=== PATIENT | female | born 1965 | race Caucasian/White ===

== ENCOUNTER 2016-04-20 16:00 | Outpatient (RCR) | payer BC ==
--- OUTSIDE RECORDS SUMMARY | 2016-01-30 10:58 | XMS REPORT | Continuity of Care Document ---
Author Author [facility] Organization [facility] Address Unknown Phone Unavailable Care Team Providers Care Web Applications Programmer Name Role Phone Benjaminfrances Sherif PCP [phone] Source Comments Some departments are not documenting in the electronic medical record. If you do not see the information that you expected, contact Release of Information in the Health Information Management department at [phone] for further assistance in locating additional records.[facility] Active Allergies and Adverse Reactions No Known Allergies Current Medications Prescription Sig. Disp. Refills Start End Date Status Date furosemide (LASIX) 40 mg Take 40 mg by mouth Active tablet daily. OMEPRAZOLE (PRILOSEC PO) Take 20 mg by mouth Active daily. ACYCLOVIR (ZOVIRAX PO) Take 400 mg by mouth Active daily as needed. LORATADINE (CLARITIN PO) Take 10 mg by mouth daily Active as needed (allergic rhinnitis). HYDROcodone/acetaminophen Take 1-2 Tabs by mouth 40 Tab 0 08/04/19 Active (NORCO; VICODIN) 5-325 mg every 4-6 hours as needed 16 tablet for Pain senna/docusate Take 1 Tab by mouth at 30 Tab 1 08/05/19 Active (SENOKOT-S) 8.6/50 mg bedtime daily. 16 tablet mupirocin (BACTROBAN) 2 % Apply 22 g to affected 22 g 0 08/22/19 Active topical ointment area three times daily. 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 Cheng is a female who presented to [facility] on 06/15/2015 at age 49 for evaluation of right breast cancer. She first felt a lump in the right breast in the summer of 2014, but thought it was scar tissue from her previous reduction. When the area began to enlarge she called her PCP who sent her for imaging. Right breast sono-guided biopsy 01/18/15 ([place], [place]) revealed grade [address] chest/abdomen 01/18/15 ([place], [place]) revealed no evidence of metastasis. On the chest CT there was a 5.1 cm mass in the right breast that did not extend into the skin or muscle. There were no significantly enlarged lymph nodes in the axilla. The most prominent lymph node was an 8 mm infracarinal lymph node that was most likely reactive. Bone scan ([place], [place]) 01/21/15 revealed no evidence of metastasis. Ms. Cheng underwent right RSL lumpectomy/SLNB/oncoplastic tissue rearrangement on 08/04/15. Final pathology revealed a 4 cm tumor bed with 3.1 cm residual tumor; 60% viable cancer cellularity; all margins at least 1 cm; LVI absent; 2 negative SLNs. BREAST IMAGING: Mammogram: -- Bilateral diagnostic mammogram 01/18/15 ([place], [place]) revealed a 6.2 cm lobulated mass in the right inferior and medial breast. There were no left breast abnormalities. -- Bilateral diagnostic mammogram 06/15/15 ([facility]) revealed the known cancer in the deep right medial breast, measuring 3.1 cm. A clip was seen on the anterior aspect. No additional masses were seen. The left breast was unremarkable. Ultrasound: -- Right breast ultrasound 01/18/15 ([place], [place]) revealed a 4.5 cm hypoechoic mass with lobulated margins and internal vascularity at 4:30, 8-10 cm FTN. -- Right breast ultrasound 03/14/15 ([place], [place]) revealed a 3.9 cm hypoechoic mass at 4:30, 10 cm FTN compared to 4.5 cm previously. -- Right breast ultrasound 04/22/15 ([place], [place]) revealed a 3.2 cm mass at 4:30 compared to 3.9 cm previously. There was decreased vascularity with color Doppler. -- Right breast ultrasound 06/15/15 ([facility]) revealed the known cancer right breast 4:30, 10 cm FTN, currently measuring 2.4 cm. No additional masses were seen. Evaluation of the axilla showed no adenopathy. REPRODUCTIVE HEALTH: Age at first Menarche: 14 Age at First Live : N/A Age at Menopause: premenopausal : 1 Para: 0 : N/A PROCEDURE: 1. Bilateral breast reduction, 1997 2. Right RSL lumpectomy/SLNB/oncoplastic tissue rearrangement, 08/04/15 PERTINENT PMH: Hypothyroidism, HLD, borderline HTN FAMILY HISTORY: No family history of breast, ovarian, or pancreatic cancer. Maternal great uncle with prostate cancer in 70s PHYSICAL EXAM on PRESENTATION: Left - Exam consistent with previous reduction. No palpable masses. Right - Exam consistent with previous reduction. Thickening at 4:30 with no discrete mass. No supraclavicular or axillary adenopathy. MEDICAL ONCOLOGY: Dr. Deidra Castellano PRESENT THERAPY: Neoadjuvant AC/taxol, finished 07/15/15 REFERRED BY: Dr. Deidra Castellano Social History Tobacco Use Types Packs/Day Years Used Date Never Smoker Smokeless Tobacco: Never Used Alcohol Use Drinks/Week oz/Week Comments No Last Filed Vital Signs Vital Sign Reading Time Taken Blood Pressure 169/98 08/22/2015 10:58 AM CDT Pulse 81 08/22/2015 10:58 AM CDT Temperature 36.7 C (98.1 F) 08/22/2015 10:58 AM CDT Respiratory Rate 16 08/15/2015 3:11 PM CDT Height 1.753 m (5' 9") 08/22/2015 10:58 AM CDT Weight 167.377 kg (369 lb) 08/22/2015 10:58 AM CDT Body Mass Index 54.47 08/22/2015 10:58 AM CDT Oxygen Saturation 99% 08/15/2015 3:11 PM CDT Plan of Care Date Type Specialty Providers Description 02/02/2016 Appointment Obstetrics & Gynecology Echo Ward MD [address] [facility] [address] [place] [address] [phone] (Fax) 02/20/2016 Appointment Radiology Clarence West DO [address] [facility] [address] [place] [address] [phone] (Fax) 02/20/2016 Appointment Breast Clinic / Breast [place], [place], [facility] 02/20/2016 Appointment Breast Clinic / Breast Clarence West DO Center [address] [facility] [address] [place] [address] [phone] (Fax) Health Maintenance Due Date Last Done Comments Physical (Comprehensive) 1972 Exam Pertussis Vaccine 1977 Tetanus Vaccine 10/07/1983 Cervical Cancer Screening 10/07/1987 Influenza Vaccine 12/01/2015 Breast Cancer Screening 06/14/2017 06/15/2015 Results from Last 3 Months Not on file
[2016-03-21 10:44] LABS: BASOPHILS % (AUTO) 0 % (0-10); EOSINOPHILS # (AUTO) 0.1 10^3/uL (0.0-0.3); EOSINOPHILS % (AUTO) 2 % (0-10); LYMPHOCYTES # (AUTO) 1.4 X 10^3 (1.0-4.0); LYMPHOCYTES % (AUTO) 22 % (12-44); MEAN CORPUSCULAR HEMOGLOBIN 29 PG (25-34); MEAN CORPUSCULAR HGB CONC 34 G/DL (32-36); MEAN CORPUSCULAR VOLUME 86 FL (80-99); MEAN PLATELET VOLUME 9.2 FL (7.4-10.4); MONOCYTES # (AUTO) 0.5 X 10^3 (0.0-1.0); MONOCYTES % (AUTO) 7 % (0-12); NEUTROPHILS # (AUTO) 4.3 X 10^3 (1.8-7.8); NEUTROPHILS % (AUTO) 68 % (42-75); PLATELET COUNT 220 10^3/uL (130-400); RED BLOOD COUNT 4.42 10^6/uL (4.35-5.85); RED CELL DISTRIBUTION WIDTH 13.8 % (10.0-14.5); WHITE BLOOD COUNT 6.3 10^3/uL (4.3-11.0)
[2016-03-21 11:27] LABS: ALANINE AMINOTRANSFERASE 34 U/L (0-55); ALBUMIN 3.8 G/DL (3.2-4.5); ANION GAP 5 MMOL/L (5-14); ASPARTATE AMINO TRANSFERASE 30 U/L (5-34); BILIRUBIN,TOTAL 0.5 MG/DL (0.1-1.0); BLOOD UREA NITROGEN 12 MG/DL (7-18); BUN/CREATININE RATIO 16; CALCIUM 8.7 MG/DL (8.5-10.1); CARBON DIOXIDE 28 MMOL/L (21-32); CHLORIDE 106 MMOL/L (98-107); CREATININE SERUM 0.76 MG/DL (0.60-1.30); GFR ESTIMATED > 60; GLUCOSE 100 MG/DL (70-105); POTASSIUM 3.9 MMOL/L (3.6-5.0); SODIUM 139 MMOL/L (135-145); TOTAL PROTEIN 6.2 G/DL (6.4-8.2)
[~2016-04-20 16:00] MED LIST: GOSERELIN (ZOLADEX) 10.8 MG SYR SQ NR; HYDR-3730 PO
== END 2016-04-29 | disposition home or self-care (01) ==
LOC: ONC 16:00
PROVIDERS: ATTEND Internal Medicine Hematology & Oncology
DX: C50.311 Malignant neoplasm of lower-inner quadrant of right female breast (principal); Z17.0 Estrogen receptor positive status [ER+]; Z79.899 Other long term (current) drug therapy; Z45.2 Encounter for adjustment and management of vascular access device
CPT/HCPCS: 36591; 80053; 85025; 96402; 96523; 99213

== ENCOUNTER → 2016-08-13 | Outpatient (CLI) | payer BC ==
[~2016-08-13] MED LIST changes: +BARIUM SUSPENSION 2.1% (VANILLA SILQ) 450 ML PO ONE; +CATHETER FLUSH 10 ML SYR IV PRN; -GOSERELIN (ZOLADEX) 10.8 MG SYR SQ NR; +IOHEXOL 350 MG/ML 100 ML (OMNIPAQUE 350) VIAL IV ONE; +NS 100 ML (IVPB) BAG IV ONE
[2016-08-13] MEDS: CATHETER FLUSH 10 ML SYR IV PRN ×2 (09:41→09:56)
--- NOTE | 2016-08-13 15:51 | Diagnostic Imaging Report ---
PROCEDURE: CT chest and abdomen with contrast. INDICATION: Breast cancer. TECHNIQUE: CT imaging of the chest and abdomen following the administration of intravenous contrast. CORRELATION STUDY: 01/18/2015. FINDINGS: CT CHEST: Surgical changes to the right breast are present. Increased density with architectural distortion adjacent to the anterior chest wall. Within the region of clips is a soft tissue density measuring 3.7 x 2.5 cm. Overall appearance of the right breast has changed since prior imaging. No suggestion of pathologically enlarged axillary lymph nodes. No mediastinal and/or hilar lymph nodes. Heart size is enlarged. Small hiatal hernia at the EG junction. The lung masterson are clear. Osseous structures without acute findings. CT ABDOMEN: Diffuse hepatic steatosis, with the liver enlarged. Several small gallstones. The spleen, pancreas and adrenal glands are unremarkable. The abdominal aorta is normal in contour. Kidneys with normal enhancement. The visualized gastrointestinal tract without obstruction or inflammation. Appendix is normal. No abdominal ascites or free air. No pathologically enlarged central, retroperitoneal and/or mesenteric lymphadenopathy. Osseous structures are unremarkable. Pelvis is not imaged. IMPRESSION: CT CHEST: 1. Surgical changes to the right breast. There has been change in the overall appearance of the density with the previously noted mass not demonstrated; however, there is a new soft tissue density adjacent to the chest wall. This may be postoperative, however, correlation with mammographic findings recommended. 2. Otherwise negative for acute findings in the chest. CT ABDOMEN: 1. Negative for abdominal metastatic disease. 2. Hepatomegaly with hepatic steatosis. 3. Cholelithiasis. Dictated by: Dictated on workstation # [id number]
--- NOTE | 2016-08-13 19:17 | Diagnostic Imaging Report ---
Whole body bone scan. Technique: After the intravenous administration of 27.1 mCi of Technetium 99m MDP, whole body delayed phase bone scan images were obtained with lateral views of the head and neck and the chest regions. Indication: History of breast cancer. Findings: There is normal distribution of the radiotracer in the osseous structures. There is a urinary tract excretion seen. Mild increased uptake in the knees, ankles and to lesser extent in other joints are noted with no suspicious intense areas of increased uptake seen within the axial skeleton to suggest osseous metastasis. IMPRESSION: No scintigraphic evidence of osseous metastasis. Dictated by: Dictated on workstation # [id number]
--- NOTE | 2016-08-13 20:01 | Diagnostic Imaging Report ---
Bilateral diagnostic mammogram. The current study was also evaluated with a Computer Aided Detection (CAD) system. INDICATION: History of right breast cancer. Right breast pain. COMPARISON: 02/20/2016. FINDINGS: The breasts are composed of scattered fibroglandular densities. There are surgical clips in the medial aspect of the right breast. Post lumpectomy changes on the right side and post reduction changes are seen on the left side. No developing mass, suspicious calcification or architectural distortion is seen. IMPRESSION: Postsurgical changes seen in both breasts with no mammographic evidence for malignancy. Ultrasound evaluation of area of pain in the right breast is pending. ACR BI-RADS Category 0: Incomplete. (Needs additional imaging evaluation). Result letter will be mailed to the patient. Note: At least 10% of breast cancer is not imaged by mammography. Dictated by: Dictated on workstation # [id number]
--- NOTE | 2016-08-13 20:09 | Diagnostic Imaging Report ---
Right breast ultrasound. INDICATION: Right breast pain. FINDINGS: There is 2.3 x 1.2 x 2.4 cm complex cystic area with internal hypoechogenicity that does not demonstrate internal color flow with color Doppler likely related to a complicated seroma with internal debris or blood products and this is seen at the 4 o'clock position at the lumpectomy site area. Area of pain in the medial aspect of the right breast is included in the scanned area and demonstrates no definite abnormality. IMPRESSION: Findings suggestive of complicated seroma at the lumpectomy site. Six-month follow-up right breast mammogram and ultrasound is recommended to ensure stability. ACR BI-RADS Category 3: Probably benign findings. Dictated by: Dictated on workstation # [id number]
== END ==
LOC: RAD 08:07
PROVIDERS: ATTEND Nurse Practitioner Adult Health
DX: C50.311 Malignant neoplasm of lower-inner quadrant of right female breast (principal); N64.4 Mastodynia
CPT/HCPCS: 71260; 74160; 77066; 78306

== ENCOUNTER → 2016-08-14 | Outpatient (RCR) | payer BC ==
--- OUTSIDE RECORDS SUMMARY | 2016-05-16 14:01 | XMS REPORT | Continuity of Care Document ---
Author Author [facility] Organization [facility] Address Unknown Phone Unavailable Care Team Providers Care Dealer Compliance Representative Name Role Phone Madison Sherif PCP [phone] Source Comments Some departments are not documenting in the electronic medical record. If you do not see the information that you expected, contact Release of Information in the Health Information Management department at [phone] for further assistance in locating additional records.[facility] Active Allergies and Adverse Reactions No Known Allergies Current Medications Prescription Sig. Disp. Refills Start End Date Status Date furosemide (LASIX) 40 mg Take 40 mg by mouth Active tablet daily. OMEPRAZOLE (PRILOSEC PO) Take 20 mg by mouth Active daily. LORATADINE (CLARITIN PO) Take 10 mg by mouth daily Active as needed (allergic rhinnitis). senna/docusate Take 1 Tab by mouth at 30 Tab 1 08/05/19 Active (SENOKOT-S) 8.6/50 mg bedtime daily. 16 tablet mupirocin (BACTROBAN) 2 % Apply 22 g to affected 22 g 0 08/22/19 Active topical ointment area three times daily. 16 tamoxifen (NOLVADEX) 20 Take 20 mg by mouth at Active mg tablet bedtime daily. lisinopril (PRINIVIL) 10 Take 10 mg by mouth Active mg tablet daily. amLODIPine (NORVASC) 10 Take 10 mg by mouth Active mg tablet daily. Active Problems Problem Noted Date Malignant neoplasm [...] for imaging. Right breast sono-guided biopsy 01/18/15 ([place], [place]) revealed grade [address] chest/abdomen 01/18/15 ([place], [place]) revealed no evidence of metastasis. On the chest CT there was a 5.1 cm mass in the right breast that did not extend into the skin or muscle. There were no significantly enlarged lymph nodes in the axilla. The most prominent lymph node was an 8 mm infracarinal lymph node that was most likely reactive. Bone scan ([place], [place]) 01/21/15 revealed no evidence of metastasis. Ms. Cheng underwent right RSL lumpectomy/SLNB/oncoplastic tissue rearrangement on 08/04/15. Final pathology revealed a 4 cm tumor bed with 3.1 cm residual tumor; 60% viable cancer cellularity; all margins at least 1 cm; LVI absent; 2 negative SLNs. She finished radiation therapy with Dr. Mei in 10/2015. She started Tamoxifen in 10/2015. BREAST IMAGING: Mammogram: -- Bilateral diagnostic mammogram 01/18/15 ([place], [place]) revealed a 6.2 cm lobulated mass in the right inferior and medial breast. There were no left breast abnormalities. -- Bilateral diagnostic mammogram 06/15/15 () revealed the known cancer in the deep right medial breast, measuring 3.1 cm. A clip was seen on the anterior aspect. No additional masses were seen. The left breast was unremarkable. Ultrasound: -- Right breast ultrasound 01/18/15 ([place], [place]) revealed a 4.5 cm hypoechoic mass with lobulated margins and internal vascularity at 4:30, 8-10 cm FTN. -- Right breast ultrasound 03/14/15 ([place], [place]) revealed a 3.9 cm hypoechoic mass at 4:30, 10 cm FTN compared to 4.5 cm previously. -- Right breast ultrasound 04/22/15 ([place], [place]) revealed a 3.2 cm mass at [...] Deidra Castellano PRESENT THERAPY: Neoadjuvant AC/taxol, finished 07/15/15. Tamoxifen started 10/2015. REFERRED BY: Dr. Deidra Castellano Most Recent Encounters Date Type Specialty Providers Description 03/07/2016 Telephone Breast Clinic / Breast Clarence West DO Appointment - clinic Center freeze, patient reschedule 02/21/2016 Telephone Oncology Clarence West DO Results 02/20/2016 Office Visit Breast Clinic / Breast Clarence West DO Malignant neoplasm of Center lower-inner quadrant of right female breast (HCC) (Primary Dx) 02/20/2016 Nurse Only Breast Clinic / Breast Clarence West DO At risk for lymphedema Center Xenia Pugh RN (Primary Dx) 02/20/2016 Hospital Radiology Clarence West DO Encounter Carisa Aleman PA-C 02/20/2016 Ancillary Breast Clinic / Breast Carisa Aleman PA-C Malignant neoplasm of Orders Center lower-inner quadrant of right female breast (HCC) (Primary Dx) Social History Tobacco Use Types Packs/Day Years Used Date Never Smoker Smokeless Tobacco: Never Used Alcohol Use Drinks/Week oz/Week Comments No Last Filed Vital Signs Vital Sign Reading Time Taken Blood Pressure 138/88 02/20/2016 3:17 PM DIAGNOSTIC IMAGING MANAGER Pulse 82 02/20/2016 3:17 PM DIAGNOSTIC IMAGING MANAGER Temperature 36.6 C (97.8 F) 02/20/2016 3:17 PM DIAGNOSTIC IMAGING MANAGER Respiratory Rate 16 02/20/2016 3:17 PM DIAGNOSTIC IMAGING MANAGER Height 1.753 m (5' 9.02") 02/20/2016 3:17 PM DIAGNOSTIC IMAGING MANAGER Weight 165.109 kg (364 lb) 02/20/2016 3:17 PM DIAGNOSTIC IMAGING MANAGER Body Mass Index 53.73 02/20/2016 3:17 PM DIAGNOSTIC IMAGING MANAGER Oxygen Saturation 99% 02/20/2016 3:17 PM DIAGNOSTIC IMAGING MANAGER Plan of Care Date Type Specialty Providers Description 09/17/2016 Appointment Breast Clinic / Breast Xenia Pugh, RN Center 09/17/2016 Appointment Breast Clinic / Breast Clarence West DO Center [address] [place] [address] [phone] (Fax) 09/17/2016 Appointment Radiology Clarence West DO [address] [place] [address] [phone] (Fax) Health Maintenance Due Date Last Done Comments Physical (Comprehensive) 1972 Exam Pertussis Vaccine 1977 Tetanus Vaccine 10/07/1983 Cervical Cancer Screening 10/07/1987 Influenza Vaccine 12/01/2015 Breast Cancer Screening 06/14/2016 06/15/2015 Results from Last 3 Months MAMMO DIAGNOSTIC RT/ZIGGY (02/20/2016 2:22 PM) Impressions ACR BI-RADS Assessments: BIRAD 2-Benign RECOMMENDATION: Routine screening mammogram of both breasts in 6 months. Narrative Last mammogram was performed 8 months ago. Reason for exam: history of breast cancer, conservation therapy. first time back from reduction and lumpectomy. Performed by: Kendal Lamas Enterprise Project Manager [id number] MAMMO DIAGNOSTIC RT/ZIGGY: RIGHT BREAST - FEBRUARY 20, 2016 - 2D/3D Procedure 3D Routine views. 2D Routine views. Technologist: [employer] Prior study comparison: August 02, 2015, right breast [id number] MAMMO DIAG RT, performed at [facility].June 15, 2015, bilateral [id number] MAMMO DIAGNOSTIC CHANDRAKANT/ZIGGY, performed at [facility] Breast [facility].June 15, 2015, right breast [id number] US BREAST TARGET RT, performed at [facility]. April 22, 2015, right breast ultrasound.March 14, 2015, right breast ultrasound. There are scattered areas of fibroglandular density.50-year-old female presents for initial postoperative evaluation of the right breast after lumpectomy and radiation therapy. New right breast baseline. 2-D and 3-D tomosynthesis images were obtained of the right breast. Post therapeutic changes are demonstrated. No mass, microcalcification, or suspicious architectural distortion is identified. Approved by Shari Lewis D.O. on 02/20/2016 3:18 PM By my electronic signature, I attest that I have personally reviewed the images for this examination and formulated the interpretations and opinions expressed in this report Finalized by Sony Ritchie M.D. on 02/20/2016 4:15 PM. Dictated by Shari Lewis D.O. on 02/20/2016 2:27 PM. Electronically signed and approved by: Sony Ritchie M.D. [id number] Procedure Note Interface, Radiant Results - Mon Feb 20, 2016 4:16 PM DIAGNOSTIC IMAGING MANAGER Last mammogram was performed 8 months ago. Reason for exam: history of breast cancer, conservation therapy. first time back from reduction and lumpectomy. Performed by: Kendal Lamas Enterprise Project Manager [id number] MAMMO DIAGNOSTIC RT/ZIGGY: RIGHT BREAST - FEBRUARY 20, 2016 - 2D/3D Procedure 3D Routine views. 2D Routine views. Technologist: Elton Painting Prior study comparison: August 02, 2015, right breast [id number] MAMMO DIAG RT, performed at [facility]. June 15, 2015, bilateral [id number] MAMMO DIAGNOSTIC CHANDRAKANT/ZIGGY, performed at [facility] Breast I. June 15, 2015, right breast [id number] US BREAST TARGET RT, performed at [facility]. April 22, 2015, right breast ultrasound. March 14, 2015, right breast ultrasound. There are scattered areas of fibroglandular density. 50-year-old female presents for initial postoperative evaluation of the right breast after lumpectomy and radiation therapy. New right breast baseline. 2-D and 3-D tomosynthesis images were obtained of the right breast. Post therapeutic changes are demonstrated. No mass, microcalcification, or suspicious architectural distortion is identified. Approved by Shari Lewis D.O. on 02/20/2016 3:18 PM By my electronic signature, I attest that I have personally reviewed the images for this examination and formulated the interpretations and opinions expressed in this report Finalized by Sony Ritchie M.D. on 02/20/2016 4:15 PM. Dictated by Shari Lewis D.O. on 02/20/2016 2:27 PM. Electronically signed and approved by: Sony Ritchie M.D. [id number] IMPRESSION ACR BI-RADS Assessments: BIRAD 2-Benign RECOMMENDATION: Routine screening mammogram of both breasts in 6 months.
[2016-06-13 11:21] LABS: BASOPHILS % (AUTO) 0 % (0-10); EOSINOPHILS # (AUTO) 0.1 10^3/uL (0.0-0.3); EOSINOPHILS % (AUTO) 2 % (0-10); LYMPHOCYTES # (AUTO) 1.3 X 10^3 (1.0-4.0); LYMPHOCYTES % (AUTO) 22 % (12-44); MEAN CORPUSCULAR HEMOGLOBIN 29 PG (25-34); MEAN CORPUSCULAR HGB CONC 34 G/DL (32-36); MEAN CORPUSCULAR VOLUME 87 FL (80-99); MEAN PLATELET VOLUME 9.2 FL (7.4-10.4); MONOCYTES # (AUTO) 0.4 X 10^3 (0.0-1.0); MONOCYTES % (AUTO) 6 % (0-12); NEUTROPHILS # (AUTO) 4.1 X 10^3 (1.8-7.8); NEUTROPHILS % (AUTO) 69 % (42-75); PLATELET COUNT 229 10^3/uL (130-400); RED BLOOD COUNT 4.43 10^6/uL (4.35-5.85); RED CELL DISTRIBUTION WIDTH 13.8 % (10.0-14.5)
[2016-06-13 11:47] LABS: ALANINE AMINOTRANSFERASE 38 U/L (0-55); ALBUMIN 3.6 G/DL (3.2-4.5); ANION GAP 10 MMOL/L (5-14); ASPARTATE AMINO TRANSFERASE 36 U/L (5-34); BILIRUBIN,TOTAL 0.5 MG/DL (0.1-1.0); BLOOD UREA NITROGEN 10 MG/DL (7-18); BUN/CREATININE RATIO 13; CALCIUM 8.8 MG/DL (8.5-10.1); CARBON DIOXIDE 23 MMOL/L (21-32); CHLORIDE 108 MMOL/L (98-107); CREATININE SERUM 0.75 MG/DL (0.60-1.30); GFR ESTIMATED > 60; GLUCOSE 113 MG/DL (70-105); SODIUM 141 MMOL/L (135-145); TOTAL PROTEIN 6.1 G/DL (6.4-8.2)
[2016-07-12 15:57] LABS: BASOPHILS % (AUTO) 0 % (0-10); EOSINOPHILS # (AUTO) 0.2 10^3/uL (0.0-0.3); EOSINOPHILS % (AUTO) 2 % (0-10); LYMPHOCYTES # (AUTO) 1.9 X 10^3 (1.0-4.0); LYMPHOCYTES % (AUTO) 26 % (12-44); MEAN CORPUSCULAR HEMOGLOBIN 29 PG (25-34); MEAN CORPUSCULAR HGB CONC 34 G/DL (32-36); MEAN CORPUSCULAR VOLUME 87 FL (80-99); MEAN PLATELET VOLUME 9.3 FL (7.4-10.4); MONOCYTES # (AUTO) 0.5 X 10^3 (0.0-1.0); MONOCYTES % (AUTO) 6 % (0-12); NEUTROPHILS # (AUTO) 4.9 X 10^3 (1.8-7.8); NEUTROPHILS % (AUTO) 66 % (42-75); PLATELET COUNT 248 10^3/uL (130-400); RED BLOOD COUNT 4.44 10^6/uL (4.35-5.85); RED CELL DISTRIBUTION WIDTH 13.6 % (10.0-14.5); WHITE BLOOD COUNT 7.5 10^3/uL (4.3-11.0)
[2016-07-12 16:23] LABS: ANION GAP 9 MMOL/L (5-14); BLOOD UREA NITROGEN 10 MG/DL (7-18); CARBON DIOXIDE 26 MMOL/L (21-32); CHLORIDE 107 MMOL/L (98-107); CREATININE SERUM 0.81 MG/DL (0.60-1.30); POTASSIUM 3.9 MMOL/L (3.6-5.0); SODIUM 142 MMOL/L (135-145)
[2016-07-12 16:24] LABS: ALANINE AMINOTRANSFERASE 36 U/L (0-55); ALBUMIN 3.6 G/DL (3.2-4.5); ASPARTATE AMINO TRANSFERASE 33 U/L (5-34); BILIRUBIN,TOTAL 0.3 MG/DL (0.1-1.0); BUN/CREATININE RATIO 12; CALCIUM 8.7 MG/DL (8.5-10.1); GFR ESTIMATED > 60; GLUCOSE 123 MG/DL (70-105); TOTAL PROTEIN 6.3 G/DL (6.4-8.2)
[2016-08-13 10:26] LABS: BASOPHILS % (AUTO) 1 % (0-10); EOSINOPHILS # (AUTO) 0.2 10^3/uL (0.0-0.3); EOSINOPHILS % (AUTO) 3 % (0-10); LYMPHOCYTES # (AUTO) 1.4 X 10^3 (1.0-4.0); LYMPHOCYTES % (AUTO) 24 % (12-44); MEAN CORPUSCULAR HEMOGLOBIN 30 PG (25-34); MEAN CORPUSCULAR HGB CONC 34 G/DL (32-36); MEAN CORPUSCULAR VOLUME 88 FL (80-99); MEAN PLATELET VOLUME 9.6 FL (7.4-10.4); MONOCYTES # (AUTO) 0.4 X 10^3 (0.0-1.0); MONOCYTES % (AUTO) 8 % (0-12); NEUTROPHILS # (AUTO) 3.8 X 10^3 (1.8-7.8); NEUTROPHILS % (AUTO) 65 % (42-75); PLATELET COUNT 213 10^3/uL (130-400); RED BLOOD COUNT 4.22 10^6/uL (4.35-5.85); RED CELL DISTRIBUTION WIDTH 13.6 % (10.0-14.5); WHITE BLOOD COUNT 5.9 10^3/uL (4.3-11.0)
[2016-08-13 11:11] LABS: ALANINE AMINOTRANSFERASE 40 U/L (0-55); ALBUMIN 3.6 G/DL (3.2-4.5); ANION GAP 6 MMOL/L (5-14); ASPARTATE AMINO TRANSFERASE 38 U/L (5-34); BILIRUBIN,TOTAL 0.5 MG/DL (0.1-1.0); BLOOD UREA NITROGEN 9 MG/DL (7-18); BUN/CREATININE RATIO 12; CALCIUM 8.8 MG/DL (8.5-10.1); CARBON DIOXIDE 27 MMOL/L (21-32); CHLORIDE 108 MMOL/L (98-107); CREATININE SERUM 0.77 MG/DL (0.60-1.30); GFR ESTIMATED > 60; GLUCOSE 112 MG/DL (70-105); POTASSIUM 4.3 MMOL/L (3.6-5.0); SODIUM 141 MMOL/L (135-145)
[~2016-08-14] MED LIST changes: -BARIUM SUSPENSION 2.1% (VANILLA SILQ) 450 ML PO ONE; -CATHETER FLUSH 10 ML SYR IV PRN; +GOSERELIN (ZOLADEX) 10.8 MG SYR SQ PRN; -IOHEXOL 350 MG/ML 100 ML (OMNIPAQUE 350) VIAL IV ONE; -NS 100 ML (IVPB) BAG IV ONE
== END | disposition home or self-care (01) ==
LOC: ONC 05-16 13:58
PROVIDERS: ATTEND Internal Medicine Hematology & Oncology
DX: C50.311 Malignant neoplasm of lower-inner quadrant of right female breast (principal); Z17.0 Estrogen receptor positive status [ER+]; Z79.899 Other long term (current) drug therapy; Z45.2 Encounter for adjustment and management of vascular access device
CPT/HCPCS: 36591; 80053; 85025; 96402; 96523; 99213

== ENCOUNTER → 2016-11-19 | Outpatient (CLI) | payer BC ==
[~2016-11-19] MED LIST changes: -GOSERELIN (ZOLADEX) 10.8 MG SYR SQ PRN
--- NOTE | 2016-11-19 10:43 | Diagnostic Imaging Report ---
INDICATION: History of breast cancer, followup seroma in the left breast. COMPARISON: 08/13/2016. FINDINGS: The focused ultrasound examination of the 4 o'clock position of the left breast demonstrates a partial fluid collection that is stable in size measuring 25 x 11 mm. Overall, there is slightly more echogenic material, likely representing resolving seroma and/or hematoma. There is no abnormal blood flow. The adjacent smaller seroma is no longer seen on this followup study. IMPRESSION: Likely evolving benign seroma with more solid components on today's exam. An additional 6 month followup is recommended. ACR BI-RADS Category 3: Probably benign findings. Result letter will be mailed to the patient. Note: At least 10% of breast cancer is not imaged by mammography. Dictated by: Dictated on workstation # [id number]
== END ==
LOC: RAD 08:52
PROVIDERS: ATTEND Nurse Practitioner Adult Health
DX: N64.89 Other specified disorders of breast (principal); C50.311 Malignant neoplasm of lower-inner quadrant of right female breast

== ENCOUNTER 2016-11-29 12:57 | Outpatient (RCR) | payer BC ==
[2016-09-06 13:15] LABS: BASOPHILS % (AUTO) 1 % (0-10); EOSINOPHILS # (AUTO) 0.2 10^3/uL (0.0-0.3); EOSINOPHILS % (AUTO) 3 % (0-10); LYMPHOCYTES # (AUTO) 1.7 X 10^3 (1.0-4.0); LYMPHOCYTES % (AUTO) 26 % (12-44); MEAN CORPUSCULAR HEMOGLOBIN 30 PG (25-34); MEAN CORPUSCULAR HGB CONC 34 G/DL (32-36); MEAN CORPUSCULAR VOLUME 87 FL (80-99); MEAN PLATELET VOLUME 9.4 FL (7.4-10.4); MONOCYTES # (AUTO) 0.4 X 10^3 (0.0-1.0); MONOCYTES % (AUTO) 7 % (0-12); NEUTROPHILS # (AUTO) 4.1 X 10^3 (1.8-7.8); NEUTROPHILS % (AUTO) 63 % (42-75); PLATELET COUNT 219 10^3/uL (130-400); RED BLOOD COUNT 4.27 10^6/uL (4.35-5.85); RED CELL DISTRIBUTION WIDTH 13.6 % (10.0-14.5); WHITE BLOOD COUNT 6.5 10^3/uL (4.3-11.0)
[2016-09-06 13:39] LABS: ALANINE AMINOTRANSFERASE 40 U/L (0-55); ALBUMIN 3.6 G/DL (3.2-4.5); ANION GAP 9 MMOL/L (5-14); ASPARTATE AMINO TRANSFERASE 36 U/L (5-34); BILIRUBIN,TOTAL 0.3 MG/DL (0.1-1.0); BLOOD UREA NITROGEN 9 MG/DL (7-18); BUN/CREATININE RATIO 12; CALCIUM 9.2 MG/DL (8.5-10.1); CARBON DIOXIDE 26 MMOL/L (21-32); CHLORIDE 108 MMOL/L (98-107); CREATININE SERUM 0.74 MG/DL (0.60-1.30); GFR ESTIMATED > 60; GLUCOSE 104 MG/DL (70-105); POTASSIUM 3.9 MMOL/L (3.6-5.0); SODIUM 143 MMOL/L (135-145); TOTAL PROTEIN 6.5 G/DL (6.4-8.2)
[~2016-11-29 12:57] MED LIST changes: +GOSERELIN (ZOLADEX) 10.8 MG SYR SQ PRN
[2016-11-29 13:16] LABS: BASOPHILS % (AUTO) 0 % (0-10); EOSINOPHILS # (AUTO) 0.2 10^3/uL (0.0-0.3); EOSINOPHILS % (AUTO) 3 % (0-10); LYMPHOCYTES # (AUTO) 1.7 X 10^3 (1.0-4.0); LYMPHOCYTES % (AUTO) 24 % (12-44); MEAN CORPUSCULAR HEMOGLOBIN 30 PG (25-34); MEAN CORPUSCULAR HGB CONC 34 G/DL (32-36); MEAN CORPUSCULAR VOLUME 88 FL (80-99); MEAN PLATELET VOLUME 9.7 FL (7.4-10.4); MONOCYTES # (AUTO) 0.4 X 10^3 (0.0-1.0); MONOCYTES % (AUTO) 6 % (0-12); NEUTROPHILS # (AUTO) 4.5 X 10^3 (1.8-7.8); NEUTROPHILS % (AUTO) 66 % (42-75); PLATELET COUNT 219 10^3/uL (130-400); RED BLOOD COUNT 4.19 10^6/uL (4.35-5.85); RED CELL DISTRIBUTION WIDTH 13.2 % (10.0-14.5); WHITE BLOOD COUNT 6.8 10^3/uL (4.3-11.0)
[2016-11-29 13:36] LABS: ALANINE AMINOTRANSFERASE 35 U/L (0-55); ALBUMIN 3.6 GM/DL (3.2-4.5); ANION GAP 9 MMOL/L (5-14); ASPARTATE AMINO TRANSFERASE 37 U/L (5-34); BILIRUBIN,TOTAL 0.4 MG/DL (0.1-1.0); BLOOD UREA NITROGEN 10 MG/DL (7-18); BUN/CREATININE RATIO 14; CALCIUM 8.7 MG/DL (8.5-10.1); CARBON DIOXIDE 24 MMOL/L (21-32); CHLORIDE 108 MMOL/L (98-107); CREATININE SERUM 0.73 MG/DL (0.60-1.30); GFR ESTIMATED > 60; GLUCOSE 117 MG/DL (70-105); POTASSIUM 3.9 MMOL/L (3.6-5.0); SODIUM 141 MMOL/L (135-145)
[2016-11-29] MEDS ORDERED: GOSERELIN ACETATE 3.6 MG SC ONE ×2 (14:15)
== END 2016-12-05 | disposition home or self-care (01) ==
LOC: ONC 12:57
PROVIDERS: ATTEND Internal Medicine Hematology & Oncology
DX: C50.311 Malignant neoplasm of lower-inner quadrant of right female breast (principal); Z17.0 Estrogen receptor positive status [ER+]; Z79.899 Other long term (current) drug therapy
CPT/HCPCS: 36591; 80053; 85025; 96402; 96523

== ENCOUNTER 2016-12-28 09:49 | Outpatient (RCR) | payer BC ==
[~2016-12-28 09:49] MED LIST changes: -GOSERELIN (ZOLADEX) 10.8 MG SYR SQ PRN; +GOSERELIN ACETATE 3.6 MG SC ONE
== END 2016-12-29 | disposition home or self-care (01) ==
LOC: ONC 09:49
PROVIDERS: ATTEND Internal Medicine Hematology & Oncology
DX: Z17.0 Estrogen receptor positive status [ER+]; Z45.2 Encounter for adjustment and management of vascular access device; C50.311 Malignant neoplasm of lower-inner quadrant of right female breast; Z79.899 Other long term (current) drug therapy
CPT/HCPCS: 96402; 96523

== ENCOUNTER 2017-04-19 12:14 | Outpatient (RCR) | payer BC ==
[2017-02-20 09:04] LABS: BASOPHILS % (AUTO) 1 % (0-10); EOSINOPHILS # (AUTO) 0.2 10^3/uL (0.0-0.3); EOSINOPHILS % (AUTO) 3 % (0-10); HEMATOCRIT 39 % (35-52); HEMOGLOBIN 13.5 G/DL (11.5-16.0); LYMPHOCYTES # (AUTO) 1.4 X 10^3 (1.0-4.0); LYMPHOCYTES % (AUTO) 24 % (12-44); MEAN CORPUSCULAR HEMOGLOBIN 31 PG (25-34); MEAN CORPUSCULAR HGB CONC 35 G/DL (32-36); MEAN CORPUSCULAR VOLUME 88 FL (80-99); MEAN PLATELET VOLUME 9.9 FL (7.4-10.4); MONOCYTES # (AUTO) 0.4 X 10^3 (0.0-1.0); MONOCYTES % (AUTO) 6 % (0-12); NEUTROPHILS # (AUTO) 3.7 X 10^3 (1.8-7.8); NEUTROPHILS % (AUTO) 66 % (42-75); PLATELET COUNT 200 10^3/uL (130-400); RED BLOOD COUNT 4.41 10^6/uL (4.35-5.85); RED CELL DISTRIBUTION WIDTH 13.1 % (10.0-14.5); WHITE BLOOD COUNT 5.6 10^3/uL (4.3-11.0)
[2017-02-20 09:26] LABS: ALANINE AMINOTRANSFERASE 28 U/L (0-55); ALBUMIN 3.7 GM/DL (3.2-4.5); ALKALINE PHOSPHATASE 68 U/L (40-136); BILIRUBIN,TOTAL 0.5 MG/DL (0.1-1.0); BUN/CREATININE RATIO 20; CARBON DIOXIDE 21 MMOL/L (21-32); CHLORIDE 109 MMOL/L (98-107); CREATININE SERUM 0.79 MG/DL (0.60-1.30); GFR ESTIMATED > 60; GLUCOSE 149 MG/DL (70-105); POTASSIUM 3.8 MMOL/L (3.6-5.0); SODIUM 142 MMOL/L (135-145); TOTAL PROTEIN 6.3 GM/DL (6.4-8.2)
[~2017-04-19 12:14] MED LIST changes: +GOSERELIN ACETATE 3.6 MG SC SCH
== END 2017-04-25 14:55 | disposition home or self-care (01) ==
LOC: ONC 12:14
PROVIDERS: ATTEND Internal Medicine Hematology & Oncology
DX: C50.311 Malignant neoplasm of lower-inner quadrant of right female breast (principal); Z17.0 Estrogen receptor positive status [ER+]; Z79.899 Other long term (current) drug therapy
CPT/HCPCS: 80053; 85025; 96402

== ENCOUNTER 2017-05-15 09:06 | Outpatient (RCR) | payer OTHER, BC ==
[~2017-05-15 09:06] MED LIST changes: -GOSERELIN ACETATE 3.6 MG SC SCH
[2017-05-15 09:25] LABS: BASOPHILS % (AUTO) 0 % (0-10); EOSINOPHILS # (AUTO) 0.1 10^3/uL (0.0-0.3); EOSINOPHILS % (AUTO) 2 % (0-10); HEMATOCRIT 39 % (35-52); HEMOGLOBIN 13.5 G/DL (11.5-16.0); LYMPHOCYTES # (AUTO) 1.8 X 10^3 (1.0-4.0); LYMPHOCYTES % (AUTO) 27 % (12-44); MEAN CORPUSCULAR HEMOGLOBIN 30 PG (25-34); MEAN CORPUSCULAR HGB CONC 35 G/DL (32-36); MEAN CORPUSCULAR VOLUME 87 FL (80-99); MEAN PLATELET VOLUME 9.3 FL (7.4-10.4); MONOCYTES # (AUTO) 0.4 X 10^3 (0.0-1.0); MONOCYTES % (AUTO) 6 % (0-12); NEUTROPHILS # (AUTO) 4.4 X 10^3 (1.8-7.8); NEUTROPHILS % (AUTO) 65 % (42-75); PLATELET COUNT 251 10^3/uL (130-400); RED BLOOD COUNT 4.44 10^6/uL (4.35-5.85); WHITE BLOOD COUNT 6.8 10^3/uL (4.3-11.0)
[2017-05-15 09:49] LABS: ALANINE AMINOTRANSFERASE 20 U/L (0-55); ALBUMIN 3.8 GM/DL (3.2-4.5); ALKALINE PHOSPHATASE 61 U/L (40-136); BILIRUBIN,TOTAL 0.5 MG/DL (0.1-1.0); BUN/CREATININE RATIO 16; CALCIUM 9.3 MG/DL (8.5-10.1); CARBON DIOXIDE 25 MMOL/L (21-32); CHLORIDE 109 MMOL/L (98-107); CREATININE SERUM 0.77 MG/DL (0.60-1.30); GFR ESTIMATED > 60; GLUCOSE 121 MG/DL (70-105); POTASSIUM 3.9 MMOL/L (3.6-5.0); SODIUM 142 MMOL/L (135-145); TOTAL PROTEIN 6.6 GM/DL (6.4-8.2)
[2017-05-15] MEDS ORDERED: GOSERELIN (ZOLADEX) 10.8 MG SYR SQ PRN (10:30)
== END 2017-07-18 | disposition home or self-care (01) ==
LOC: ONC 09:06
PROVIDERS: ATTEND Internal Medicine Hematology & Oncology
DX: C50.311 Malignant neoplasm of lower-inner quadrant of right female breast (principal); Z17.0 Estrogen receptor positive status [ER+]; Z79.899 Other long term (current) drug therapy
CPT/HCPCS: 80053; 85025; 96402

== ENCOUNTER → 2017-05-23 | Outpatient (CLI) | payer OTHER, BC ==
[~2017-05-23] MED LIST changes: -GOSERELIN ACETATE 3.6 MG SC ONE
--- NOTE | 2017-05-23 18:31 | Diagnostic Imaging Report ---
INDICATION: Right breast fluid collection. Patient presents for six-month follow-up. Correlation is made with prior ultrasound from 11/19/2016. FINDINGS: Sonographic interrogation of the 4 o'clock location of the right breast was performed. There continues to be slightly complex fluid collection at this location measuring 24 mm x 13 mm x 12 mm compared with 26 mm x 11 mm x 14 mm. There continues to be some internal debris. No internal vascularity is seen. No new abnormality is detected. IMPRESSION: Stable complex collection at the 4 o'clock location of the right breast, perhaps a resolving hematoma from prior surgery. Continued follow-up with repeat ultrasound in six months is recommended. ACR BI-RADS Category 3: Probably benign findings. Dictated by: Dictated on workstation # [id number]
== END ==
LOC: RAD 09:07
PROVIDERS: ATTEND Internal Medicine Hematology & Oncology
DX: C50.311 Malignant neoplasm of lower-inner quadrant of right female breast (principal); N64.89 Other specified disorders of breast

== ENCOUNTER 2017-08-07 08:48 | Outpatient (RCR) | payer BC, OTHER ==
[~2017-08-07 08:48] MED LIST changes: +GOSERELIN (ZOLADEX) 10.8 MG SYR SQ PRN
[2017-08-07 09:03] LABS: BASOPHILS % (AUTO) 0 % (0-10); EOSINOPHILS # (AUTO) 0.2 10^3/uL (0.0-0.3); EOSINOPHILS % (AUTO) 2 % (0-10); HEMATOCRIT 40 % (35-52); HEMOGLOBIN 13.9 G/DL (11.5-16.0); LYMPHOCYTES # (AUTO) 2.3 X 10^3 (1.0-4.0); LYMPHOCYTES % (AUTO) 29 % (12-44); MEAN CORPUSCULAR HEMOGLOBIN 29 PG (25-34); MEAN CORPUSCULAR HGB CONC 34 G/DL (32-36); MEAN CORPUSCULAR VOLUME 85 FL (80-99); MEAN PLATELET VOLUME 9.7 FL (7.4-10.4); MONOCYTES # (AUTO) 0.5 X 10^3 (0.0-1.0); MONOCYTES % (AUTO) 6 % (0-12); NEUTROPHILS % (AUTO) 63 % (42-75); PLATELET COUNT 256 10^3/uL (130-400); RED BLOOD COUNT 4.75 10^6/uL (4.35-5.85); RED CELL DISTRIBUTION WIDTH 13.5 % (10.0-14.5)
[2017-08-07 09:30] LABS: ALANINE AMINOTRANSFERASE 23 U/L (0-55); ALKALINE PHOSPHATASE 68 U/L (40-136); BILIRUBIN,TOTAL 0.5 MG/DL (0.1-1.0); BUN/CREATININE RATIO 15; CALCIUM 9.1 MG/DL (8.5-10.1); CARBON DIOXIDE 23 MMOL/L (21-32); CHLORIDE 107 MMOL/L (98-107); CREATININE SERUM 0.86 MG/DL (0.60-1.30); GFR ESTIMATED > 60; GLUCOSE 149 MG/DL (70-105); POTASSIUM 3.7 MMOL/L (3.6-5.0); SODIUM 140 MMOL/L (135-145); TOTAL PROTEIN 6.6 GM/DL (6.4-8.2)
[2017-09-18] MEDS ORDERED: LORA10TA76 PO (10:21)
[2017-09-18] MEDS ORDERED: OMEP20TA7 PO (10:21)
[2017-09-18] MEDS ORDERED: TAMO20TA2 PO (10:21)
[2017-09-18] MEDS ORDERED: GABA-488 PO (10:21)
[2017-09-18] MEDS ORDERED: AMLO2.5T PO (10:21)
[2017-09-18] MEDS ORDERED: AMLO5TAB4 PO (10:21)
[2017-09-25] MEDS ORDERED: PANT40TA2 PO (12:02)
== END 2017-11-05 | disposition home or self-care (01) ==
LOC: ONC 08:48
PROVIDERS: ATTEND Internal Medicine Hematology & Oncology
DX: C50.311 Malignant neoplasm of lower-inner quadrant of right female breast (principal); Z17.0 Estrogen receptor positive status [ER+]; Z79.899 Other long term (current) drug therapy
CPT/HCPCS: 36415; 80053; 85025; 99213

== ENCOUNTER → 2017-09-18 | Outpatient (CLI) | payer OTHER ==
[~2017-09-18] VITALS: Ht 177.8 cm; Wt 157.9 kg
[~2017-09-18] MED LIST changes: +AMLO2.5T PO; +AMLO5TAB4 PO; +GABA-488 PO; -GOSERELIN (ZOLADEX) 10.8 MG SYR SQ PRN; +LORA10TA76 PO; +OMEP20TA7 PO; +TAMO20TA2 PO
== END | disposition home or self-care (01) ==
LOC: PREOP 05:36
PROVIDERS: ATTEND Surgery
DX: Z01.818 Encounter for other preprocedural examination (principal)

== ENCOUNTER → 2017-09-25 | Day surgery (SDC) | payer OTHER ==
[~2017-09-25] VITALS: Ht 177.8 cm; Wt 157.9 kg
[~2017-09-25] MED LIST changes: +ACETAMINOPHEN 325 MG TABLET PO PRN; +HURRICAINE EXT TUBE (BENZOCAINE) ONE; +HURRICAINE EXT TUBE (BENZOCAINE) XX PRN; +HYDROcodone/APAP 5 MG/325 MG (LORTAB) TAB PO PRN; +LIDOCAINE JELLY 2% (XYLOCAINE) 5 ML TUBE MM PRN; +LIDOCAINE JELLY 2% (XYLOCAINE) 5 ML TUBE ONE; +MIDAZOLAM 2 MG/2 ML (VERSED) VIAL ONE; +NS IV 500 ML 500 ML IV SCH; +NS IV 500 ML 500 ML ONE; +ONDANSETRON 4 MG/2 ML (SDV) Z0FRAN IV PRN; +PANT40TA2 PO; +fentaNYL INJECTION 100 MCG/2 ML AMP ONE; +morphine INJ 10 MG/ML 1ML (SYR OR VIAL) IV PRN
[2017-09-25 10:05] VITALS: BP 150/93
--- OUTSIDE RECORDS SUMMARY | 2017-09-25 10:07 | XMS REPORT | Clinical Summary ---
Author Author [facility] Organization [facility] Address Unknown Phone Unavailable Care Team Providers Care Program Architect Name Role Phone Clarence West DO Unavailable Carisa Aleman PA-C Unavailable Sherif Wallace DO PCP Jh Irizarry MD Unavailable Mychart, Generic Provider Unavailable Unavailable Chuy Kidd RN Unavailable Unavailable Xenia Pugh RN Unavailable Unavailable Ellen Dykes RN Unavailable Unavailable Triny Early RN Unavailable Unavailable Source Comments Some departments are not documenting in the electronic medical record. If you do not see the information that you expected, contact Release of Information in the Health Information Management department at [phone] for further assistance in locating additional records.[facility] Allergies No Known Allergies Current Medications Prescription Sig. [...] (SENOKOT-S) 8.6/50 mg bedtime daily. 16 tablet tamoxifen (NOLVADEX) 20 Take 20 mg by mouth at Active mg tablet bedtime daily. lisinopril (PRINIVIL) 10 Take 10 mg by mouth Active mg tablet daily. amLODIPine (NORVASC) 10 Take 10 mg by mouth Active mg tablet daily. gabapentin (NEURONTIN) Take 300 mg by mouth at Active 300 mg capsule bedtime daily. GOSERELIN ACETATE Inject under the skin. 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 Martin is a female who presented to the [...] for imaging. Right breast sono-guided biopsy 01/18/15 ([place], [place]) revealed grade [address] chest/abdomen 01/18/15 ([place], [place]) revealed no evidence of metastasis. On the chest CT there was a 5.1 cm mass in the right breast that did not extend into the skin or muscle. There were no significantly enlarged lymph nodes in the axilla. The most prominent lymph node was an 8 mm infracarinal lymph node that was most likely reactive. Bone scan ([place], [place]) 01/21/15 revealed no evidence of metastasis. Ms. Martin underwent right RSL lumpectomy/SLNB/oncoplastic tissue rearrangement on 08/04/15. Final pathology revealed a 4 cm tumor bed with 3.1 cm residual tumor; 60% viable cancer cellularity; all margins at least 1 cm; LVI absent; 2 negative SLNs. She finished radiation therapy with Dr. Gale in 10/2015. She started Tamoxifen in 10/2015. BREAST IMAGING: Mammogram: -- Bilateral diagnostic mammogram 01/18/15 ([place], [place]) revealed a 6.2 cm lobulated mass in the right inferior and medial breast. There were no left breast abnormalities. -- Bilateral diagnostic mammogram 06/15/15 () revealed the known cancer in the deep right medial breast, measuring 3.1 cm. A clip was seen on the anterior aspect. No additional masses were seen. The left breast was unremarkable. -- Bilateral diagnostic mammogram 03/15/17 ([facility]) revealed scattered areas of fibroglandular density. There were post therapeutic changes seen. No masses, densities or calcifications to suggest malignancy. No change when compared to prior studies. Ultrasound: -- Right breast ultrasound 01/18/15 ([place], [place]) revealed a 4.5 cm hypoechoic mass with lobulated margins and internal vascularity at 4:30, 8-10 cm FTN. -- Right breast ultrasound 03/14/15 ([place], [place]) revealed a 3.9 cm hypoechoic mass at 4:30, 10 cm FTN compared to 4.5 cm previously. -- Right breast ultrasound 04/22/15 ([place], [place]) revealed a 3.2 cm mass at 4:30 compared to 3.9 cm previously. There was decreased vascularity with color Doppler. -- Right breast ultrasound 06/15/15 ([facility]) revealed the known cancer right breast 4:30, 10 cm FTN, currently measuring 2.4 cm. No additional masses were seen. Evaluation of the axilla showed no adenopathy. -- Right breast ultrasound 11/19/16 ([place], [place]) revealed a partial fluid collection that was stable in size measuring 2.5 x 1.1 cm at 4:00. Overall, there was slightly more echogenic material, likely representing resolving seroma and/or hematoma. There was no abnormal blood flow. The adjacent smaller seroma was no longer seen on this follow up study. BIRAD 3. 6 month follow up was recommended. REPRODUCTIVE HEALTH: Age at first Menarche: 14 [...] started 10/2015. REFERRED BY: Dr. Deidra Castellano Encounters Date Type Specialty Care Team Description 09/19/2017 Office Visit Oncology Clarence West DO Malignant neoplasm of Carisa Aleman PA-C lower-inner quadrant of right breast of female, estrogen receptor positive (HCC) (Primary Dx); Screening mammogram, encounter for 09/19/2017 Nurse Only Oncology Clarence West DO At risk for lymphedema Lee, Ольга Garza RN (Primary Dx) 08/09/2017 Ancillary Radiology Jeannine Hitchcock ARNP Postmenopausal; Orders Malignant neoplasm of lower-inner quadrant of right female breast, unspecified estrogen receptor status (HCC); Use of goserelin acetate (Zoladex) 07/22/2017 Hospital Lab Emerita Velez MD Polyp of cervix uteri Encounter 07/22/2017 Office Visit Obstetrics & Gynecology Emerita Velez MD Abnormal uterine bleeding (AUB) (Primary Dx); Cervical polyp 07/15/2017 Telephone Breast Clinic / Breast Clarence West DO Appointment Center 07/12/2017 Telephone Breast Clinic / Breast Clarence West DO General Question Center from Last 3 Months Family History Medical History Relation Name Comments Heart Attack Father Cancer-Colon Maternal 30s Grandmother Cancer Mother vulvar Cancer Paternal brain Grandfather Cancer Sister cervical Diabetes Neg Hx Stroke Neg Hx Relation Name Status Comments Father Alive Maternal Grandmother Mother Alive Paternal Grandfather Sister Social History Tobacco Use Types Packs/Day Years Used Date Never Smoker Smokeless Tobacco: Never Used Alcohol Use Drinks/Week oz/Week Comments No Sex Assigned at Date Recorded Not on file Last Filed Vital Signs Vital Sign Reading Time Taken Blood Pressure 134/80 09/19/2017 3:13 PM CDT Pulse 67 09/19/2017 3:13 PM CDT Temperature 36.5 C (97.7 F) 09/19/2017 3:13 PM CDT Respiratory Rate 18 09/19/2017 3:13 PM CDT Oxygen Saturation 98% 09/19/2017 3:13 PM CDT Inhaled Oxygen - - Concentration Weight 160.7 kg (354 lb 3.2 oz) 09/19/2017 3:13 PM CDT Height 176.8 cm (5' 9.61") 09/19/2017 3:13 PM CDT Body Mass Index 51.39 09/19/2017 3:13 PM CDT Plan of Treatment Health Maintenance Due Date Last Done Comments PHYSICAL (COMPREHENSIVE) 1973 EXAM PERTUSSIS VACCINE 1977 HIV SCREENING 1981 TETANUS VACCINE 10/07/1983 COLORECTAL CANCER 2016 SCREENING SHINGLES RECOMBINANT 2016 VACCINE (1 of 2) INFLUENZA VACCINE 12/30/2017 BREAST CANCER SCREENING 03/15/2018 03/15/2017, 06/15/2015 CERVICAL CANCER SCREENING 05/28/2020 05/28/2017 Implants Implanted Type Area Director Of Cath Lab Device Expiration Model / Identifier Date Serial / Lot Sealant Hstat Tisseel Frzn 4ml Right: SOTO:BIOSCI 06/29/2016 [id number] / Implanted: Qty: 1 on 08/04/2015 by Breast [id number] Clarence West DO 33 / [id number] Procedures Procedure Name Priority Date/Time Associated Diagnosis Comments SC BIOPSY CERVIX Routine 07/22/2017 Cervical polyp Results for this SINGLE/MULT/EXCISION OF 1:45 PM CDT procedure are in the [facility] results section. from Last 3 Months Results * SURGICAL PATHOLOGY (07/22/2017 5:06 PM) Component Value Ref Range PATHOLOGY REPORT [facility] [email or web address] [email or web address] Department of Pathology and Laboratory Medicine [address] [place] [address] Surgical Pathology Office:[phone]:[phone] SURGICAL PATHOLOGY REPORT NAME: CAROLINE MARTIN SURG PATH #: [id number] MR #: [id number] SPECIMEN CLASS: SR BILLING #: [id number] ALT ID #:LOCATION: OB DATE OF PROCEDURE: 07/22/2017 AGE:51 SEX: F DATE RECEIVED: 07/22/2017 : 1965TIME RECEIVED:17:06 PHYSICIAN: EMERITA VELEZ OBG DATE OF REPORT: 07/23/2017 COPY TO:DATE OF PRINTIN07/23/2017 ################################################## ###################### Final Diagnosis: A. Cervix, "cervical biopsy", biopsy: Endocervical polyp. Attestation: By this signature, I attest that I have personally formulated the final interpretation expressed in this report and that the above diagnosis is based upon my examination of the slides and/or other material indicated in this report. +++ +++ ksw/07/23/2017 ################################################## ###################### Material Received: A: cervical biopsy History: 51-year-old female with history of breast cancer on tamoxifen. Gross Description: A. Received in formalin labeled "cervical biopsy" is a 2.4 x 1.3 x 0.2 cm aggregate of bruce-yellow rubbery tissue fragments. The specimen is entirely submitted in cassette A1.(sld) /07/22/2017 Specimen Performing Laboratory [facility] RESULTS * ENDOMETRIAL/CERVICAL BIOPSY (07/22/2017 1:45 PM) Specimen Performing Laboratory IN CLINIC Narrative Emerita Velez MD 07/22/20172:43 PM In-Office Procedure Note Date of Procedure: 07/22/2017 Pre-operative Dx: cervical polyp Post-operative Dx: same Procedure: cervical polypectomy. Polyp removed with ring forcep without difficulty. Good hemostasis obtained Indications: cervical polyp Findings:1cm polyp no bleeding EBL:n/a IVF: n/a Specimen: cervical polyp from Last 3 Months
--- OUTSIDE RECORDS SUMMARY | 2017-09-25 10:07 | XMS REPORT | Encounter Summary ---
Author Author [facility] Organization [facility] Address Unknown Phone Unavailable Care Team Providers Care Transcripter Name Role Phone Clarence West DO Unavailable Carisa Aleman PA-C Unavailable Sherif Wallace DO PCP Jh Irizarry MD Unavailable Mychart, Generic Provider Unavailable Unavailable Chuy Kidd RN Unavailable Unavailable Xenia Pugh RN Unavailable Unavailable Ellen Dykes RN Unavailable Unavailable Triny Early RN Unavailable Unavailable Reason for Visit * Reason Comments Heme/Onc Care Encounter Details Date Type Department Care Team Description 09/19/2017 Office Visit [facility] Clarence West DO Malignant neoplasm of Cancer Center - IC Exam [address] lower-inner quadrant of [address] [place] [address] right breast of female, [place] [address] [place] [address] estrogen receptor [phone] positive (HCC) (Primary Dx); M Screening mammogram, Carisa vergara PA-C encounter for [address] [place] [address] [phone] Social History Tobacco Use Types Packs/Day Years Used Date Never Smoker Smokeless Tobacco: Never Used Alcohol Use Drinks/Week oz/Week Comments No Sex Assigned at Date Recorded Not on file as of this encounter Last Filed Vital Signs Vital Sign Reading [...] Mass Index 51.39 09/19/2017 3:13 PM CDT in this encounter Functional Status Functional Status Response Date of Assessment Does the patient have a hearing impairment: No 09/19/2017 Does the patient have a visual impairment: No 09/19/2017 Does the patient have impaired ambulation: No 09/19/2017 Does the patient have an activity of daily living No 09/19/2017 (ADL) impairment: Does the patient have an instrumental activity of No 09/19/2017 daily living (IADL) impairment: Cognitive Status Response Date of Assessment Does the patient have a cognitive impairment: No 09/19/2017 as of this encounter Progress Notes * Carisa Aleman PA-C - 09/19/2017 3:30 PM CDT Formatting of this note may be different from the original. Name: Caroline Cheng : 1965 AGE: 51 y.o. 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 Cheng returns to the clinic for routine 2 year follow up. HISTORY: Ms. Cheng is a female who [...] her for imaging. Right breast sono-guided biopsy ([place], [place]) revealed grade [address] chest/abdomen 01/18/15 ([place], [place]) revealed no evidence of metastasis. On the chest CT there was a 5.1 cm mass in the right breast that did not extend into the skin or muscle. There were no significantly enlarged lymph nodes in the axilla. The most prominent lymph node was an 8 mm infracarinal lymph node that was most likely reactive. Bone scan ([place], [place]) 01/21/15 revealed no evidence of metastasis. Ms. Cheng underwent right RSL lumpectomy/SLNB/oncoplastic tissue rearrangement on 08/04/15. Final pathology revealed a 4 cm tumor bed with 3.1 cm residual tumor; 60% viable cancer cellularity; all margins at least 1 cm; LVI absent; 2 negative SLNs. She finished radiation therapy with Dr. Gale in 2015. She started Tamoxifen in 10/2015. BREAST IMAGING: Mammogram: -- Bilateral diagnostic mammogram 01/18/15 ([place], [place]) revealed a 6.2 cm lobulated mass in the right inferior and medial breast. There were no left breast abnormalities. -- Bilateral diagnostic mammogram 06/15/15 () revealed the known cancer in the deep right medial breast, measuring 3.1 cm. A clip was seen on the anterior aspect. No additional masses were seen. The left breast was unremarkable. -- Bilateral diagnostic mammogram 03/15/17 () revealed scattered areas of fibroglandular density. There were post therapeutic changes seen. No masses, densities or calcifications to suggest malignancy. No change when compared to prior studies. Ultrasound: -- Right breast ultrasound 01/18/15 ([place], [place]) revealed a 4.5 cm hypoechoic mass with lobulated margins and internal vascularity at 4:30, 8-10 cm FTN. -- Right breast ultrasound 03/14/15 ([place], [place]) revealed a 3.9 cm hypoechoic mass at 4:30, 10 cm FTN compared to 4.5 cm previously. -- Right breast ultrasound 04/22/15 ([place], [place]) revealed a 3.2 cm mass at 4: 30 compared to 3.9 cm previously. There was decreased vascularity with color Doppler. -- Right breast ultrasound 06/15/15 () revealed the known cancer right breast 4 :30, 10 cm FTN, currently measuring 2.4 cm. No additional masses were seen. Evaluation of the axilla showed no adenopathy. -- Right breast ultrasound 11/19/16 ([place], [place]) revealed a partial fluid collection that [...] started 10/2015. REFERRED BY: Dr. Deidra Castellano Review of Systems Review of 13 systems negative except for: arthralgia No Known Allergies The following medical/surgical/family/social history and the list of medications are current, as of 09/19/2017 Past Medical History: Diagnosis Date Borderline systolic HTN HLD (hyperlipidemia) Hypertension Hypothyroid Malignant neoplasm of lower-inner quadrant of right female breast (HCC) 2014 RIGHT BREAST Past Surgical History: Procedure Laterality Date ANKLE SURGERY Right 1986 BREAST REDUCTION 1997 TX REDUCTION MAMMAPLASTY Bilateral 08/04/2015 Oncoplastic reduction-local tissue rearrangement and symmetry procedure for symmetry Case length=2.5 hours performed by Jh Irizarry MD at [facility] MAIN OR/ PERIOP BREAST LUMPECTOMY Right 08/04/2015 Right Radioactive Seed Localized Lumpectomy, [place] Lymph Node Biopsy performed by Clarence West DO at [facility] MAIN OR/PERIOP PORTACATH PLACEMENT Family History Problem Relation Age of Onset Cancer Mother 71 vulvar Heart Attack Father Cancer-Colon Maternal Grandmother 30s Cancer Sister 41 cervical Cancer Paternal Grandfather brain Stroke Neg Hx Diabetes Neg Hx Social History Social History Marital status: Spouse name: N/A Number of children: N/A Years of education: N/A Social History Main Topics Smoking status: Never Smoker Smokeless tobacco: Never Used Alcohol use No Drug use: No Sexual activity: Not on file Other Topics Concern Not on file Social History Narrative No narrative on file Objective: amLODIPine (NORVASC) 10 mg tablet Take 10 mg by mouth daily. furosemide (LASIX) 40 mg tablet Take 40 mg by mouth daily. gabapentin (NEURONTIN) 300 mg capsule Take 300 mg by mouth at bedtime daily. GOSERELIN ACETATE (ZOLADEX SC) Inject under the skin. lisinopril (PRINIVIL) 10 mg tablet Take 10 mg by mouth daily. LORATADINE (CLARITIN PO) Take 10 mg by mouth daily as needed (allergic rhinnitis). OMEPRAZOLE (PRILOSEC PO) Take 20 mg by mouth daily. senna/docusate (SENOKOT-S) 8.6/50 mg tablet Take 1 Tab by mouth at bedtime daily. tamoxifen (NOLVADEX) 20 mg tablet Take 20 mg by mouth at bedtime daily. Vitals: 09/19/17 1513 BP: 134/80 Pulse: 67 Resp: 18 Temp: 36.5 C (97.7 F) TempSrc: Oral SpO2: 98% Weight: (!) 160.7 kg (354 lb 3.2 oz) Height: 176.8 cm (69.61") Body mass index is 51.39 kg/m. Pain Score: Zero Pain Addressed: N/A Patient Evaluated for a Clinical Trial: No treatment clinical trial available for this patient. Eastern Cooperative Oncology Group performance status is 0, Fully active, able to carry on all pre-disease performance without restriction.. Physical Exam Pulmonary/Chest: Vitals reviewed. RIGHT BREAST EXAM: Breast: Exam consistent with mastopexy/lumpectomy/SLNB. No palpable masses Skin Erythema: No Attachment of Overlying Skin: No Peau d' orange: No Chest Wall Attachment: No Nipple Inversion: No Nipple Discharge: No LEFT BREAST EXAM: Breast: Exam consistent with mastopexy. No palpable masses Skin Erythema: No Attachment of Overlying Skin: No Peau d' orange: No Chest Wall Attachment: No Nipple Inversion: No Nipple Discharge: No RIGHT SHANDA BASIN EXAM: Axillary: negative Infraclavicular: negative Supraclavicular: negative LEFT SHANDA BASIN EXAM: Axillary: negative Infraclavicular: negative Supraclavicular: negative Constitutional: No acute distress. HEENT: Head: Normocephalic and atraumatic. Eyes: No discharge. No scleral icterus. Pulmonary/Chest: No respiratory distress. Neurological: Alert and oriented to person, place and time. No cranial nerve deficit. Skin: Warm and dry. No rash noted. No erythema. No pallor. Psychiatric: Normal mood and affect. Behavior is normal. Judgement and thought content normal. 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 Cheng reports she is doing well. She denies any changes in her medical or family history. She has no breast complaints. She reports about a month ago she wasn't feeling well and had a menstrual cycle. She has not had one since 2014. Her last zoladex injection was this winter and she saw Dr. Hoover for gynecology in June and had a polyp removed. I recommended she call Dr. Castellano's office and just let them know as he is considering switching her to arimidex. She is scheduled for a colonoscopy next week. Ms. Cheng was evaluated in the Lymphedema Clinic today and had no evidence of arm lymphedema. Ms. Cheng is due for her screening mammogram in March 2018. She will see Dr. West at that time for clinical exam. She was given ample time to ask questions all of which were answered to her satisfaction. She was encouraged to call with any interval questions or concerns. 1. Continue follow up with Dr. Castellano 2. Continue follow up with Lymphedema Clinic 3. Follow up with Dr. West in 6 months with bilateral screening mammogram Carisa Aleman PA-C in this encounter Plan of Treatment Name Priority Associated Diagnoses Order Schedule MAMMO SCREEN BILAT/ZIGGY/CAD Routine Screening mammogram, Expected: 03/21 encounter for (Approximate), Expires: 03/21/2019 as of this encounter Visit Diagnoses Diagnosis Malignant neoplasm of lower-inner quadrant of right breast of female, estrogen receptor positive (HCC) - Primary Screening mammogram, encounter for
--- OUTSIDE RECORDS SUMMARY | 2017-09-25 10:07 | XMS REPORT | Encounter Summary ---
Author Author [facility] Organization [facility] Address Unknown Phone Unavailable Care Team Providers Care Counselor Nurses' Association Name Role Phone Clarence West DO Unavailable Carisa Aleman PA-C Unavailable Sherif Wallace DO PCP Jh Irizarry MD Unavailable Mychart, Generic Provider Unavailable Unavailable Chuy Kidd RN Unavailable Unavailable Xenia Pugh RN Unavailable Unavailable Ellen Dykes RN Unavailable Unavailable Triny Early RN Unavailable Unavailable Reason for Visit * Reason Comments Heme/Onc Care Encounter Details Date Type Department Care Team Description 09/19/2017 Nurse Only [facility] Clarence West DO At risk for lymphedema Cancer Center - IC Exam [address] (Primary Dx) [address] [place] [address] [place] [address] [phone] Ольга Smith RN Social History Tobacco Use Types Packs/Day Years Used Date Never Smoker Smokeless Tobacco: Never Used Alcohol Use Drinks/Week oz/Week Comments No Sex Assigned at Date Recorded Not on file as of this encounter Functional Status Functional Status Response [...] as of this encounter Progress Notes * Ольга Lee RN - 09/19/2017 2:40 PM CDT Formatting of this note may be different from the original. LYMPHEDEMA [id number] DATE: 09/19/17 PATIENT NAME: Caroline Cheng DATE OF : 1965 Follow-Up Visit: 24 months Patient Completed Questionnaire?: No Lymphedema Diagnosis?: No LYMPHEDEMA INSTRUMENT: PATIENT POPULATION: Diagnosed with and treated for cancer at [facility]? Yes Referred to [facility] after outside cancer treatment? No Referred to [facility] for lymphedema management? No DIAGNOSTIC DEFINITION OF LYMPHEDEMA: Other: IMPACT OF LE ON ADL: CHANGES IN BMI (UPON LE DIAGNOSIS): decrease CHANGES IN ACTIVITY (CHECK ALL THAT APPLY): Other LN Dissection, Segmental Mastectomy and SLN Mapping RECENT INFECTIONS?: No TYPE OF INFECTION(S): none CHANGE IN PRESCRIBED MEDICATION?: no USE OF COMPRESSION SLEEVE: No FOLLOW-UP MEASUREMENTS: Handedness: right handed Circumferential Measurements Perometer Measurements Bioimpedance Analysis RUE/LUE: Left (ml): N/A 7.4 (-3.4) Hand: 19.5/19.3 Right (ml): N/A Wrist: 17.1/17.5 Difference (ml): 8 cm: 26.2/25.5 16 cm: 32.5/33.1 Elbow cm: 32.2/33.8 8 cm: 40.5/46 16 cm: 47/52 24 cm: 52.5/53.2 BMI:51.4 Notes Reviewed checklist with patient regarding any recent changes in health history, infections, medications, or general concerns as it relates to lymphedema. Reinforced and verified adherence to precautions from initial visit. No concerns or questions. Discussed current activity level. Has returned to previous activity level without concern. Reviewed early signs and symptoms of lymphedema in affected arm. None indicated. Verified patient is aware of the early signs and symptoms to watch for as well as when to contact us. Assessment: L-dex: WNL Measurements: no significant change (>2cm baseline) ROM: WNL Discussed assessment with patient. No change in assessment to indicate presence of lymphedema. Lymphedema Stage: Not applicable, no indication of lymphedema. Recommendations: Continue with precautions, meticulous skin care, weight management as well as active healthy lifestyle. Verified no referrals indicated at this time for any issues or concerns. Plan: Return to clinic for routine visits based upon scheduled plan of 4,8,12, 18,24, then annual visits. Verified patient has contact information should any questions or concerns arise. Follow up appointment for lymphedema prevention clinic will be scheduled by patients breast surgeons team. in this encounter Plan of Treatment Name Priority Associated Diagnoses Order Schedule PERFORM L-DEX Routine At risk for lymphedema Ordered: 09/19/2017 as of this encounter Visit Diagnoses Diagnosis At risk for lymphedema - Primary Other specified conditions influencing health status
--- OUTSIDE RECORDS SUMMARY | 2017-09-25 10:08 | XMS REPORT | Encounter Summary ---
Author Author [facility] Organization [facility] Address Unknown Phone Unavailable Care Team Providers Care Clam Digger Name Role Phone Clarence West DO Unavailable Carisa Aleman PA-C Unavailable Sherif Wallace DO PCP Jh Irizarry MD Unavailable Mychart, Generic Provider Unavailable Unavailable Chuy Kidd RN Unavailable Unavailable Xenia Pugh RN Unavailable Unavailable Ellen Dykes RN Unavailable Unavailable Triny Early RN Unavailable Unavailable Encounter Details Date Type Department Care Team Description 07/22/2017 [facility] Emerita Velez MD Polyp of cervix uteri Encounter [address] [facility]. [address] [place] [address] [address] [place] [address] [phone] Social History Tobacco Use Types Packs/Day Years Used Date Never Smoker Smokeless Tobacco: Never Used Alcohol Use Drinks/Week oz/Week Comments No Sex Assigned at Date Recorded Not on file as of this encounter Functional Status Functional Status Response Date of Assessment Does the patient have a hearing impairment: No 03/15/2017 Does the patient have a visual impairment: No 03/15/2017 Does the patient have impaired ambulation: No 03/15/2017 Does the patient have an activity of daily living No 03/15/2017 (ADL) impairment: Does the patient have an instrumental activity of No 03/15/2017 daily living (IADL) impairment: Cognitive Status Response Date of Assessment Does the patient have a cognitive impairment: No 03/15/2017 as of this encounter Medications at Time of Discharge Medication Sig. Disp. Refills Start Date End Date amLODIPine (NORVASC) 10 Take 10 mg by mouth mg tablet daily. furosemide (LASIX) 40 mg Take 40 mg by mouth tablet daily. gabapentin (NEURONTIN) Take 300 mg by mouth at 300 mg capsule bedtime daily. GOSERELIN ACETATE Inject under the skin. (ZOLADEX SC) lisinopril (PRINIVIL) 10 Take 10 mg by mouth mg tablet daily. LORATADINE (CLARITIN PO) Take 10 mg by mouth daily as needed (allergic rhinnitis). OMEPRAZOLE (PRILOSEC PO) Take 20 mg by mouth daily. senna/docusate Take 1 Tab by mouth at 30 Tab 1 08/05/2015 (SENOKOT-S) 8.6/50 mg bedtime daily. tablet tamoxifen (NOLVADEX) 20 Take 20 mg by mouth at mg tablet bedtime daily. as of this encounter Plan of Treatment Not on fileas of this encounter Results * SURGICAL PATHOLOGY (07/22/2017 5:06 PM) Component Value Ref Range PATHOLOGY REPORT [email or web address] Department of Pathology and Laboratory Medicine [address] [place] [address] Surgical Pathology Office:[phone]:[phone] SURGICAL PATHOLOGY REPORT NAME: CAROLINE MARTIN SURG PATH #: [id number] MR #: [id number] SPECIMEN CLASS: SR BILLING #: [id number] ALT ID #:LOCATION: [facility] DATE OF PROCEDURE: 07/22/2017 AGE:51 SEX: F DATE RECEIVED: 07/22/2017 : 1965TIME RECEIVED:17:06 PHYSICIAN: EMERITA VELEZ OBJama DATE OF REPORT: 07/23/2017 COPY TO:DATE OF [...] specimen is entirely submitted in cassette A1.(sld) 07/22/2017 Specimen Performing Laboratory [facility] RESULTS in this encounter Visit Diagnoses Not on filein this encounter Admitting Diagnoses Diagnosis Polyp of cervix uteri
--- OUTSIDE RECORDS SUMMARY | 2017-09-25 10:08 | XMS REPORT | Encounter Summary ---
Author Author [facility] Organization [facility] Address Unknown Phone Unavailable Care Team Providers Care Er Tech Name Role Phone Clarence West DO Unavailable Carisa Aleman PA-C Unavailable Sherfi Wallace DO PCP Jh Irizarry MD Unavailable Mychart, Generic Provider Unavailable Unavailable Chuy Kidd RN Unavailable Unavailable Xenia Pugh RN Unavailable Unavailable Ellen Dykes RN Unavailable Unavailable Triny Early RN Unavailable Unavailable Reason for Visit * Reason Comments Pelvic Pain Cervical Polyp * Consult, Test & Treat (Routine) Status Reason Specialty Diagnoses / Referred By Referred To Procedures Contact Contact No Auth Needed Specialty Gynecology / Diagnoses Clarence West Reddy, Madhuri G, Services Obstetrics & Cervical polyp DO MD Required Gynecology N84.1 [address] (ICD-10-CM) - BLVD [address] Cervical polyp [address] [place] [address] Phone: Encounter Details Date Type Department Care Team Description 07/22/2017 Office Visit [facility] Sabi Hoover MD Abnormal uterine bleeding Physicians - OBGYN [address] (AUB) (Primary Dx); [address] [place] [address] [place] [address] [phone] Social History Tobacco Use Types Packs/Day Years Used Date Never Smoker Smokeless Tobacco: Never Used Alcohol Use Drinks/Week oz/Week Comments No Sex Assigned at Date Recorded Not on file as of this encounter Last Filed Vital Signs Vital Sign Reading Time Taken Blood Pressure 170/89 07/22/2017 2:11 PM CDT Pulse 100 07/22/2017 2:11 PM CDT Temperature - - Respiratory Rate - - Oxygen Saturation - - Inhaled Oxygen - - Concentration Weight 157.4 kg (347 lb) 07/22/2017 2:11 PM CDT Height 176.8 cm (5' 9.61") 07/22/2017 2:11 PM CDT Body Mass Index 50.35 07/22/2017 2:11 PM CDT in this encounter Functional Status [...] impairment: No 03/15/2017 as of this encounter Progress Notes * Sabi Hoover MD - 07/22/2017 1:45 PM CDT Formatting of this note may be different from the original. Date of Service: 07/22/2017 Subjective: Caroline Cheng is a 51 y.o. female. History of Present Illness Pt here for follow up from visit in 05/[address] pastrana for cervical polyp. Would like to know if thsi can be removed in office. Pt would like to avoid surgery if possible. Denies any vaginal bleeding On tamoxifen for breast cancer. Was told by oncologist to have case aide evaluaion and pap smear. This was done in 05/2017 and was normal Past Medical History: Diagnosis Date Borderline systolic HTN HLD (hyperlipidemia) Hypertension Hypothyroid Malignant neoplasm of lower-inner quadrant of right female breast (HCC) 2014 RIGHT BREAST Past Surgical History: Procedure Laterality Date ANKLE SURGERY Right 1986 BREAST REDUCTION 1997 [place] REDUCTION MAMMAPLASTY Bilateral 08/04/2015 Oncoplastic reduction-local tissue rearrangement and symmetry procedure for symmetry Case length=2.5 hours performed by Jh Irizarry MD at [facility] MAIN OR/ PERIOP BREAST LUMPECTOMY Right 08/04/2015 Right Radioactive Seed Localized Lumpectomy, Ethel Lymph Node Biopsy performed by Clarence West DO at [facility] MAIN OR/PERIOP PORTACATH PLACEMENT Social History Substance Use Topics Smoking status: Never Smoker Smokeless tobacco: Never Used Alcohol use No Family History Problem Relation Age of Onset Cancer Mother 71 vulvar Heart Attack Father Cancer-Colon Maternal Grandmother 30s Cancer Sister 41 cervical Cancer Paternal Grandfather brain Stroke Neg Hx Diabetes Neg Hx Review of Systems Constitutional: Negative. Negative for fatigue, fever and unexpected weight change. HENT: Negative. Eyes: Negative. Respiratory: Negative. Negative for cough and shortness of breath. Cardiovascular: Negative. Negative for chest pain and leg swelling. Gastrointestinal: Negative. Negative for abdominal pain, blood in stool, constipation, diarrhea, nausea and vomiting. Endocrine: Negative. Genitourinary: Negative. Negative for difficulty urinating, dyspareunia, dysuria, enuresis, frequency, genital sores, hematuria, menstrual problem, pelvic pain, urgency, vaginal bleeding, vaginal discharge and vaginal pain. Musculoskeletal: Negative. Negative for arthralgias and back pain. Skin: Negative. Allergic/Immunologic: Negative. Neurological: Negative. Negative for light-headedness and headaches. Hematological: Negative. Negative for adenopathy. Does not bruise/bleed easily. Psychiatric/Behavioral: Negative. Negative for confusion. The patient is not nervous/anxious. All other systems reviewed and are negative. Objective: amLODIPine (NORVASC) 10 mg tablet Take [...] mg by mouth at bedtime daily. Vitals: 07/22/17 1411 BP: 170/89 Pulse: 100 Weight: (!) 157.4 kg (347 lb) Height: 176.8 cm (69.61") Body mass index is 50.35 kg/m. Physical Exam Constitutional: She is oriented to person, place, and time. She appears well- developed. No distress. HENT: Head: Normocephalic. Cardiovascular: Normal rate. Pulmonary/Chest: Effort normal. Abdominal: Soft. There is no tenderness. Genitourinary: Vagina normal and uterus normal. There is no lesion on the right labia. There is no lesion on the left labia. Cervix exhibits no motion tenderness and no discharge. Right adnexum displays no mass and no tenderness. Left adnexum displays no mass and no tenderness. Neurological: She is alert and oriented to person, place, and time. Skin: Skin is warm. Psychiatric: She has a normal mood and affect. Her behavior is normal. Assessment and Plan: PT is a 51 y.o.. No obstetric history on file. Cervical Polyp: removed today in office. No bleeding otherwise noted. Exam normal Pap done recently and normal Would not get US unless she has PMB. in this encounter Procedure Notes * Sabi Hoover MD - 07/22/2017 1:45 PM CDT Associated Order(s): ENDOMETRIAL/CERVICAL BIOPSY Procedure(s): WA BIOPSY CERVIX SINGLE/MULT/EXCISION OF LESION SPX Pre-Procedure Diagnose(s): Cervical polyp In-Office Procedure Note Date of Procedure: 07/22/2017 Pre-operative Dx: cervical polyp Post-operative Dx: same Procedure: cervical polypectomy. Polyp removed with ring forcep without difficulty. Good hemostasis obtained Indications: cervical polyp Findings:1cm polyp no bleeding EBL: n/a IVF: n/a Specimen: cervical polyp in this encounter Plan of Treatment Name Priority Associated Diagnoses Order Schedule PATHOLOGY SURGICAL < 5 SPECIMENS Routine Cervical polyp ONE TIME starting 07/22/2017 as of this encounter Procedures Procedure Name Priority Date/Time Associated Diagnosis Comments WA BIOPSY CERVIX Routine 07/22/2017 Cervical polyp Results for this SINGLE/MULT/EXCISION OF 1:45 PM CDT procedure are in the LESION SPX results section. in this encounter Results * ENDOMETRIAL/CERVICAL BIOPSY (07/22/2017 1:45 PM) Specimen Performing Laboratory IN CLINIC Narrative Sabi Hoover MD 07/22/20172:43 PM In-Office Procedure Note Date of Procedure: 07/22/2017 Pre-operative Dx: cervical polyp Post-operative Dx: same Procedure: cervical polypectomy. Polyp removed with ring forcep without difficulty. Good hemostasis obtained Indications: cervical polyp Findings:1cm polyp no bleeding EBL:n/a IVF: n/a Specimen: cervical polyp in this encounter Visit Diagnoses Diagnosis Abnormal uterine bleeding (AUB) - Primary Cervical polyp Mucous polyp of cervix
--- OUTSIDE RECORDS SUMMARY | 2017-09-25 10:08 | XMS REPORT | Encounter Summary ---
Author Author [facility] Organization [facility] Address Unknown Phone Unavailable Care Team Providers Care Advisory Application Developer Name Role Phone Brett Clarence DO Unavailable Carisa Aleman PA-C Unavailable Sherif Wallace DO PCP Jh Irizarry MD Unavailable Mychart, Generic Provider Unavailable Unavailable Chuy Kidd RN Unavailable Unavailable Xenia Pugh RN Unavailable Unavailable Ellen Dykes RN Unavailable Unavailable Triny Early RN Unavailable Unavailable Reason for Visit * Reason Comments General Question Encounter Details Date Type Department Care Team Description 07/12/2017 Telephone [facility] Clarence West DO General Question [place] [address] [place] [address] [place] [address] [phone] Social History Tobacco Use Types Packs/Day Years [...] impairment: No 03/15/2017 as of this encounter Miscellaneous Notes * Telephone Encounter - Ely Aleman RN - 07/12/2017 4:09 PM CDT Patient calls with concerns about scheduling surgery with gynecology. Will further discuss with Dr. West to get recommendation for patient. Patient verbalizes understanding. All questions answered. Patient given contact information for additional questions or concerns. in this encounter Plan of Treatment Not on fileas of this encounter Visit Diagnoses Not on filein this encounter
--- OUTSIDE RECORDS SUMMARY | 2017-09-25 10:08 | XMS REPORT | Encounter Summary ---
Author Author [facility] Organization [facility] Address Unknown Phone Unavailable Care Team Providers Care Director Of Retention Name Role Phone WestClarence DO Unavailable Carisa Aleman PA-C Unavailable Sherif Wallace DO PCP Jh Irizarry MD Unavailable Mychart, Generic Provider Unavailable Unavailable Chuy Kidd RN Unavailable Unavailable Xenia Pugh RN Unavailable Unavailable Ellen Dykes RN Unavailable Unavailable Triny Early RN Unavailable Unavailable Reason for Referral * Radiology Services Status Reason Specialty Diagnoses / Referred By Referred To Procedures Contact Contact New Request Radiology Diagnoses Jeannine Hitchccok, Postmenopausal DERMATOLOGY PHYSICIAN Malignant [facility] neoplasm of [place], [place] lower-inner [address] quadrant of Phone: right female [phone] breast, Fax: unspecified [phone] estrogen receptor status (HCC) Use of goserelin acetate (Zoladex) P rocedures BONE DENSITY SPINE/HIP Encounter Details Date Type Department Care Team Description 08/09/2017 Ancillary Rad Jeannine Hitchcock, NELSON Postmenopausal; Orders [address] [facility] [place] [address] [place] [address] lower-inner quadrant of [phone] right female breast, unspecified estrogen receptor status (HCC); Use of goserelin acetate (Zoladex) Social History Tobacco Use Types Packs/Day Years [...] impairment: No 03/15/2017 as of this encounter Plan of Treatment Name Priority Associated Diagnoses Order Schedule BONE DENSITY SPINE/HIP Routine Postmenopausal Expected: 08/09/2017 Malignant neoplasm of (Approximate), Expires: lower-inner quadrant of 08/09/2018 right female breast, unspecified estrogen receptor status (HCC) Use of goserelin acetate (Zoladex) as of this encounter Visit Diagnoses Diagnosis Postmenopausal Asymptomatic postmenopausal status (age-related) (natural) Malignant neoplasm of lower-inner quadrant of right female breast, unspecified estrogen receptor status (HCC) Use of goserelin acetate (Zoladex) Use of other agents affecting estrogen receptors and estrogen levels
--- OUTSIDE RECORDS SUMMARY | 2017-09-25 10:08 | XMS REPORT | Encounter Summary ---
Author Author [facility] Organization [facility] Address Unknown Phone Unavailable Care Team Providers Care Satellite Dish Technician Name Role Phone Clarence West DO Unavailable Carisa Aleman PA-C Unavailable Sherif Wallace DO PCP Jh Irizarry MD Unavailable Mychart, Generic Provider Unavailable Unavailable Chuy Kidd RN Unavailable Unavailable Xenia Pugh RN Unavailable Unavailable Ellen Dykes RN Unavailable Unavailable Triny Early RN Unavailable Unavailable Reason for Referral * Consult, Test & Treat (Routine) Status Reason Specialty Diagnoses / Referred By Referred To Procedures Contact Contact No Auth Needed Specialty Gynecology / Diagnoses Clarence West Reddy, Madhuri G, Services Obstetrics & Cervical polyp DO Required Gynecology N84.1 [address] (ICD-10-CM) - [address]VD [address] Cervical polyp [address] [place] [address] Phone: Reason for Visit * Reason Comments Appointment Encounter Details Date Type Department Care Team Description 07/15/2017 Telephone [facility] at Clarence West DO Appointment [place] [address] [place] [address] [place] [address] [phone] Social History Tobacco Use Types Packs/Day Years [...] Telephone Encounter - Ely Aleman RN - 07/15/2017 3:47 PM CDT Called patient with referral information to Dr. Hoover on 07/22/17 at 1325 at the [facility]. Patient agrees. Patient verbalizes understanding. All questions answered. Patient given contact information for additional questions or concerns. in this encounter Plan of Treatment Name Priority Associated Diagnoses Order Schedule AMB REFERRAL TO GYNECOLOGY Routine Cervical polyp Ordered: 07/15/2017 as of this encounter Visit Diagnoses Diagnosis Cervical polyp - Primary Mucous polyp of cervix
--- NOTE | 2017-09-25 10:09 | Progress Note-Pre Operative ---
Pre-Operative Progress Note H&P Reviewed The H&P was reviewed, patient examined and no changes noted. Date Seen by Provider: Sep 25, 2017 Time Seen by Provider: 10:05 Date H&P Reviewed: Sep 25, 2017 Time H&P Reviewed: 10:05 Pre-Operative Diagnosis: GERD, screening colonoscopy HERACLIO BRADFORD MD Sep 25, 2017 10:09 am
--- NOTE | 2017-09-25 10:09 | Conscious Sedation/ASA ---
Conscious Sedation Pre-Proced Time Reviewed: 10:05 ASA Class: 2 Airway Mallampati Classification: ([place] appropriate class) I. II. III, IV Lungs Heart ASA score ASA 1: a normal healthy patient ASA 2: a patient with a mild systemic disease (mid diabetes, controlled hypertension, obesity ASA 3: a patient with a severe systemic disease that limits activity (angina , COPD, prior Myocardial infarction) ASA 4: a patient with an incapacitating disease that is a constant threat to life (CHF, renal failure) ASA 5: a moribund patient not expected to survive 24 hrs. (ruptured aneurysm) ASA 6: a declared brain patient whose organs are being harvested. For emergent operations, add the letter E after the classification Grade 3 Sedation Plan: Analgesia, Amnesia, Plan communicated to team members, Discussed options with patient/fam, Discussed risks with patient/fam Note The patient is an appropriate candidate to undergo the planned procedure, sedation, and anesthesia. The patient immediately re-assessed prior to indication. HERACLIO BRADFORD MD Sep 25, 2017 10:09 am
[2017-09-25] MEDS: MIDAZOLAM 2 MG/2 ML (VERSED) VIAL IVP PRN ×6 (11:09→11:36)
[2017-09-25] MEDS: fentaNYL INJECTION 100 MCG/2 ML AMP IVP PRN ×2 (11:12→11:29)
--- NOTE | 2017-09-25 12:00 | Progress Note-Post Operative ---
Post-Operative Progess Note Surgeon (s)/Rag Collector (s) Surgeon HERACLIO BRADFORD MD Rag Collector: none Pre-Operative Diagnosis GERD, screening colonoscopy Post-Operative Diagnosis reflux esophagitis(class B), small HH(1cm), mild-moderate gastritis. chronic stage 2 ext and int hemorrhoids, small rectosigmoid polyp(2mm). Procedure & Operative Findings Date of Procedure 09/25/17 Procedure Performed/Findings CS Anesthesia Type CS Estimated Blood Loss Estimated blood loss (mL): minimal Specimens/Packing Specimens Removed GE jxn, antrum, rectosigmoid polyp. HERACLIO BRADFORD MD Sep 25, 2017 12:00 pm
--- NOTE | 2017-09-25 12:03 | Discharge Inst-Surgical ---
D/C Lap Instructions-KIDO New, Converted, or Re-Newed RX: RX on Chart Follow Up PRN Activity as tolerated High Fiber Diet 25g or more per day Avoid Alcohol, Caffeine, Spicy [place] and Acid foods. Drink 64 fluid oz or more of fluids per day. Symptoms to Report: Fever over 101 degree F, Nausea/Vomiting If any problems/questions: Contact your physician or go to Emergency Room HERACLIO BRADFORD MD Sep 25, 2017 12:03 pm
[2017-09-25 12:05] VITALS: BP 138/82
[2017-09-25 12:35] VITALS: BP 140/87
[2017-09-25 12:50] VITALS: BP 140/87
--- NOTE | 2017-09-25 17:43 | OPERATIVE REPORT ---
DATE OF SERVICE: 09/25/2017 ATTENDING PRIMARY CARE PHYSICIAN: Dr. Wallace. PREOPERATIVE DIAGNOSES: History of breast cancer, gastroesophageal reflux disease, screening colonoscopy. POSTOPERATIVE DIAGNOSES: Reflux esophagitis class B, small hiatal hernia approximately 1 cm in size, mild to moderate gastritis. Chronic stage II external and internal hemorrhoids, small polyp of the rectosigmoid junction approximately 2 mm in size. PROCEDURE: EGD with biopsy, colonoscopy with biopsy. SURGEON: Dr. Heraclio Bradford. ANESTHESIA: Conscious sedation. ESTIMATED BLOOD LOSS: Minimal. FINDINGS: EGD, reflux esophagitis class B, small hiatal hernia approximately 1 to 1.5 cm in size, mild to moderate gastritis. Pylorus and duodenum appeared normal. Colonoscopy, chronic stage II external and internal hemorrhoids, small polyp of the rectosigmoid junction approximately 2 mm in size. Remainder of the colon was normal. DISPOSITION: The patient tolerated the procedure well. The patient is a 51-year-old female known to us. She has a history of a breast lesion of the lower aspect of the previous breast reduction surgery. This was performed on 01/21/2015 and did come back as an invasive ductal breast cancer. She underwent a right breast lumpectomy and reconstruction as well as left breast reduction 07/2015 at [facility]. We had placed a Groshong catheter for chemotherapy and this was also removed. She reports that since chemotherapy and radiation, she has developed reflux which has worsened and also progressed to a chronic cough. She has been on Prilosec and states that this initially helped; however, has become less effective over time. She is also in need of a screening colonoscopy for she has not had one done before in the past. She does not report any issues with diarrhea nor constipation as well as no red blood per rectum nor any dark tarry stools. The patient was brought to the endoscopy suite, laid in the left lateral decubitus position. After adequate IV pain and sedating medications and conscious sedation anesthesia, a digital rectal examination was performed. The mouthpiece was applied. The endoscope was then placed in the mouth visualizing the pharynx and hypopharyngeal region. Vocal cords, epiglottis and vallecula identified and appeared to be normal. The endoscope was then gently intubated in the esophageal opening and esophagus insufflated. The endoscope was then advanced to the first, second and third portion of the esophagus at the level of the GE junction, a reflux esophagitis class B identified. A biopsy was taken with forceps with visualization of good hemostasis. The endoscope was then easily advanced into the stomach. Endoscope retroflexed, visualizing a small hiatal hernia approximately 1 to 1.5 cm in size. There was a moderate severity gastritis throughout the stomach. There were no formal ulcerations, polyps or any neoplasms. A biopsy was taken of the antrum for H. pylori with visualization of good hemostasis. The endoscope was then advanced to the pylorus and the first and second portions of duodenum, which appeared normal with no distal obstructions. The endoscope was then slowly withdrawn while taking a second look and suctioning of residual air with no additional findings. The patient tolerated this portion of the procedure well. For her reflux esophagitis, small hiatal hernia as well as gastritis, we will recommend the necessary lifestyle and diet accommodation including small and more frequent meals, avoidance of eating at night as well as head elevation while lying supine. She also needs to avoid caffeinated beverages, spicy, greasy and acidic foods as well as proceed with some form of weight loss regimen which will help with her reflux type of symptoms. We will also proceed with a trial of switching her medication to Protonix 40 mg daily. Under the same anesthesia, we then proceeded with the colonoscopy portion of the procedure. A digital rectal examination was performed, which revealed chronic stage II external and internal hemorrhoids, not actively edematous nor inflamed and no bleeding. Normal sphincter tone was felt and there were no palpable masses. The endoscope was then intubated into the anus and rectum gently insufflated. The endoscope was then advanced to the valves of Maloney in the rectum with no polyps or any neoplasms identified. At the rectosigmoid junction, a small polyp approximately 2 mm in size was identified. This was biopsied and destroyed using forceps and electrocautery with visualization of good hemostasis. Endoscope was then advanced to the sigmoid colon where no diverticulosis identified. The endoscope was then advanced to the remainder of the descending, transverse and ascending colon to the cecum. These segments were normal. There were no other lesions identified throughout the colon. The endoscope was then slowly withdrawn while taking a second look and suctioning of residual air with no additional findings. The patient tolerated the procedure well. We will recommend a high fiber diet with at least 25 grams of fiber per day as well as at least 64 fluid ounces of water daily to promote soft stools on a daily basis. We will await the biopsy results and if there is any villous component to adenomatous polyp, we will recommend a followup colonoscopy in 3 years; however, if this is the benign hyperplastic polyp, she may wait longer. Job ID: [id number] DocumentID: [id number] Dictated Date: 09/25/2017 12:13:41 Floor Waxer Date: 09/25/2017 17:42:38 Dictated By: HERACLIO BRADFORD MD
== END | disposition home or self-care (01) ==
LOC: ENDO 10:03
PROVIDERS: ATTEND Surgery
DX: Z12.11 Encounter for screening for malignant neoplasm of colon (principal); D12.5 Benign neoplasm of sigmoid colon; K21.0 Gastro-esophageal reflux disease with esophagitis; K44.9 Diaphragmatic hernia without obstruction or gangrene; K29.70 Gastritis, unspecified, without bleeding; K31.9 Disease of stomach and duodenum, unspecified; K64.8 Other hemorrhoids; K64.4 Residual hemorrhoidal skin tags; I10 Essential (primary) hypertension; Z85.3 Personal history of malignant neoplasm of breast; Z92.21 Personal history of antineoplastic chemotherapy; Z92.3 Personal history of irradiation; Z80.0 Family history of malignant neoplasm of digestive organs; Z83.71 Family history of colonic polyps
CPT/HCPCS: 88305

== ENCOUNTER → 2017-09-30 | Outpatient (CLI) | payer OTHER ==
[~2017-09-30] MED LIST changes: -ACETAMINOPHEN 325 MG TABLET PO PRN; -HURRICAINE EXT TUBE (BENZOCAINE) ONE; -HURRICAINE EXT TUBE (BENZOCAINE) XX PRN; -HYDROcodone/APAP 5 MG/325 MG (LORTAB) TAB PO PRN; -LIDOCAINE JELLY 2% (XYLOCAINE) 5 ML TUBE MM PRN; -LIDOCAINE JELLY 2% (XYLOCAINE) 5 ML TUBE ONE; -MIDAZOLAM 2 MG/2 ML (VERSED) VIAL ONE; -NS IV 500 ML 500 ML IV SCH; -NS IV 500 ML 500 ML ONE; -ONDANSETRON 4 MG/2 ML (SDV) Z0FRAN IV PRN; -fentaNYL INJECTION 100 MCG/2 ML AMP ONE; -morphine INJ 10 MG/ML 1ML (SYR OR VIAL) IV PRN
--- NOTE | 2017-09-30 18:06 | Diagnostic Imaging Report ---
PROCEDURE: US left lower extremity venous. TECHNIQUE: Multiple real-time grayscale images were obtained over the left lower extremity in various projections. Additional duplex Doppler and color Doppler images were also obtained. INDICATION: Left calf pain. COMPARISON: None. FINDINGS: The left common femoral vein, superficial femoral vein, and popliteal vein appear patent and compressible. No visible thrombus is seen. There is normal variability of waveform with augmentation. IMPRESSION: No evidence of deep venous thrombosis in the left lower extremity. Dictated by: Dictated on workstation # [id number]
== END ==
LOC: RAD 16:45
PROVIDERS: ATTEND Family Medicine
DX: M79.662 Pain in left lower leg (principal)

== ENCOUNTER → 2017-11-11 | Outpatient (CLI) | payer OTHER ==
--- NOTE | 2017-11-11 18:55 | Diagnostic Imaging Report ---
INDICATION: Right breast seroma. This study is performed for followup. CORRELATION is made with prior right breast ultrasound from 05/23/2017. FINDINGS: Sonographic interrogation at the 4 o'clock location of the right breast was performed. A complex mass at this location measures 2.4 x 1.3 x 1.3 cm compared with 2.4 x 1.3 x 1.2 cm on prior. This again demonstrates some internal debris but no internal vascularity and most likely represents a resolving hematoma. No new abnormality is seen. IMPRESSION: BI-RADS 3 Stable right breast, probable resolving hematoma. Continued followup with repeat ultrasound in 6 months is recommended to show continued stability. ACR BI-RADS Category 3: Probably benign findings. Result letter will be mailed to the patient. Note: At least 10% of breast cancer is not imaged by mammography. Dictated by: Dictated on workstation # [id number]
== END ==
LOC: RAD 13:30
PROVIDERS: ATTEND Nurse Practitioner Adult Health
DX: C50.311 Malignant neoplasm of lower-inner quadrant of right female breast (principal); N64.89 Other specified disorders of breast; Z78.0 Asymptomatic menopausal state; Z79.818 Long term (current) use of other agents affecting estrogen receptors and estrogen levels

== ENCOUNTER 2017-11-20 08:58 | Outpatient (RCR) | payer OTHER ==
[~2017-11-20 08:58] MED LIST changes: -AMLO2.5T PO; +AMLO2.5T3 PO
[2017-11-20 09:09] LABS: BASOPHILS % (AUTO) 1 % (0-10); EOSINOPHILS # (AUTO) 0.2 10^3/uL (0.0-0.3); EOSINOPHILS % (AUTO) 4 % (0-10); HEMATOCRIT 40 % (35-52); HEMOGLOBIN 13.5 G/DL (11.5-16.0); LYMPHOCYTES # (AUTO) 1.8 X 10^3 (1.0-4.0); LYMPHOCYTES % (AUTO) 29 % (12-44); MEAN CORPUSCULAR HEMOGLOBIN 29 PG (25-34); MEAN CORPUSCULAR HGB CONC 34 G/DL (32-36); MEAN CORPUSCULAR VOLUME 86 FL (80-99); MEAN PLATELET VOLUME 9.5 FL (7.4-10.4); MONOCYTES # (AUTO) 0.4 X 10^3 (0.0-1.0); MONOCYTES % (AUTO) 6 % (0-12); NEUTROPHILS # (AUTO) 3.7 X 10^3 (1.8-7.8); NEUTROPHILS % (AUTO) 60 % (42-75); PLATELET COUNT 234 10^3/uL (130-400); RED BLOOD COUNT 4.62 10^6/uL (4.35-5.85); RED CELL DISTRIBUTION WIDTH 13.6 % (10.0-14.5); WHITE BLOOD COUNT 6.2 10^3/uL (4.3-11.0)
[2017-11-20 09:28] LABS: ALANINE AMINOTRANSFERASE 25 U/L (0-55); ALBUMIN 3.8 GM/DL (3.2-4.5); ALKALINE PHOSPHATASE 65 U/L (40-136); BILIRUBIN,TOTAL 0.5 MG/DL (0.1-1.0); BUN/CREATININE RATIO 18; CALCIUM 9.2 MG/DL (8.5-10.1); CARBON DIOXIDE 23 MMOL/L (21-32); CHLORIDE 110 MMOL/L (98-107); CREATININE SERUM 0.78 MG/DL (0.60-1.30); GFR ESTIMATED > 60; GLUCOSE 136 MG/DL (70-105); SODIUM 142 MMOL/L (135-145); TOTAL PROTEIN 6.6 GM/DL (6.4-8.2)
== END 2017-11-29 | disposition home or self-care (01) ==
LOC: ONC 08:58
PROVIDERS: ATTEND Internal Medicine Hematology & Oncology
DX: C50.311 Malignant neoplasm of lower-inner quadrant of right female breast (principal); M85.80 Other specified disorders of bone density and structure, unspecified site; Z17.0 Estrogen receptor positive status [ER+]; Z79.810 Long term (current) use of selective estrogen receptor modulators (SERMs); Z79.899 Other long term (current) drug therapy
CPT/HCPCS: 36415; 80053; 82306; 85025; 99213

== ENCOUNTER 2018-03-13 15:00 | Outpatient (RCR) | payer OTHER ==
[~2018-03-13 15:00] MED LIST changes: -AMLO2.5T3 PO; +AMLO2.5T4 PO
[2018-03-13 15:13] LABS: BASOPHILS % (AUTO) 0 % (0-10); EOSINOPHILS # (AUTO) 0.2 10^3/uL (0.0-0.3); EOSINOPHILS % (AUTO) 3 % (0-10); HEMATOCRIT 39 % (35-52); HEMOGLOBIN 12.9 G/DL (11.5-16.0); LYMPHOCYTES # (AUTO) 2.2 X 10^3 (1.0-4.0); LYMPHOCYTES % (AUTO) 32 % (12-44); MEAN CORPUSCULAR HEMOGLOBIN 29 PG (25-34); MEAN CORPUSCULAR HGB CONC 33 G/DL (32-36); MEAN CORPUSCULAR VOLUME 87 FL (80-99); MEAN PLATELET VOLUME 10.1 FL (7.4-10.4); MONOCYTES # (AUTO) 0.4 X 10^3 (0.0-1.0); MONOCYTES % (AUTO) 6 % (0-12); NEUTROPHILS # (AUTO) 4.2 X 10^3 (1.8-7.8); NEUTROPHILS % (AUTO) 59 % (42-75); PLATELET COUNT 227 10^3/uL (130-400); RED CELL DISTRIBUTION WIDTH 13.4 % (10.0-14.5)
[2018-03-13 15:34] LABS: ALANINE AMINOTRANSFERASE 30 U/L (0-55); ALBUMIN 3.9 GM/DL (3.2-4.5); ALKALINE PHOSPHATASE 66 U/L (40-136); BILIRUBIN,TOTAL 0.3 MG/DL (0.1-1.0); BUN/CREATININE RATIO 12; CALCIUM 9.3 MG/DL (8.5-10.1); CARBON DIOXIDE 23 MMOL/L (21-32); CHLORIDE 108 MMOL/L (98-107); CREATININE SERUM 0.91 MG/DL (0.60-1.30); GFR ESTIMATED > 60; GLUCOSE 140 MG/DL (70-105); POTASSIUM 4.1 MMOL/L (3.6-5.0); SODIUM 141 MMOL/L (135-145); TOTAL PROTEIN 6.8 GM/DL (6.4-8.2)
== END 2018-06-11 | disposition home or self-care (01) ==
LOC: ONC 15:00
PROVIDERS: ATTEND Internal Medicine Hematology & Oncology
DX: C50.311 Malignant neoplasm of lower-inner quadrant of right female breast (principal); M85.80 Other specified disorders of bone density and structure, unspecified site; Z17.0 Estrogen receptor positive status [ER+]; Z79.810 Long term (current) use of selective estrogen receptor modulators (SERMs); Z79.899 Other long term (current) drug therapy
CPT/HCPCS: 36415; 80053; 82306; 85025; 99213

== ENCOUNTER 2018-07-09 20:36 | Emergency (ER) | payer OTHER ==
[~2018-07-09] VITALS: Ht 172.7 cm; Wt 136.1 kg
--- NOTE | 2018-07-09 20:56 | ED Lower Extremity ---
General Chief Complaint: Lower Extremity Stated Complaint: L LEG PAIN Source: patient Exam Limitations: no limitations History of Present Illness Date Seen by Provider: Jul 09, 2018 Time Seen by Provider: 20:42 Initial Comments Patient presents to ER by private conveyance with chief complaint of left lower extremity pain from just above the knee radiating down to her foot. She has a history of neuropathy but her pain has never been this severe before. She says about a 9 out of 10 tonight. She took some ibuprofen at 3:00, 6 hours ago but it did not help. She is in remission for breast cancer. She had a right lumpectomy and completed radiation therapy and chemotherapy under Dr. Chase. She follows with Dr. Pate. She has a appointment on Saturday to see Dr. Chase but she does not think she can make it that far. She is not having any chest pain or shortness of breath. No redness swelling or discoloration of the leg. She says hurts in the front as well as the back. He's never had a blood clot nor does she have any family history of blood clots or bleeding disorders. She does not smoke cigarettes. She takes tamoxifen. She says the pain is in the front back and sides worse with movement or touch. She does take Lasix about 2- 3 times a week as needed for edema. Allergies and Home Medications Allergies Coded Allergies: No Known Drug Allergies (Unverified , 09/18/17) Home Medications Amlodipine Besylate 5 Mg Tablet, 5 MG PO DAILY, (Reported) Amlodipine Besylate 2.5 Mg Tablet, 2.5 MG PO DAILY, (Reported) Gabapentin 300 Mg Capsule, 300 MG PO DAILY, (Reported) Loratadine 10 Mg Tablet, 10 MG PO DAILY PRN, (Reported) Pantoprazole Sodium 40 Mg Tablet.dr 40 MG PO DAILY Prescribed by: HERACLIO BRADFORD on 09/25/17 1202 Tamoxifen Citrate 20 Mg Tablet, 20 MG PO DAILY, (Reported) Patient Home Medication List Home Medication List Reviewed: Yes Review of Systems Constitutional: No chills, No diaphoresis EENTM: No hearing loss, No ear pain Respiratory: No cough, No phlegm, No short of breath Cardiovascular: No chest pain, No edema Gastrointestinal: No abdominal pain, No constipation, No diarrhea, No nausea Genitourinary: No discharge, No dysuria Past Zpjrhok-Szefdk-Qcfiwh Hx Patient Social History Alcohol Use: Denies Use Recreational Drug Use: No Smoking Status: Never a Smoker Recent Foreign Travel: No Contact w/Someone Who Travel: No Recent Hopitalizations: No Immunizations Up To Date Date of Influenza Vaccine: Jan 14, 2017 Seasonal Allergies Seasonal Allergies: Yes Past Medical History Hypertension Neuropathy Reproductive Disorders: No Sexually Transmitted Disease: No HIV/AIDS: No Gastroesophageal Reflux Arthritis Loss of Vision: Bilateral Hearing Impairment: Denies Breast Did You Recieve Any Treatments: Yes What Type of Treatment Did You: Chemotherapy, Radiation, Surgical Intervention Adverse Reaction/Blood Tranf: No (N/A) Physical Exam Vital Signs Vital Signs - First Documented 07/09/18 20:43 Temp 98.4 Pulse 90 Resp 20 B/P (MAP) 179/114 (135) Pulse Ox 96 O2 Delivery Room Air Capillary Refill : Height, Weight, BMI Height: 5'10.00" Weight: 348lbs. 0.0oz. [id number]; 49.9 BMI Method: General Appearance: WD/WN, mild distress HEENT: PERRL/EOMI, pharynx normal Cardiovascular: normal peripheral pulses, regular rate, rhythm, other (heart rate 90-95) Respiratory: lungs clear, normal breath sounds, no respiratory distress, no accessory muscle use Gastrointestinal: normal bowel sounds, non tender, soft Legs: right leg non-tender; bilateral leg normal inspection, bilateral leg normal range of motion, bilateral leg no evidence of injury; left leg pain, left leg soft tissue tenderness, left leg other (positive Homans sign, pain to palpation with some knots palpable in the calf.) Neurologic/Tendon: normal sensation, normal motor functions, normal tendon functions Neurologic/Psychiatric: alert, oriented x 3 Skin: normal color, warm/dry Progress/Results/Core Measures Results/Orders Lab Results Laboratory Tests Test 07/09/18 20:50 Range/Units White Blood Count 7.5 4.3-11.0 10^3/uL Red Blood Count 4.33 L 4.35-5.85 10^6/uL Hemoglobin 12.7 11.5-16.0 G/DL Hematocrit 37 35-52 % Mean Corpuscular Volume 86 80-99 FL Mean Corpuscular Hemoglobin 29 25-34 PG Mean Corpuscular Hemoglobin Concent 34 32-36 G/DL Red Cell Distribution Width 13.6 10.0-14.5 % Platelet Count 232 130-400 10^3/uL Mean Platelet Volume 9.6 7.4-10.4 FL Neutrophils (%) (Auto) 56 42-75 % Lymphocytes (%) (Auto) 33 12-44 % Monocytes (%) (Auto) 7 0-12 % Eosinophils (%) (Auto) 3 0-10 % Basophils (%) (Auto) 0 0-10 % Neutrophils # (Auto) 4.2 1.8-7.8 X 10^3 Lymphocytes # (Auto) 2.5 1.0-4.0 X 10^3 Monocytes # (Auto) 0.5 0.0-1.0 X 10^3 Eosinophils # (Auto) 0.2 0.0-0.3 10^3/uL Basophils # (Auto) 0.0 0.0-0.1 10^3/uL D-Dimer 0.51 H 0.00-0.49 UG/ML Sodium Level 142 135-145 MMOL/L Potassium Level 4.0 3.6-5.0 MMOL/L Chloride Level 108 H 98-107 MMOL/L Carbon Dioxide Level 23 21-32 MMOL/L Anion Gap 11 5-14 MMOL/L Blood Urea Nitrogen 13 7-18 MG/DL Creatinine 0.76 0.60-1.30 MG/DL Estimat Glomerular Filtration Rate > 60 BUN/Creatinine Ratio 17 Glucose Level 126 H 70-105 MG/DL Calcium Level 9.1 8.5-10.1 MG/DL Corrected Calcium 9.2 8.5-10.1 MG/DL Total Bilirubin 0.3 0.1-1.0 MG/DL Aspartate Amino Transf (AST/SGOT) 27 5-34 U/L Alanine Aminotransferase (ALT/SGPT) 31 0-55 U/L Alkaline Phosphatase 61 40-136 U/L C-Reactive Protein High Sensitivity 1.40 H 0.00-0.50 MG/DL Total Protein 6.7 6.4-8.2 GM/DL Albumin 3.9 3.2-4.5 GM/DL My Orders Orders - CHRISTINE YUN Ed Iv/Invasive Line Start (07/09/18 20:53) Cbc With Automated Diff (07/09/18 20:53) Comprehensive Metabolic Panel (07/09/18 20:53) Hs C Reactive Protein (07/09/18 20:53) Fibrin Degradation Products (07/09/18 20:53) Ketorolac Injection (Toradol Injection) (07/09/18 21:00) Tetracaine 0.5% Ophth Ama Sdv (Tetracai (07/09/18 21:30) Medications Given in ED Current Medications Medications Dose Ordered Sig/Tangela Route Start Time Stop Time Status Last Admin Dose Admin Ketorolac Tromethamine 30 mg ONCE ONCE IVP 07/09/18 21:00 07/09/18 21:01 DC 07/09/18 21:07 30 MG Vital Signs/I&O 07/09/18 20:43 Temp 98.4 Pulse 90 Resp 20 B/P (MAP) 179/114 (135) Pulse Ox 96 O2 Delivery Room Air Progress Progress Note : Time: 22:00 Progress Note Well score 2 points moderate risk. D-dimer was unable even age based to rule her out so we will put her on Lovenox give her some hydrocodone to go home with for her pain and have her do an outpatient ultrasound tomorrow morning and have the results sent to Dr. Chase per her request. Pain had a significant decrease from 9-7 out of 10 after the Toradol 30 mg. We sent her home with a take-home pack of hydrocodone. Departure Impression Primary Impression: Left leg pain Disposition: HOME, SELF-CARE Condition: Stable Departure-Patient Inst. Decision time for Depature: 22:04 Referrals: MILTON PATE DO (PCP/Family) Primary Care Physician JEANNINE BHAKTA Patient Instructions: Going Home on Blood Thinners , How to Give a Blood Thinner Shot Add. Discharge Instructions: Take the Lovenox 170 mg twice a day 12 hours apart until your ultrasound comes back negative or your doctor changes you to a different medicine. Tomorrow call ultrasound on the number listed at the top of your order set and request to be set up for a ultrasound of your leg. Results will be sent to Dr. Chase and you can follow-up with him on Saturday for results. Return to the ER if you begin to have shortness of breath chest pain or other worrisome symptoms. All discharge instructions reviewed with patient and/or family. Voiced understanding. Scripts Enoxaparin Sodium (Lovenox) 80 Mg/0.8 Ml Syringe 80 MG SQ Q12HR for 7 Days, #14 SYRINGE 0 Refills Prov: CHRISTINE YUN 07/09/18 Enoxaparin Sodium (Lovenox) 100 Mg/1 Ml Syringe 100 MG SQ Q12HR for 7 Days, #14 SYRINGE 0 Refills Prov: CHRISTINE YUN 07/09/18 Hydrocodone Bit/Acetaminophen (Hydrocodone/Acetaminophen 5/325mg Tablet) 1 Tab Tab 1-2 EACH PO Q6H PRN for BREAKTHROUGH PAIN MDD 10 for 3 Days, #15 TAB 0 Refills Prov: CHRISTINE YUN 07/09/18 Copy Copies To 1: JEANNINE BHAKTA TITUS J Jul 09, 2018 20:56
[2018-07-09] MEDS ORDERED: KETOROLAC 30 MG/ML VIAL IVP ONE (21:00)
[2018-07-09 21:02] LABS: BASOPHILS % (AUTO) 0 % (0-10); EOSINOPHILS # (AUTO) 0.2 10^3/uL (0.0-0.3); EOSINOPHILS % (AUTO) 3 % (0-10); HEMATOCRIT 37 % (35-52); HEMOGLOBIN 12.7 G/DL (11.5-16.0); LYMPHOCYTES # (AUTO) 2.5 X 10^3 (1.0-4.0); LYMPHOCYTES % (AUTO) 33 % (12-44); MEAN CORPUSCULAR HEMOGLOBIN 29 PG (25-34); MEAN CORPUSCULAR HGB CONC 34 G/DL (32-36); MEAN CORPUSCULAR VOLUME 86 FL (80-99); MEAN PLATELET VOLUME 9.6 FL (7.4-10.4); MONOCYTES # (AUTO) 0.5 X 10^3 (0.0-1.0); MONOCYTES % (AUTO) 7 % (0-12); NEUTROPHILS # (AUTO) 4.2 X 10^3 (1.8-7.8); NEUTROPHILS % (AUTO) 56 % (42-75); PLATELET COUNT 232 10^3/uL (130-400); RED CELL DISTRIBUTION WIDTH 13.6 % (10.0-14.5); WHITE BLOOD COUNT 7.5 10^3/uL (4.3-11.0)
[2018-07-09 21:22] LABS: ALANINE AMINOTRANSFERASE 31 U/L (0-55); ALBUMIN 3.9 GM/DL (3.2-4.5); ALKALINE PHOSPHATASE 61 U/L (40-136); BILIRUBIN,TOTAL 0.3 MG/DL (0.1-1.0); BUN/CREATININE RATIO 17; CALCIUM 9.1 MG/DL (8.5-10.1); CARBON DIOXIDE 23 MMOL/L (21-32); CHLORIDE 108 MMOL/L (98-107); CREATININE SERUM 0.76 MG/DL (0.60-1.30); GFR ESTIMATED > 60; GLUCOSE 126 MG/DL (70-105); SODIUM 142 MMOL/L (135-145); TOTAL PROTEIN 6.7 GM/DL (6.4-8.2)
[2018-07-09] MEDS ORDERED: TETRACAINE 0.5% OPHTH SOLN 4 ML BTL (SINGLE DOSE ONLY) OU ONE (21:30)
[2018-07-09] MEDS ORDERED: ENOX100D9 SQ (22:10)
[2018-07-09] MEDS ORDERED: ACHD5005 PO (22:10)
[2018-07-09] MEDS ORDERED: ENOX80DI12 SQ (22:10)
[2018-07-09] MEDS ORDERED: RX-HYDROCODONE/APAP 5/325 MG #4 TAB PK PO PRN (22:15)
[2018-07-09] MEDS ORDERED: ENOXAPARIN 100 MG/1 ML (LOVENOX) SYR SC ONE (22:15)
[2018-07-09] MEDS ORDERED: ENOXAPARIN 80 MG/0.8 ML (LOVENOX) SYR SC ONE (22:15)
[2018-07-09 22:25] VITALS: BP 150/95
== END 2018-07-09 22:25 | disposition home or self-care (01) ==
LOC: EDUNIT# 20:36 → ER 20:38
DX: M79.605 Pain in left leg (principal); I10 Essential (primary) hypertension; K21.9 Gastro-esophageal reflux disease without esophagitis; Z85.3 Personal history of malignant neoplasm of breast; Z92.21 Personal history of antineoplastic chemotherapy
CPT/HCPCS: 36415; 80053; 85025; 85379; 86141

== ENCOUNTER 2018-07-11 10:28 | Outpatient (RCR) | payer OTHER ==
[2018-07-11 10:46] LABS: BASOPHILS % (AUTO) 1 % (0-10); EOSINOPHILS # (AUTO) 0.2 10^3/uL (0.0-0.3); EOSINOPHILS % (AUTO) 4 % (0-10); HEMATOCRIT 37 % (35-52); HEMOGLOBIN 12.5 G/DL (11.5-16.0); LYMPHOCYTES # (AUTO) 1.8 X 10^3 (1.0-4.0); LYMPHOCYTES % (AUTO) 30 % (12-44); MEAN CORPUSCULAR HEMOGLOBIN 30 PG (25-34); MEAN CORPUSCULAR HGB CONC 34 G/DL (32-36); MEAN CORPUSCULAR VOLUME 87 FL (80-99); MEAN PLATELET VOLUME 9.6 FL (7.4-10.4); MONOCYTES # (AUTO) 0.4 X 10^3 (0.0-1.0); MONOCYTES % (AUTO) 6 % (0-12); NEUTROPHILS # (AUTO) 3.7 X 10^3 (1.8-7.8); NEUTROPHILS % (AUTO) 60 % (42-75); PLATELET COUNT 210 10^3/uL (130-400); RED CELL DISTRIBUTION WIDTH 13.8 % (10.0-14.5); WHITE BLOOD COUNT 6.1 10^3/uL (4.3-11.0)
[2018-07-11 11:16] LABS: ALANINE AMINOTRANSFERASE 33 U/L (0-55); ALBUMIN 3.9 GM/DL (3.2-4.5); ALKALINE PHOSPHATASE 60 U/L (40-136); BILIRUBIN,TOTAL 0.4 MG/DL (0.1-1.0); BUN/CREATININE RATIO 15; CALCIUM 9.6 MG/DL (8.5-10.1); CARBON DIOXIDE 22 MMOL/L (21-32); CHLORIDE 107 MMOL/L (98-107); CREATININE SERUM 0.84 MG/DL (0.60-1.30); GFR ESTIMATED > 60; GLUCOSE 145 MG/DL (70-105); SODIUM 142 MMOL/L (135-145); TOTAL PROTEIN 6.4 GM/DL (6.4-8.2)
[2018-08-05] MEDS ORDERED: FURO20TA4 PO (13:23)
[2018-08-05] MEDS ORDERED: LISI10TA2 PO (13:23)
[2018-08-05] MEDS ORDERED: CALC1TAB4 PO (13:23)
[2018-08-05] MEDS ORDERED: PANT40TA2 PO (13:23)
[2018-08-05] MEDS ORDERED: AMLO10TA7 PO (13:23)
[2018-08-05] MEDS ORDERED: CHOL500044 PO (13:23)
[2018-08-05] MEDS ORDERED: CHOL200025 PO (13:23)
[2018-08-06] MEDS ORDERED: HYDR-3816 PO (12:30)
== END 2018-10-09 | disposition home or self-care (01) ==
LOC: ONC 10:28
PROVIDERS: ATTEND Internal Medicine Hematology & Oncology
DX: C50.311 Malignant neoplasm of lower-inner quadrant of right female breast (principal); Z17.0 Estrogen receptor positive status [ER+]; M85.80 Other specified disorders of bone density and structure, unspecified site; E55.9 Vitamin D deficiency, unspecified; M25.562 Pain in left knee; E66.01 Morbid (severe) obesity due to excess calories; Z68.43 Body mass index [BMI] 50.0-59.9, adult; Z79.810 Long term (current) use of selective estrogen receptor modulators (SERMs); Z79.899 Other long term (current) drug therapy
CPT/HCPCS: 36415; 80053; 85025; 99213

== ENCOUNTER → 2018-07-11 | Outpatient (CLI) | payer OTHER ==
[~2018-07-11] MED LIST changes: +ACHD5005 PO; +ENOX100D9 SQ; +ENOX80DI12 SQ
--- NOTE | 2018-07-11 08:44 | Diagnostic Imaging Report ---
PROCEDURE: US left lower extremity venous. TECHNIQUE: Multiple real-time grayscale images were obtained over the left lower extremity in various projections. Additional duplex Doppler and color Doppler images were also obtained. INDICATION: Pain and swelling. FINDINGS: The left common femoral, superficial femoral, popliteal veins and tibial veins demonstrate normal response to compression, augmentation, and Valsalva. There are no abnormal left lower extremity fluid collections or masses. IMPRESSION: No evidence of deep venous thrombosis in the left lower extremity. Dictated by: Dictated on workstation # [id number]
== END ==
LOC: RAD 07:51
PROVIDERS: ATTEND Emergency Medicine
DX: M79.89 Other specified soft tissue disorders (principal)

== ENCOUNTER → 2018-07-30 | Outpatient (CLI) | payer OTHER ==
--- NOTE | 2018-07-30 15:12 | Diagnostic Imaging Report ---
EXAMINATION: Magnetic resonance imaging of the left knee without intravenous contrast DATE: July 30, 2018. COMPARISON: None. INDICATION: 52-year-old female, left knee pain. TECHNIQUE: Multiplanar, multisequence non contrast enhanced MR imaging was accomplished. FINDINGS: There are limitations of the exam relating to low [id number] ratio. MENISCI: There is a radial oriented tear involving the posterior root of the medial meniscus. There is no current medial meniscal extrusion. There is an extensive tear of the lateral meniscus predominantly with longitudinal horizontal components involving the anterior horn, body and posterior horn. LIGAMENTS AND TENDONS: The anterior and posterior cruciate ligaments are intact. The medial collateral ligament is intact. The iliotibial band, mid third lateral capsular ligament, fibular collateral ligament, biceps femoris tendon and conjoined tendon are intact. The quadriceps tendon and patella ligament are intact. JOINT: There are broad areas of full-thickness patellofemoral compartment joint space loss. There is moderate generalized thinning of the medial compartment cartilage and mild generalized lateral compartment cartilage thinning. There is a small knee joint effusion without prominent synovitis or identified intra-articular body. BONE: There is a bone infarct of the proximal tibial epiphysis extending into the proximal tibial metaphysis. There is edema-like signal in the medial femoral condyle and medial tibial plateau which may be degenerative related. There is no acute fracture. BURSAE AND SOFT TISSUES: There is no sizable Reddy's cyst. There is nonspecific prepatellar subcutaneous edema. IMPRESSION: 1. Radially oriented tear involving the posterior root attachment of the medial meniscus without current medial meniscal extrusion. 2. Extensive tear of the lateral meniscus which is predominantly longitudinal and horizontal in morphology with involvement of the anterior horn, body and posterior horn. 3. Intact anterior and posterior cruciate ligaments. Additional ligaments and tendons are intact. 4. Severe tricompartmental osteoarthritis most notable in the patellofemoral compartment. Trace to small knee joint effusion without prominent synovitis or intra-articular body. 5. Bone infarct of the proximal tibia. No acute fracture. Dictated on workstation # [id number]
--- NOTE | 2018-07-31 15:24 | HISTORY AND PHYSICAL ---
DATE OF SERVICE: This will be for outpatient surgery on 2019 for left knee arthroscopy. HISTORY OF PRESENT ILLNESS: The patient is a 52-year-old female who injured her left knee when she was stepping on a curb. She felt an immediate pop and pain in the lateral aspect of her knee. She reports pain with stairs. She reports the pain has been unrelenting. She has undergone treatment with injection without relief. An MRI revealed a complex tear of the medial and lateral meniscus as well as chondromalacia of the patellofemoral joint. Due to functional impairment and failure to improve with conservative measures, the patient has elected to proceed with surgical intervention. REVIEW OF SYSTEMS: No chest pain, no shortness of breath, no dysuria. PAST MEDICAL HISTORY: Hypertension and breast cancer. PAST SURGICAL HISTORY: Breast reduction, lumpectomy with reconstruction and right ankle. FAMILY HISTORY: Significant for ischemic heart disease. PRIMARY CARE PROVIDER: Dr. Wallace. MEDICATIONS: Tamoxifen, vitamin D, amlodipine, lisinopril, Protonix, Neurontin and Hutchinson. ALLERGIES: No known drug allergies. SOCIAL HISTORY: The patient drinks alcohol socially. RADIOGRAPHS: Reveal mild medial joint space narrowing and mild patellofemoral joint space narrowing. PHYSICAL EXAMINATION: GENERAL: The patient is well developed, well-nourished, in no acute distress. HEENT: Normocephalic, atraumatic. Pupils are equal, round and reactive to light. Oropharynx is clear. NECK: Supple, no lymphadenopathy. LUNGS: Clear to auscultation bilaterally. HEART: Regular rate and rhythm. ABDOMEN: Soft, nontender, nondistended. EXTREMITIES: The left knee demonstrates a large effusion. She is tender along her medial joint line as well as her lateral joint line. She has pain laterally with Wan's and pain medially with Wan's. There is patellofemoral crepitus noted and pain with patellar loading. No varus valgus laxity. Negative anterior and posterior drawer, negative Ang. She has negative straight leg raise. IMPRESSION: Left knee medial and lateral meniscus tear with associated chondromalacia. PLAN: Left knee arthroscopy with partial medial and lateral meniscectomies and chondroplasty. The risks, benefits, options, ramifications and recovery were discussed at length with the patient. She understands and wishes to proceed. Job ID: [id number] DocumentID: [id number] Dictated Date: 07/31/2018 14:48:17 Wildlife Policy Professional Date: 07/31/2018 15:24:00 Dictated By: LU KUMAR MD
== END ==
LOC: RAD 12:19
PROVIDERS: ATTEND Orthopaedic Surgery
DX: M23.222 Derangement of posterior horn of medial meniscus due to old tear or injury, left knee (principal); M23.242 Derangement of anterior horn of lateral meniscus due to old tear or injury, left knee; M23.252 Derangement of posterior horn of lateral meniscus due to old tear or injury, left knee; M17.12 Unilateral primary osteoarthritis, left knee; M22.42 Chondromalacia patellae, left knee
CPT/HCPCS: 73721

== ENCOUNTER 2018-08-05 13:14 | Outpatient (CLI) | payer OTHER ==
[~2018-08-05] VITALS: Ht 172.7 cm; Wt 176.9 kg
[2018-08-05] MEDS ORDERED: PANT40TA2 PO (13:23)
[2018-08-05] MEDS ORDERED: CALC1TAB4 PO (13:23)
[2018-08-05] MEDS ORDERED: AMLO10TA7 PO (13:23)
[2018-08-05] MEDS ORDERED: FURO20TA4 PO (13:23)
[2018-08-05] MEDS ORDERED: LISI10TA2 PO (13:23)
[2018-08-05] MEDS ORDERED: CHOL500044 PO (13:23)
[2018-08-05] MEDS ORDERED: CHOL200025 PO (13:23)
[2018-08-06] MEDS ORDERED: HYDR-3816 PO (12:30)
== END 2018-08-05 13:36 | disposition home or self-care (01) ==
LOC: PREOP 13:14
PROVIDERS: ATTEND Orthopaedic Surgery
DX: Z01.818 Encounter for other preprocedural examination (principal)

== ENCOUNTER 2018-08-06 08:09 | Day surgery (SDC) | payer OTHER ==
[2018-08-06] VITALS (13 sets, daily range): BP systolic 133–171; BP diastolic 86–113
[~2018-08-06] VITALS: Ht 172.7 cm; Wt 176.9 kg
[~2018-08-06 08:09] MED LIST changes: +AMLO10TA7 PO; +CALC1TAB4 PO; +CHOL200025 PO; +CHOL500044 PO; +FURO20TA4 PO; +LISI10TA2 PO
[2018-08-06] MEDS ORDERED: HYDROcodone/APAP 7.5 MG/325 MG (LORTAB, LORCET PLUS) TABLET PO PRN (08:15)
--- NOTE | 2018-08-06 08:34 | Progress Note-Pre Operative ---
Pre-Operative Progress Note H&P Reviewed The H&P was reviewed, patient examined and no changes noted. Date Seen by Provider: August 06, 2018 Time Seen by Provider: 08:33 Date H&P Reviewed: August 06, 2018 Time H&P Reviewed: 08:33 Pre-Operative Diagnosis: left knee medial and lateral meniscus tears and chondromalacia LU KUMAR MD August 06, 2018 08:34
--- NOTE | 2018-08-06 08:35 | Progress Note-Post Operative ---
Post-Operative Progess Note Surgeon (s)/Pipe Joints Supervisor (s) Surgeon LU KUMAR MD Pipe Joints Supervisor: Nahun Mackenzie Pre-Operative Diagnosis left knee medial and lateral meniscus tears and chondromalacia Post-Operative Diagnosis left knee medial and lateral meniscus tears and chondromalacia of the medial femoral condyle, medial tibial plateau and patella Procedure & Operative Findings Date of Procedure 08/06/18 Procedure Performed/Findings left knee arthroscopic partial medial and lateral meniscectomies and chondroplasty of the medial femoral condyle, medial tibial plateau and patella Anesthesia Type GETA Estimated Blood Loss Estimated blood loss (mL): minimal Specimens/Packing Specimens Removed none Packing: none LU KUMAR MD August 06, 2018 08:35
[2018-08-06] MEDS ORDERED: LACTATED RINGERS 1,000 ML IV PRN (08:49)
[2018-08-06] MEDS ORDERED: fentaNYL INJECTION 100 MCG/2 ML AMP ONE (08:54)
[2018-08-06] MEDS ORDERED: fentaNYL INJECTION 100 MCG/2 ML AMP IVP ONE (09:00)
[2018-08-06] MEDS ORDERED: CATHETER FLUSH 10 ML SYR IV PRN (09:00)
[2018-08-06] MEDS ORDERED: ceFAZolin INJECTION 1,000 MG in WATER (STERILE) FOR INJECTION 10 ML IV ONE (09:00)
[2018-08-06] MEDS ORDERED: SEVOFLURANE (ULTANE) 15 ML INHAL SOLN ONE ×3 (09:08)
[2018-08-06] MEDS ORDERED: DEXAMETHASONE 10 MG/ML (DECADRON) 1 ML VIAL ONE (09:08)
[2018-08-06] MEDS ORDERED: LIDOCAINE PF 2% 5 ML (XYLOCAINE) VIAL ONE (09:08)
[2018-08-06] MEDS ORDERED: proPOfol 200 MG/20 ML (DIPRIVAN) VIAL IV ONE (09:08)
[2018-08-06] MEDS ORDERED: fentaNYL INJECTION 250 MCG/5 ML AMP ONE (09:08)
[2018-08-06] MEDS ORDERED: ONDANSETRON 4 MG/2 ML (SDV) Z0FRAN ONE (09:08)
[2018-08-06] MEDS ORDERED: MIDAZOLAM 2 MG/2 ML (VERSED) VIAL ONE (09:09)
[2018-08-06] MEDS ORDERED: BUPIVACAINE 0.25% 30 ML (SENSORCAINE) VIAL ONE (09:19)
[2018-08-06] MEDS ORDERED: morphine PF (DURAMORPH) 10 MG/10 ML AMP ONE (09:19)
[2018-08-06] MEDS ORDERED: morphine INJ 10 MG/ML 1ML (SYR OR VIAL) IVP ONE (10:45)
[2018-08-06] MEDS ORDERED: MEPERIDINE (DEMEROL) INJ 50 MG/ML IVP ONE (10:45)
[2018-08-06] MEDS ORDERED: HYDROmorphone 2 MG/ML VIAL (DILAUDID) IV ONE (10:45)
[2018-08-06] MEDS ORDERED: ONDANSETRON 4 MG/2 ML (SDV) Z0FRAN IVP PRN (10:45)
--- NOTE | 2018-08-06 11:24 | Anesthesia-General Post-Op ---
General Patient Condition Mental Status/LOC: Same as Preop Cardiovascular: Satisfactory Nausea/Vomiting: Absent Respiratory: Satisfactory Pain: Controlled Complications: Absent Post Op Complications Complications None Follow Up Care/Instructions Patient Instructions None needed. Anesthesia/Patient Condition Patient Condition Patient is doing well, no complaints, stable vital signs, no apparent adverse anesthesia problems. No complications reported per nursing. CHRISTINA HOBSON CRNA August 06, 2018 11:24
[2018-08-06] MEDS ORDERED: HYDR-3816 PO (12:30)
--- NOTE | 2018-08-06 15:00 | Physical Therapy Ortho Eval ---
PT Orthopedic Evaluation Type of Surgery Knee Scope (left) Prior Level of Function Current Living Status: Spouse Locomotion (Upon Admit): Independent Established Durable Medical Eq: Crutches Subjective Subjective Agrees to PT. Reports she has crutches and has used them in the past. Entry Into Home: Stairs With Railing Steps Into Home: 3 Motor Control Motor Control: Motor Control WNL ROM ROM: WFL Strength Strength: WFL Transfer Transfers (B, C, W/C) (FIM): 5 (mod indep post treatment) Gait Gait Assistive Device: Crutches Right Lower Extremity: Right Weight Bearing Status RLE: Full Weight Bearing Left Lower Extremity: Left Weight Bearing Status LLE: Weight Bearing/Tolerated Gait (FIM): 5 (mod indep post treatment) Distance (FIM): 0=257-26 ft Summary/Comments gait training with crutches with education on use of 2 crutches as well as 1 crutch. Pt demonstrated correct sequencing using crutches. Provided stair training and pt able to demonstrate correctly as well. Treatment Rendered Treatment: Therapeutic Exercises, Gait Train, Step Train Exercise Instruction: Quad Sets, Straight Leg Raise, Heel Slides Assessment/Goals Goal Time Frame: 1 Visit Understands HEP: Yes Safe Ambulation: Yes Plan Treatment Plan: Discharge PT/Family Agrees to Plan: Yes Time Time In: 1150 Time Out: 1210 Total Billed Treatment Time: 20 Billed Treatment Time visit EVM 20 BRIAN KAUR PT August 06, 2018 15:00
--- NOTE | 2018-08-06 18:58 | OPERATIVE REPORT ---
DATE OF SERVICE: 08/06/2018 PREOPERATIVE DIAGNOSES: 1. Left knee medial meniscus tear. 2. Left knee lateral meniscus tear. 3. Left knee chondromalacia medial femoral condyle. POSTOPERATIVE DIAGNOSES: 1. Left knee medial meniscus tear. 2. Left knee lateral meniscus tear. 3. Left knee chondromalacia medial femoral condyle. 4. Left knee chondromalacia of the medial tibial plateau. 5. Left knee chondromalacia of the lateral femoral condyle. PROCEDURES: 1. Left knee arthroscopic partial medial meniscectomy. 2. Left knee arthroscopic partial lateral meniscectomy. 3. Left knee arthroscopic chondroplasty medial femoral condyle. 4. Left knee arthroscopic chondroplasty medial tibial plateau. 5. Left knee arthroscopic chondroplasty of the lateral femoral condyle. SURGEON: Joel Hodge MD ARTIST CONSULTANT: NELSON Mancilla, who assisted throughout the procedure and closed the incisions. ANESTHESIA: General endotracheal by J Carlos Villegas CRNA. TOURNIQUET: Not applicable. ESTIMATED BLOOD LOSS: Minimal. DRAINS: None. COMPLICATIONS: None. POSTOPERATIVE PLANS: Routine arthroscopy protocol. The patient was transferred to the recovery room awake and in stable condition. STATEMENT OF MEDICAL NECESSITY: The patient is a 52-year-old female with complaints of left knee pain, catching, locking and swelling. She has a twisting injury to her left knee. An MRI revealed posterior horn medial and lateral meniscus tears. She has tried rest, activity modifications, anti-inflammatories, but was reported to unrelenting pain. Because of this, we elected to proceed with operative intervention. Examination under anesthesia revealed range of motion of 0/2/130 with a negative Ang, negative anterior and posterior drawer, no varus valgus laxity, negative pivot shift. Arthroscopic findings, the patella demonstrated diffuse grade II chondral loss with no unstable chondral flaps. The trochlea demonstrated no gross chondral abnormalities. Medial and lateral gutters were clear. The ACL and PCL were intact. The medial compartment demonstrated a complex tear of the posterior horn of the medial meniscus from approximately 1/2 of the posterior horn. In addition, there were grade III chondral flaps of the central portion of the femoral condyle. A 20 x 25 area and grade II chondral flaps in the central portion of the tibial plateau and a 10 x 10 area. The lateral compartment demonstrated a tear of the body and posterior horn of lateral meniscus involving approximately 20% of the posterior horn and body. In addition, there were grade III chondral flaps in the anterior central portion of the femoral condyle in 20 x 15 area. PROCEDURE: After risks and benefits of procedure were discussed and questions were answered, informed consent was signed and placed in chart. The operative site was confirmed in the preoperative holding area initialed by the surgeon. The patient was then transported to the operating room and after adequate levels of general endotracheal anesthetic were obtained, a timeout was called confirming the operative site. Examination under anesthesia was performed with the above findings noted. Left lower extremity was prepped and draped in the usual sterile fashion. The knee joint was injected with 60 mL of fluid and a standard inferolateral portal was placed with the arthroscope under direct visualization, inferior medial portal was created. The menisci and cruciates were carefully probed with the above findings noted. The unstable chondral flaps on the medial femoral condyle were debrided with shaver back to a stable edge and stable chondral flaps in the medial tibial plateau were debrided back to a stable edge as well. There was a near grade IV loss on the femoral condyle. The posterior horn of the medial meniscus was debrided with a biter and shaver, removing approximately 1/2 of the posterior horn. This was carefully probed with no further tearing or instability noted. The scope was redirected into the lateral compartment and then subchondral flaps of the lateral femoral condyle were debrided with shaver back to a stable edge and the lateral meniscus was debrided with a shaver back to a stable edge. This was carefully probed. There was no further tearing or instability noted. The knee was copiously irrigated. Portal sites were closed with 4-0 nylon in simple interrupted fashion. The knee was injected with Duramorph. The portal sites were infiltrated with plain Marcaine. A soft dressing was applied and the patient was transferred to the recovery room awake and stable condition. Job ID: [id number] DocumentID: [id number] Dictated Date: 08/06/2018 10:47:33 Natural Resource Technician Date: 08/06/2018 18:58:26 Dictated By: JOEL HODGE MD
--- NOTE | 2018-08-12 16:38 | HISTORY AND PHYSICAL ---
DATE OF SERVICE: This will be for outpatient surgery on 2019 for left knee arthroscopy. HISTORY OF PRESENT ILLNESS: The patient is a 52-year-old female who injured her left knee when she was stepping on a curb. She felt an immediate pop and pain in the lateral aspect of her knee. She reports pain with stairs. She reports the pain has been unrelenting. She has undergone treatment with injection without relief. An MRI revealed a complex tear of the medial and lateral meniscus as well as chondromalacia of the patellofemoral joint. Due to functional impairment and failure to improve with conservative measures, the patient has elected to proceed with surgical intervention. REVIEW OF SYSTEMS: No chest pain, no shortness of breath, no dysuria. PAST MEDICAL HISTORY: Hypertension and breast cancer. PAST SURGICAL HISTORY: Breast reduction, lumpectomy with reconstruction and right ankle. FAMILY HISTORY: Significant for ischemic heart disease. PRIMARY CARE PROVIDER: Dr. Wallace. MEDICATIONS: Tamoxifen, vitamin D, amlodipine, lisinopril, Protonix, Neurontin and Ada. ALLERGIES: No known drug allergies. SOCIAL HISTORY: The patient drinks alcohol socially. RADIOGRAPHS: Reveal mild medial joint space narrowing and mild patellofemoral joint space narrowing. PHYSICAL EXAMINATION: GENERAL: The patient is well developed, well-nourished, in no acute distress. HEENT: Normocephalic, atraumatic. Pupils are equal, round and reactive to light. Oropharynx is clear. NECK: Supple, no lymphadenopathy. LUNGS: Clear to auscultation bilaterally. HEART: Regular rate and rhythm. ABDOMEN: Soft, nontender, nondistended. EXTREMITIES: The left knee demonstrates a large effusion. She is tender along her medial joint line as well as her lateral joint line. She has pain laterally with Wan's and pain medially with Wan's. There is patellofemoral crepitus noted and pain with patellar loading. No varus valgus laxity. Negative anterior and posterior drawer, negative Ang. She has negative straight leg raise. IMPRESSION: Left knee medial and lateral meniscus tear with associated chondromalacia. PLAN: Left knee arthroscopy with partial medial and lateral meniscectomies and chondroplasty. The risks, benefits, options, ramifications and recovery were discussed at length with the patient. She understands and wishes to proceed. Job ID: [id number] DocumentID: [id number] Dictated Date: 07/31/2018 14:48:17 Kiln Tester Date: 07/31/2018 15:24:00 Dictated By: LU KUMAR MD <Dictated by LU KUMAR MD> <Electronically signed by LU KUMAR MD> 08/01/18 0826
== END 2018-08-06 13:07 | disposition home or self-care (01) ==
LOC: SDC 08:09
PROVIDERS: ATTEND Orthopaedic Surgery
DX: S83.282A Other tear of lateral meniscus, current injury, left knee, initial encounter (principal); S83.242A Other tear of medial meniscus, current injury, left knee, initial encounter; M94.262 Chondromalacia, left knee; X50.9XXA Other and unspecified overexertion or strenuous movements or postures, initial encounter; Z11.2 Encounter for screening for other bacterial diseases; I10 Essential (primary) hypertension; E66.01 Morbid (severe) obesity due to excess calories; Z85.3 Personal history of malignant neoplasm of breast; Z79.899 Other long term (current) drug therapy; Z68.43 Body mass index [BMI] 50.0-59.9, adult; Z82.49 Family history of ischemic heart disease and other diseases of the circulatory system
CPT/HCPCS: 87081

== ENCOUNTER 2019-01-05 10:09 | Outpatient (RCR) | payer OTHER ==
[2018-10-13 09:45] LABS: BASOPHILS % (AUTO) 0 % (0-10); EOSINOPHILS # (AUTO) 0.2 10^3/uL (0.0-0.3); EOSINOPHILS % (AUTO) 4 % (0-10); HEMATOCRIT 39 % (35-52); HEMOGLOBIN 12.9 G/DL (11.5-16.0); LYMPHOCYTES # (AUTO) 1.4 X 10^3 (1.0-4.0); LYMPHOCYTES % (AUTO) 27 % (12-44); MEAN CORPUSCULAR HEMOGLOBIN 29 PG (25-34); MEAN CORPUSCULAR HGB CONC 33 G/DL (32-36); MEAN CORPUSCULAR VOLUME 87 FL (80-99); MEAN PLATELET VOLUME 9.9 FL (7.4-10.4); MONOCYTES # (AUTO) 0.3 X 10^3 (0.0-1.0); MONOCYTES % (AUTO) 5 % (0-12); NEUTROPHILS # (AUTO) 3.5 X 10^3 (1.8-7.8); NEUTROPHILS % (AUTO) 64 % (42-75); PLATELET COUNT 228 10^3/uL (130-400); RED CELL DISTRIBUTION WIDTH 13.6 % (10.0-14.5); WHITE BLOOD COUNT 5.4 10^3/uL (4.3-11.0)
[2018-10-13 10:04] LABS: ALANINE AMINOTRANSFERASE 25 U/L (0-55); ALBUMIN 3.9 GM/DL (3.2-4.5); ALKALINE PHOSPHATASE 64 U/L (40-136); BILIRUBIN,TOTAL 0.4 MG/DL (0.1-1.0); BUN/CREATININE RATIO 14; CALCIUM 9.5 MG/DL (8.5-10.1); CARBON DIOXIDE 24 MMOL/L (21-32); CHLORIDE 107 MMOL/L (98-107); CREATININE SERUM 0.83 MG/DL (0.60-1.30); GFR ESTIMATED > 60; GLUCOSE 150 MG/DL (70-105); POTASSIUM 3.8 MMOL/L (3.6-5.0); SODIUM 142 MMOL/L (135-145); TOTAL PROTEIN 6.4 GM/DL (6.4-8.2)
[~2019-01-05 10:09] MED LIST changes: +HYDR-3816 PO
[2019-01-05 10:33] LABS: BASOPHILS % (AUTO) 0 % (0-10); EOSINOPHILS # (AUTO) 0.1 10^3/uL (0.0-0.3); EOSINOPHILS % (AUTO) 3 % (0-10); HEMATOCRIT 41 % (35-52); HEMOGLOBIN 13.6 G/DL (11.5-16.0); LYMPHOCYTES # (AUTO) 1.4 X 10^3 (1.0-4.0); LYMPHOCYTES % (AUTO) 25 % (12-44); MEAN CORPUSCULAR HEMOGLOBIN 30 PG (25-34); MEAN CORPUSCULAR HGB CONC 34 G/DL (32-36); MEAN CORPUSCULAR VOLUME 89 FL (80-99); MEAN PLATELET VOLUME 11.3 FL (7.4-10.4); MONOCYTES # (AUTO) 0.3 X 10^3 (0.0-1.0); MONOCYTES % (AUTO) 5 % (0-12); NEUTROPHILS # (AUTO) 3.8 X 10^3 (1.8-7.8); NEUTROPHILS % (AUTO) 67 % (42-75); PLATELET COUNT 226 10^3/uL (130-400); RED CELL DISTRIBUTION WIDTH 16.2 % (10.0-14.5); WHITE BLOOD COUNT 5.6 10^3/uL (4.3-11.0)
[2019-01-05 10:56] LABS: ALANINE AMINOTRANSFERASE 23 U/L (0-55); ALBUMIN 3.8 GM/DL (3.2-4.5); ALKALINE PHOSPHATASE 62 U/L (40-136); BILIRUBIN,TOTAL 0.4 MG/DL (0.1-1.0); BUN/CREATININE RATIO 10; CALCIUM 9.4 MG/DL (8.5-10.1); CARBON DIOXIDE 23 MMOL/L (21-32); CHLORIDE 112 MMOL/L (98-107); CREATININE SERUM 0.67 MG/DL (0.60-1.30); GFR ESTIMATED > 60; GLUCOSE 133 MG/DL (70-105); POTASSIUM 3.3 MMOL/L (3.6-5.0); SODIUM 146 MMOL/L (135-145); TOTAL PROTEIN 6.4 GM/DL (6.4-8.2)
== END 2019-01-11 | disposition home or self-care (01) ==
LOC: ONC 10:09
PROVIDERS: ATTEND Internal Medicine Hematology & Oncology
DX: C50.311 Malignant neoplasm of lower-inner quadrant of right female breast (principal); Z17.0 Estrogen receptor positive status [ER+]; M85.80 Other specified disorders of bone density and structure, unspecified site; E55.9 Vitamin D deficiency, unspecified; M25.562 Pain in left knee; E66.01 Morbid (severe) obesity due to excess calories; Z68.43 Body mass index [BMI] 50.0-59.9, adult; Z79.810 Long term (current) use of selective estrogen receptor modulators (SERMs); Z79.899 Other long term (current) drug therapy
CPT/HCPCS: 36415; 80053; 85025; 99213

== ENCOUNTER 2019-02-02 10:28 | Outpatient (RCR) | payer OTHER ==
[2019-02-02 11:05] LABS: BASOPHILS % (AUTO) 1 % (0-10); EOSINOPHILS # (AUTO) 0.4 10^3/uL (0.0-0.3); EOSINOPHILS % (AUTO) 6 % (0-10); HEMATOCRIT 40 % (35-52); HEMOGLOBIN 13.3 G/DL (11.5-16.0); LYMPHOCYTES # (AUTO) 1.4 X 10^3 (1.0-4.0); LYMPHOCYTES % (AUTO) 22 % (12-44); MEAN CORPUSCULAR HEMOGLOBIN 30 PG (25-34); MEAN CORPUSCULAR HGB CONC 33 G/DL (32-36); MEAN CORPUSCULAR VOLUME 91 FL (80-99); MEAN PLATELET VOLUME 11.7 FL (7.4-10.4); MONOCYTES # (AUTO) 0.3 X 10^3 (0.0-1.0); MONOCYTES % (AUTO) 5 % (0-12); NEUTROPHILS # (AUTO) 4.2 X 10^3 (1.8-7.8); NEUTROPHILS % (AUTO) 66 % (42-75); PLATELET COUNT 179 10^3/uL (130-400); RED CELL DISTRIBUTION WIDTH 14.9 % (10.0-14.5); WHITE BLOOD COUNT 6.3 10^3/uL (4.3-11.0)
[2019-02-02 11:16] LABS: ALANINE AMINOTRANSFERASE 23 U/L (0-55); ALBUMIN 3.8 GM/DL (3.2-4.5); ALKALINE PHOSPHATASE 60 U/L (40-136); BILIRUBIN,TOTAL 0.3 MG/DL (0.1-1.0); BUN/CREATININE RATIO 18; CALCIUM 9.4 MG/DL (8.5-10.1); CARBON DIOXIDE 22 MMOL/L (21-32); CHLORIDE 109 MMOL/L (98-107); CREATININE SERUM 0.67 MG/DL (0.60-1.30); GFR ESTIMATED > 60; GLUCOSE 102 MG/DL (70-105); SODIUM 141 MMOL/L (135-145); TOTAL PROTEIN 6.4 GM/DL (6.4-8.2)
== END 2019-05-03 | disposition home or self-care (01) ==
LOC: ONC 10:28
PROVIDERS: ATTEND Internal Medicine Hematology & Oncology
DX: C50.311 Malignant neoplasm of lower-inner quadrant of right female breast (principal); M23.207 Derangement of unspecified meniscus due to old tear or injury, left knee; E66.01 Morbid (severe) obesity due to excess calories; Z98.84 Bariatric surgery status; Z68.41 Body mass index [BMI] 40.0-44.9, adult; Z98.890 Other specified postprocedural states; Z79.899 Other long term (current) drug therapy
CPT/HCPCS: 36415; 80053; 85025; 99213

== ENCOUNTER → 2019-05-04 | Outpatient (CLI) | payer OTHER ==
[2019-05-04 09:41] LABS: BASOPHILS % (AUTO) 1 % (0-10); EOSINOPHILS # (AUTO) 0.1 10^3/uL (0.0-0.3); EOSINOPHILS % (AUTO) 2 % (0-10); HEMATOCRIT 40 % (35-52); HEMOGLOBIN 13.4 G/DL (11.5-16.0); LYMPHOCYTES # (AUTO) 1.6 X 10^3 (1.0-4.0); LYMPHOCYTES % (AUTO) 26 % (12-44); MEAN CORPUSCULAR HEMOGLOBIN 30 PG (25-34); MEAN CORPUSCULAR HGB CONC 34 G/DL (32-36); MEAN CORPUSCULAR VOLUME 89 FL (80-99); MEAN PLATELET VOLUME 10.9 FL (7.4-10.4); MONOCYTES # (AUTO) 0.5 X 10^3 (0.0-1.0); MONOCYTES % (AUTO) 8 % (0-12); NEUTROPHILS % (AUTO) 64 % (42-75); PLATELET COUNT 223 10^3/uL (130-400); RED CELL DISTRIBUTION WIDTH 13.7 % (10.0-14.5); WHITE BLOOD COUNT 6.3 10^3/uL (4.3-11.0)
[2019-05-04 10:00] LABS: ALANINE AMINOTRANSFERASE 25 U/L (0-55); ALKALINE PHOSPHATASE 88 U/L (40-136); BILIRUBIN,TOTAL 0.4 MG/DL (0.1-1.0); BUN/CREATININE RATIO 15; CALCIUM 9.4 MG/DL (8.5-10.1); CARBON DIOXIDE 22 MMOL/L (21-32); CHLORIDE 109 MMOL/L (98-107); CREATININE SERUM 0.68 MG/DL (0.60-1.30); GFR ESTIMATED > 60; GLUCOSE 103 MG/DL (70-105); SODIUM 141 MMOL/L (135-145); TOTAL PROTEIN 6.5 GM/DL (6.4-8.2)
== END ==
LOC: EDSTATUS 09:26 → ONC 09:27
PROVIDERS: ATTEND Internal Medicine Hematology & Oncology
DX: C50.311 Malignant neoplasm of lower-inner quadrant of right female breast (principal); E66.01 Morbid (severe) obesity due to excess calories; Z98.84 Bariatric surgery status; Z68.41 Body mass index [BMI] 40.0-44.9, adult; Z98.890 Other specified postprocedural states; Z79.899 Other long term (current) drug therapy; Z17.0 Estrogen receptor positive status [ER+]; M85.80 Other specified disorders of bone density and structure, unspecified site; E55.9 Vitamin D deficiency, unspecified; Z79.810 Long term (current) use of selective estrogen receptor modulators (SERMs)
CPT/HCPCS: 80053; 85025; 99213

== ENCOUNTER → 2019-11-02 | Outpatient (CLI) | payer OTHER ==
[~2019-11-02] MED LIST changes: +HYDR-34 PO; -HYDR-3816 PO
[2019-11-02 15:18] LABS: BASOPHILS % (AUTO) 0 % (0-10); EOSINOPHILS # (AUTO) 0.1 10^3/uL (0.0-0.3); EOSINOPHILS % (AUTO) 2 % (0-10); HEMATOCRIT 42 % (35-52); HEMOGLOBIN 14.1 G/DL (11.5-16.0); LYMPHOCYTES # (AUTO) 2.4 X 10^3 (1.0-4.0); LYMPHOCYTES % (AUTO) 27 % (12-44); MEAN CORPUSCULAR HEMOGLOBIN 30 PG (25-34); MEAN CORPUSCULAR HGB CONC 34 G/DL (32-36); MEAN CORPUSCULAR VOLUME 89 FL (80-99); MEAN PLATELET VOLUME 10.6 FL (7.4-10.4); MONOCYTES # (AUTO) 0.5 X 10^3 (0.0-1.0); MONOCYTES % (AUTO) 5 % (0-12); NEUTROPHILS # (AUTO) 5.8 X 10^3 (1.8-7.8); NEUTROPHILS % (AUTO) 66 % (42-75); PLATELET COUNT 258 10^3/uL (130-400); RED CELL DISTRIBUTION WIDTH 13.8 % (10.0-14.5); WHITE BLOOD COUNT 8.8 10^3/uL (4.3-11.0)
[2019-11-02 15:35] LABS: ALANINE AMINOTRANSFERASE 33 U/L (0-55); ALKALINE PHOSPHATASE 79 U/L (40-136); BILIRUBIN,TOTAL 0.3 MG/DL (0.1-1.0); BUN/CREATININE RATIO 24; CALCIUM 9.3 MG/DL (8.5-10.1); CARBON DIOXIDE 23 MMOL/L (21-32); CHLORIDE 107 MMOL/L (98-107); CREATININE SERUM 0.74 MG/DL (0.60-1.30); GFR ESTIMATED > 60; GLUCOSE 110 MG/DL (70-105); POTASSIUM 3.9 MMOL/L (3.6-5.0); SODIUM 141 MMOL/L (135-145); TOTAL PROTEIN 6.7 GM/DL (6.4-8.2)
== END ==
LOC: ONC 14:53
PROVIDERS: ATTEND Internal Medicine Hematology & Oncology
DX: C50.311 Malignant neoplasm of lower-inner quadrant of right female breast (principal); E66.01 Morbid (severe) obesity due to excess calories; M85.80 Other specified disorders of bone density and structure, unspecified site; E55.9 Vitamin D deficiency, unspecified; Z98.84 Bariatric surgery status; Z68.41 Body mass index [BMI] 40.0-44.9, adult; Z79.810 Long term (current) use of selective estrogen receptor modulators (SERMs); Z98.890 Other specified postprocedural states
CPT/HCPCS: 80053; 82306; 85025; G0463; 99213

== ENCOUNTER → 2019-11-10 | Outpatient (CLI) | payer OTHER ==
--- NOTE | 2019-11-10 12:30 | Diagnostic Imaging Report ---
INDICATION: Postmenopausal. COMPARISON: There are no prior studies available for comparison. FINDINGS: The bone mineral density of the hips and spine was measured. The T-score for the spine is -1.2. This does indicate mild osteopenia. The total T-score for the left hip is 0.4 and for the right hip -0.3. The T-score for the left femoral neck is -0.8 and for the right -0.7. All of these values are within normal limits. AP Spine L1-L4: [BMD (g/cm2): 1.058] [T-Score: -1.2] [Z-Score: -1.7] [BMD Previous: na] [BMD % Change: na] LT Hip Neck: [BMD (g/cm2): 0.922] [T-Score: -0.8] [Z-Score: -0.7] LT Hip Total: [BMD (g/cm2):1.58] [T-Score:0.4] [Z-Score: 0.1] [BMD Previous: na] [BMD % Change: na] RT Hip Neck: [BMD (g/cm2):0.939] [T-Score:-0.7] [Z-Score:-0.5] RT Hip Total: [BMD (g/cm2):0.964] [T-score:-0.3] [Z-Score:-0.6] [BMD Previous:na] [BMD % Change:na] *Indicates significant change from prior examination based on 95% confidence level. World Health Organization criteria for BMD interpretation classify patients as Normal (T-score at or above -1.0), Osteopenic (T-score between -1.0 and -2.5) or Osteoporotic (T-score at or below -2.5). LIMITATIONS AND MODIFICATION: None. FRACTURE RISK (FRAX SCORE): The ten year probability of (%): Major Osteoporotic Fracture: [na] Hip Fracture: [na] IMPRESSION: 1. The bone mineral density of the spine indicates mild osteopenia. 2. The T-scores for the hips and femoral necks are within normal limits. 3. See below National Osteoporosis Foundation guidelines on when to potentially initiate pharmacologic therapy. Based on the National Osteoporosis Foundation Guidelines, pharmacologic treatment should be initiated in any of the following, unless clinical conditions suggest otherwise: * Any patient with prior fragility fracture of the hip or vertebrae. A spine fracture indicates 5X risk for subsequent spine fracture and 2X risk for subsequent hip fracture. * Osteoporosis (T-score <-2.5). * Postmenopausal women and men age 50 and older with low bone mass/osteopenia (T-score between -1.0 and -2.5) by DXA and 10-year major osteoporotic fracture greater than 20% or a 10-year probability of hip fracture greater than 3%. These fracture risks are supplied above in the FRAX score, if applicable. * Clinician judgement and/or patient preferences may indicate treatment for people with 10-year fracture probabilities above or below these levels. Dictated by: Dictated on workstation # [id number]
== END ==
LOC: RAD 11:20
PROVIDERS: ATTEND Nurse Practitioner Adult Health
DX: C50.919 Malignant neoplasm of unspecified site of unspecified female breast (principal); N64.59 Other signs and symptoms in breast; Z78.0 Asymptomatic menopausal state; Z79.811 Long term (current) use of aromatase inhibitors
CPT/HCPCS: 77080

== ENCOUNTER → 2019-11-12 | Outpatient (CLI) | payer OTHER ==
--- NOTE | 2019-11-12 14:26 | Diagnostic Imaging Report ---
INDICATION: Right breast carcinoma. In addition, there is a palpable area of thickening in the medial right breast near the surgical site. CORRELATION is made with prior mammograms from 04/14/2019, 04/08/2018 and 08/13/2016. A unilateral right 2-D and 3-D diagnostic mammography was performed. There are postsurgical changes from lumpectomy in the medial right breast with multiple surgical clips present. There is a probable oil cyst or area of fat necrosis in the medial right breast at the surgical bed. No concerning mass or malignant appearing microcalcifications are seen. The right axilla is unremarkable. IMPRESSION: BI-RADS 0 Postsurgical changes in the right breast. There are no mammographic features suspicious for malignancy. Even so, sonography interrogation of the media right breast breast at the area of thickening is recommended and will be performed today. ACR BI-RADS Category 0: Incomplete. (Needs additional imaging evaluation). Result letter will be mailed to the patient. Note: At least 10% of breast cancer is not imaged by mammography. Dictated by: Dictated on workstation # [id number]
--- NOTE | 2019-11-12 16:17 | Diagnostic Imaging Report ---
INDICATION: Right breast carcinoma with lumpectomy. Patient has a lump in the medial right breast. CORRELATION is made with prior right breast ultrasound 11/11/2017. Sonographic interrogation of the medial right breast again demonstrates a complex partially fluid containing mass at the 4:00 location, 5 cm from the nipple. This measures approximately 2.2 x 1.3 cm in size, stable when compared with prior exam. This does have peripheral echogenicity consistent with calcification. This corresponds to the abnormality noted on mammogram. This most likely represents old hematoma or area of fat necrosis. No new abnormality is seen. IMPRESSION: BI-RADS Category 2 Stable post lumpectomy changes in the medial right breast, as described. The patient may return to routine screening mammography. Dictated by: Dictated on workstation # [id number]
== END ==
LOC: RAD 14:02
PROVIDERS: ATTEND Nurse Practitioner Adult Health
DX: C50.311 Malignant neoplasm of lower-inner quadrant of right female breast (principal); N64.89 Other specified disorders of breast; Z79.811 Long term (current) use of aromatase inhibitors; Z78.0 Asymptomatic menopausal state; Z98.890 Other specified postprocedural states
CPT/HCPCS: 76642; 77065; G0279

== ENCOUNTER → 2020-05-02 | Outpatient (CLI) | payer BC, OTHER ==
[~2020-05-02] MED LIST changes: +AMLO-251 PO; -AMLO10TA7 PO; -LISI10TA2 PO; +LISI10TA25 PO
[2020-05-02 15:07] LABS: BASOPHILS % (AUTO) 1 % (0-10); EOSINOPHILS % (AUTO) 2 % (0-10); HEMATOCRIT 44 % (35-52); HEMOGLOBIN 14.6 G/DL (11.5-16.0); LYMPHOCYTES # (AUTO) 2.1 X 10^3 (1.0-4.0); LYMPHOCYTES % (AUTO) 25 % (12-44); MEAN CORPUSCULAR HEMOGLOBIN 30 PG (25-34); MEAN CORPUSCULAR HGB CONC 33 G/DL (32-36); MEAN CORPUSCULAR VOLUME 91 FL (80-99); MEAN PLATELET VOLUME 9.7 FL (7.4-10.4); MONOCYTES # (AUTO) 0.4 X 10^3 (0.0-1.0); MONOCYTES % (AUTO) 5 % (0-12); NEUTROPHILS # (AUTO) 5.5 X 10^3 (1.8-7.8); NEUTROPHILS % (AUTO) 67 % (42-75); PLATELET COUNT 269 10^3/uL (130-400); WHITE BLOOD COUNT 8.2 10^3/uL (4.3-11.0)
[2020-05-02 15:08] LABS: BASOPHILS # (AUTO) 0.1 10^3/uL (0.0-0.1); EOSINOPHILS # (AUTO) 0.2 10^3/uL (0.0-0.3)
[2020-05-02 15:23] LABS: ALANINE AMINOTRANSFERASE 24 U/L (0-55); ALBUMIN 4.3 GM/DL (3.2-4.5); ALKALINE PHOSPHATASE 91 U/L (40-136); BILIRUBIN,TOTAL 0.3 MG/DL (0.1-1.0); BUN/CREATININE RATIO 21; CALCIUM 9.5 MG/DL (8.5-10.1); CARBON DIOXIDE 23 MMOL/L (21-32); CHLORIDE 106 MMOL/L (98-107); CREATININE SERUM 0.77 MG/DL (0.60-1.30); GFR ESTIMATED > 60; GLUCOSE 113 MG/DL (70-105); SODIUM 141 MMOL/L (135-145); TOTAL PROTEIN 7.3 GM/DL (6.4-8.2)
== END ==
LOC: ONC 14:55
PROVIDERS: ATTEND Internal Medicine Hematology & Oncology
DX: C50.311 Malignant neoplasm of lower-inner quadrant of right female breast (principal); Z92.3 Personal history of irradiation; E66.01 Morbid (severe) obesity due to excess calories; Z79.811 Long term (current) use of aromatase inhibitors
CPT/HCPCS: 80053; 85025; G0463; 99213

== ENCOUNTER 2020-07-31 05:32 | Emergency (ER) | payer BC ==
[~2020-07-31] VITALS: Ht 171.2 cm; Wt 106.1 kg
[2020-07-31] MEDS ORDERED: KETOROLAC 15 MG/ML VIAL IVP ONE (06:00)
[2020-07-31] MEDS ORDERED: ONDANSETRON 4 MG/2 ML (SDV) Z0FRAN IVP ONE (06:00)
--- NOTE | 2020-07-31 06:01 | ED Abdominal Pain ---
General Chief Complaint: Abdominal/GI Problems Stated Complaint: ABD PAIN TO BACK Source of Information: Patient, Family Exam Limitations: No Limitations (MARK CAMEJO MD) History of Present Illness Date Seen by Provider: July 31, 2020 Time Seen by Provider: 05:45 Initial Comments Patient is a 54-year-old female who presents to the emergency department with a chief complaint of right flank pain/ right-sided pelvic pain. Patient states yesterday she noticed that she was having some darker than normal urine that she thought was concerning for bloody urine. She denies any dysuria, urgency or frequency. She states it does not feel like she has a urinary tract infection as she has had a couple of these in the past. Patient states that after the onset of the darker than normal urine she started having pelvic cramping that she relates is similar to menstrual cramps. Patient has a history of breast cancer and no longer has menses. She denies any problems with bowel movements, no diarrhea, black or bloody stools or constipation. Nothing really makes the pain any better she did not try any medications for the pain. She states that she has a steady discomfort in her pelvis with pain that comes "in waves" into her back. No fevers or chills. No shortness of breath or chest pain. She has had a URI over the course of the last 2 or 3 days with a chronic cough. All other review of systems reviewed and negative except as stated. Timing/Duration: 12 Hours Severity/Quality: Moderate Location: RLQ Radiation: Back Activities at Onset: None Associated Symptoms: Denies Symptoms (MARK CAMEJO MD) Allergies and Home Medications Allergies Coded Allergies: No Known Drug Allergies (Unverified , 09/18/17) Home Medications Amlodipine Besylate 10 Mg Tablet, 10 MG PO DAILY, (Reported) Ca/D3/Mag#11/Zinc/Television Announcer/Arik/Bor 1 Each Tablet, 1 EACH PO DAILY, (Reported) Cholecalciferol (Vitamin D3) 2,000 Unit Tablet, 2,000 UNIT PO DAILY, (Reported) Cholecalciferol (Vitamin D3) 5,000 Unit Tablet, 5,000 UNIT PO DAILY, (Reported) Ciprofloxacin HCl 500 Mg Tablet, 500 MG PO BID Prescribed by: CARIN GUTIERREZ on 07/31/20 0915 Furosemide 20 Mg Tablet, 20 MG PO MoWeFr, (Reported) Gabapentin 300 Mg Capsule, 300 MG PO DAILY, (Reported) Hydrocodone Bit/Acetaminophen 1 Each Tablet, 1 TAB PO Q4H PRN for PAIN-MODERATE Prescribed by: WILNER JOY on 08/06/18 1230 Hydrocodone/Acetaminophen 1 Each Tablet, 1-2 TAB PO Q4H PRN for PAIN-MODERATE (5-7) Prescribed by: CARIN GUTIERREZ on 07/31/20 0916 Lisinopril 10 Mg Tablet, 10 MG PO DAILY, (Reported) Ondansetron 4 Mg Tab.rapdis, 4 MG SL Q4H PRN for NAUSEA/VOMITING Prescribed by: CARIN GUTIERREZ on 07/31/20 0915 Pantoprazole Sodium 40 Mg Tablet.dr, 40 MG PO DAILY, (Reported) Patient Home Medication List Home Medication List Reviewed: Yes (MARK CAMEJO MD) Review of Systems Review of Systems Constitutional: see HPI EENTM: No Symptoms Reported Respiratory: No Symptoms Reported Cardiovascular: No Symptoms Reported Gastrointestinal: Abdominal Pain Genitourinary: Hematuria Musculoskeletal: no symptoms reported Skin: no symptoms reported (MARK CAMEJO MD) All Other Systems Reviewed Negative Unless Noted: Yes (MARK CAMEJO MD) Past Twpdxnc-Bzazlf-Sbmpzl Hx Past Med/Social Hx: Reviewed Nursing Past Med/Soc Hx (CARIN ORNELAS MD) Patient Social History Alcohol Beverage of Choice: Whiskey 2nd Hand Smoke Exposure: Yes (SPOUSE SMOKES OUTSIDE. ) Recent Hopitalizations: No (MARK CAMEJO MD) Immunizations Up To Date Date of Influenza Vaccine: Jan 14, 2018 (MARK CAMEJO MD) Seasonal Allergies Seasonal Allergies: Yes (MARK CAMEJO MD) Past Medical History Surgeries: Yes (ANKLE REPAIR, PORT, LUMPECTOMY AND RECONSTRUCTION, port removed) Respiratory: No Cardiac: Yes Hypertension Neurological: Yes Neuropathy Reproductive Disorders: No Sexually Transmitted Disease: No HIV/AIDS: No Genitourinary: No Gastrointestinal: Yes Gastroesophageal Reflux Musculoskeletal: Yes (left knee ) Arthritis Endocrine: No HEENT: No Loss of Vision: Bilateral Hearing Impairment: Denies Cancer: Yes Breast Did You Recieve Any Treatments: Yes What Type of Treatment Did You: Chemotherapy, Radiation, Surgical Intervention Psychosocial: No Integumentary: No Blood Disorders: No Adverse Reaction/Blood Tranf: No (N/A) (MARK CAMEJO MD) Physical Exam Vital Signs Vital Signs - First Documented 07/31/20 05:37 Temp 36.2 Pulse 61 Resp 16 B/P (MAP) 140/88 (105) Pulse Ox 98 O2 Delivery Room Air (CARIN ORNELAS MD) Vital Signs Capillary Refill : (MARK CAMEJO MD) Height/Weight/BMI Height: 5'8.00" Weight: 390lbs. 0.0oz. 176.025867wi; 59.3 BMI Method:Estimated General Appearance: WD/WN, no apparent distress Neck: normal inspection Respiratory: lungs clear, normal breath sounds, no respiratory distress, no accessory muscle use Cardiovascular: regular rate, rhythm Gastrointestinal: soft, tenderness (RLQ) Extremities: normal range of motion, non-tender, normal inspection Back: normal inspection, no CVA tenderness Neurologic/Psychiatric: alert, normal mood/affect, oriented x 3 Skin: normal color, warm/dry (MARK CAMEJO MD) Progress/Results/Core Measures Results/Orders Lab Results Laboratory Tests Test 07/31/20 06:18 07/31/20 07:46 Range/Units Urine Color YELLOW Urine Clarity SL CLOUDY Urine pH 5.5 5-9 Urine Specific [place] >=1.030 1.016-1.022 Urine Protein TRACE H NEGATIVE Urine Glucose (UA) NEGATIVE NEGATIVE Urine Ketones NEGATIVE NEGATIVE Urine Nitrite NEGATIVE NEGATIVE Urine Bilirubin NEGATIVE NEGATIVE Urine Urobilinogen 0.2 < = 1.0 MG/DL Urine Leukocyte Esterase NEGATIVE NEGATIVE Urine RBC (Auto) 3+ H NEGATIVE Urine RBC TNTC H /HPF Urine WBC NONE /HPF Urine Squamous Epithelial Cells RARE /HPF Urine Crystals NONE /LPF Urine Bacteria NEGATIVE /HPF Urine Casts NONE /LPF Urine Mucus NEGATIVE /LPF Urine Culture Indicated NO White Blood Count 8.7 4.3-11.0 10^3/uL Red Blood Count 4.54 3.80-5.11 10^6/uL Hemoglobin 13.8 11.5-16.0 g/dL Hematocrit 42 35-52 % Mean Corpuscular Volume 92 80-99 fL Mean Corpuscular Hemoglobin 30 25-34 pg Mean Corpuscular Hemoglobin Concent 33 32-36 g/dL Red Cell Distribution Width 13.2 10.0-14.5 % Platelet Count 219 130-400 10^3/uL Mean Platelet Volume 10.0 9.0-12.2 fL Immature Granulocyte % (Auto) 0 % Neutrophils (%) (Auto) 84 H 42-75 % Lymphocytes (%) (Auto) 10 L 12-44 % Monocytes (%) (Auto) 5 0-12 % Eosinophils (%) (Auto) 1 0-10 % Basophils (%) (Auto) 0 0-10 % Neutrophils # (Auto) 7.3 1.8-7.8 10^3/uL Lymphocytes # (Auto) 0.9 L 1.0-4.0 10^3/uL Monocytes # (Auto) 0.4 0.0-1.0 10^3/uL Eosinophils # (Auto) 0.1 0.0-0.3 10^3/uL Basophils # (Auto) 0.0 0.0-0.1 10^3/uL Immature Granulocyte # (Auto) 0.0 0.0-0.1 10^3/uL Sodium Level 141 135-145 MMOL/L Potassium Level 4.0 3.6-5.0 MMOL/L Chloride Level 106 98-107 MMOL/L Carbon Dioxide Level 23 21-32 MMOL/L Anion Gap 12 5-14 MMOL/L Blood Urea Nitrogen 15 7-18 MG/DL Creatinine 0.77 0.60-1.30 MG/DL Estimat Glomerular Filtration Rate > 60 BUN/Creatinine Ratio 19 Glucose Level 122 H 70-105 MG/DL Calcium Level 9.2 8.5-10.1 MG/DL Corrected Calcium 9.1 8.5-10.1 MG/DL Total Bilirubin 0.5 0.1-1.0 MG/DL Aspartate Amino Transf (AST/SGOT) 26 5-34 U/L Alanine Aminotransferase (ALT/SGPT) 24 0-55 U/L Alkaline Phosphatase 83 40-136 U/L Total Protein 6.6 6.4-8.2 GM/DL Albumin 4.1 3.2-4.5 GM/DL (CARIN ORNELAS MD) My Orders Orders - CARIN ORNELAS MD Ct Abd/Pelvis Wo(Kidney Stone) (07/31/20 06:38) Comprehensive Metabolic Panel (07/31/20 06:46) Ketorolac Injection (Toradol Injection) (07/31/20 07:00) Ondansetron Oral Dissolve Tab (Zofran (07/31/20 07:00) (CARIN ORNELAS MD) Medications Given in ED Current Medications Medications Dose Ordered Sig/Tangela Route Start Time Stop Time Status Last Admin Dose Admin Ketorolac Tromethamine 30 mg ONCE ONCE IM 07/31/20 07:00 07/31/20 07:02 DC 07/31/20 06:53 30 MG Ondansetron HCl 8 mg ONCE ONCE SL 07/31/20 07:00 07/31/20 07:02 DC 07/31/20 06:54 8 MG (CARIN ORNELAS MD) Vital Signs/I&O 07/31/20 07/31/20 05:37 09:25 Temp 36.2 Pulse 61 55 Resp 16 18 B/P (MAP) 140/88 (105) 119/76 Pulse Ox 98 98 O2 Delivery Room Air (CARIN ORNELAS MD) Progress Progress Note : Time: 06:05 Progress Note Care passed to Dr Miles at shift change (MARK CAMEJO MD) Progress Note #1: Time: 07:06 Progress Note Care of this patient was assumed from Dr. Camejo at shift change. IV access has not been established after 4 attempts. I have changed her Zofran to sublingual and her Toradol to IM. Urinalysis demonstrated a significant amount of blood. CT stone search has been ordered for further evaluation. Patient still is experiencing nausea and waves of right lower quadrant abdominal pain. Progress Note #2: Progress Note 6 mm right proximal ureteral stone was identified on CT. Symptoms were well cont rolled. Labs reviewed. Patient discharged with Rx and urine strainer. See discharge instructions. (CARIN ORNELAS MD) Diagnostic Imaging Diagonstic Imaging: CT Plain Films/CT/US/NM/MRI: abdomen, pelvis Comments CT abdomen pelvis viewed by me and report reviewed. See report below: NAME: OLEGARIO MARTIN [facility] REC#: [id number] PT STATUS: REG ER : 1965 PHYSICIAN: CARIN ORNELAS MD ADMIT DATE: 07/31/20/ER Draft Date of Exam:07/31/20 CT ABD/PELVIS WO(KIDNEY STONE) PROCEDURE: CT urinary tract, rule out kidney stone. TECHNIQUE: Multiple contiguous axial images were obtained through the abdomen and pelvis without the use of intravenous contrast. Auto Exposure Controls were utilized during the CT exam to meet ALARA standards for radiation dose reduction. INDICATION: Right flank pain. COMPARISON: 08/13/2016 FINDINGS: Included portions of the lung bases are clear. CT ABDOMEN: 5 to 6 mm micronodule is identified within the proximal right ureter (image 68, series 2). As a result, there is mild to moderate proximal hydroureteronephrosis. No other renal or ureteral calculi are seen on either side. Additionally, there is no hydroureteronephrosis or other evidence of obstruction on the left. No focal renal masses are identified on this noncontrast study. There is cholelithiasis, but no gallbladder wall thickening or pericholecystic free fluid to suggest acute cholecystitis. The adrenal glands, spleen, pancreas, and liver have an unremarkable noncontrast CT appearance. Small bowel loops are nondistended. Patient is status post previous gastric bypass. Normal appendix is identified. Moderate air and stool is noted scattered throughout the colon. There is no loculated fluid collection, free fluid or free air within the abdomen. No abnormal mesenteric or retroperitoneal adenopathy is seen. Osseous structures show no acute abnormalities. CT PELVIS: Urinary bladder is unopacified and nondistended. No calculi are seen within the urinary bladder. There is no loculated fluid collection, free fluid or free air. No abnormal lymph nodes are seen. Osseous structures show no acute abnormalities. IMPRESSION: 1. A 6 mm calculus within the proximal right ureter resulting in mild to moderate proximal hydroureteronephrosis. 2. Cholelithiasis, but no CT evidence of acute cholecystitis. 3. Moderate colonic air and stool. Please correlate for constipation. Dictated on workstation # [id number] Dict: 07/31/2018 Trans: 07/31/20 0827 [facility] [id number] Interpreted by: RUPESH CABRERA MD (CARIN ORNELAS MD) Departure Impression Primary Impression: Right ureteral stone Additional Impression: Cholelithiasis Qualified Codes: K80.20 - Calculus of gallbladder without cholecystitis without obstruction Disposition: HOME, SELF-CARE Condition: Improved Departure-Patient Inst. Decision time for Depature: 09:12 (CARIN ORNELAS MD) Referrals: MILTON PATE DO (PCP/Family) Primary Care Physician NATHAN MOSER MD Patient Instructions: Kidney Stones in Adults Add. Discharge Instructions: Drink plenty of clear liquids to stay well-hydrated and to help pass the kidney stone. Use hydrocodone as prescribed to manage pain. Avoid use of NSAID medications such as ibuprofen or naproxen as this may interfere with ureteral stone removal procedures. Contacted Dr. Moser or the urologist of your choice on Saturday to make follow-up arrangements. Use the Zofran (ondansetron) as prescribed for nausea and vomiting. Call with questions or concerns. Strain your urine and bring any stones collected to your follow-up appointment. Return to care if you have worsening symptoms or develop new symptoms such as fever. All discharge instructions reviewed with patient and/or family. Voiced understanding. Scripts Ondansetron (Ondansetron Odt) 4 Mg Tab.rapdis 4 MG SL Q4H PRN for NAUSEA/VOMITING, #10 TAB Prov: CARIN ORNELAS MD 07/31/20 Hydrocodone/Acetaminophen (Hydrocodone-Acetamin 5-325 mg) 1 Each Tablet 1-2 TAB PO Q4H PRN for PAIN-MODERATE (5-7), #20 TAB Prov: CARIN ORNELAS MD 07/31/20 Ciprofloxacin HCl (Ciprofloxacin HCl) 500 Mg Tablet 500 MG PO BID, #14 TAB Prov: CARIN ORNELAS MD 07/31/20 Copy Copies To 1: NATHAN MOSER MD Copies To 2: MILTON PATE KATHRYN M MD July 31, 2020 06:01 CARIN ORNELAS MD July 31, 2020 07:10
[2020-07-31 06:25] LABS: BILIRUBIN,URINE NEGATIVE (NEGATIVE); CLARITY,URINE SL CLOUDY; COLOR,URINE YELLOW; GLUCOSE, URINE (UA) NEGATIVE (NEGATIVE); KETONES,URINE NEGATIVE (NEGATIVE); LEUKOCYTE ESTERASE ,URINE NEGATIVE (NEGATIVE); NITRITE,URINE NEGATIVE (NEGATIVE); PH,URINE 5.5 (5-9); PROTEIN,URINE TRACE (NEGATIVE)
[2020-07-31 06:34] LABS: BACTERIA,URINE NEGATIVE /HPF; RBC,URINE TNTC /HPF; SQUAMOUS EPITHELIAL CELL,UR RARE /HPF
[2020-07-31] MEDS ORDERED: KETOROLAC 30 MG/ML VIAL IM ONE (07:00)
[2020-07-31] MEDS ORDERED: ONDANSETRON 4 MG (ZOFRAN) ORAL DISSOLVE TAB SL ONE (07:00)
[2020-07-31 07:56] LABS: BASOPHILS % (AUTO) 0 % (0-10); EOSINOPHILS # (AUTO) 0.1 10^3/uL (0.0-0.3); EOSINOPHILS % (AUTO) 1 % (0-10); HEMATOCRIT 42 % (35-52); HEMOGLOBIN 13.8 g/dL (11.5-16.0); LYMPHOCYTES # (AUTO) 0.9 10^3/uL (1.0-4.0); LYMPHOCYTES % (AUTO) 10 % (12-44); MEAN CORPUSCULAR HEMOGLOBIN 30 pg (25-34); MEAN CORPUSCULAR HGB CONC 33 g/dL (32-36); MEAN CORPUSCULAR VOLUME 92 fL (80-99); MONOCYTES # (AUTO) 0.4 10^3/uL (0.0-1.0); MONOCYTES % (AUTO) 5 % (0-12); NEUTROPHILS # (AUTO) 7.3 10^3/uL (1.8-7.8); NEUTROPHILS % (AUTO) 84 % (42-75); PLATELET COUNT 219 10^3/uL (130-400); WHITE BLOOD COUNT 8.7 10^3/uL (4.3-11.0)
[2020-07-31 08:07] LABS: ALBUMIN 4.1 GM/DL (3.2-4.5); CHLORIDE 106 MMOL/L (98-107); SODIUM 141 MMOL/L (135-145)
[2020-07-31 08:08] LABS: CALCIUM 9.2 MG/DL (8.5-10.1)
[2020-07-31 08:09] LABS: GLUCOSE 122 MG/DL (70-105)
[2020-07-31 08:10] LABS: TOTAL PROTEIN 6.6 GM/DL (6.4-8.2)
[2020-07-31 08:11] LABS: BILIRUBIN,TOTAL 0.5 MG/DL (0.1-1.0); CARBON DIOXIDE 23 MMOL/L (21-32)
[2020-07-31 08:13] LABS: ALKALINE PHOSPHATASE 83 U/L (40-136); CREATININE SERUM 0.77 MG/DL (0.60-1.30); GFR ESTIMATED > 60
[2020-07-31 08:14] LABS: BUN/CREATININE RATIO 19
[2020-07-31 08:16] LABS: ALANINE AMINOTRANSFERASE 24 U/L (0-55)
--- NOTE | 2020-07-31 08:28 | Diagnostic Imaging Report ---
PROCEDURE: CT urinary tract, rule out kidney stone. TECHNIQUE: Multiple contiguous axial images were obtained through the abdomen and pelvis without the use of intravenous contrast. Auto Exposure Controls were utilized during the CT exam to meet ALARA standards for radiation dose reduction. INDICATION: Right flank pain. COMPARISON: 08/13/2016 FINDINGS: Included portions of the lung bases are clear. CT ABDOMEN: 5 to 6 mm micronodule is identified within the proximal right ureter (image 68, series 2). As a result, there is mild to moderate proximal hydroureteronephrosis. No other renal or ureteral calculi are seen on either side. Additionally, there is no hydroureteronephrosis or other evidence of obstruction on the left. No focal renal masses are identified on this noncontrast study. There is cholelithiasis, but no gallbladder wall thickening or pericholecystic free fluid to suggest acute cholecystitis. The adrenal glands, spleen, pancreas, and liver have an unremarkable noncontrast CT appearance. Small bowel loops are nondistended. Patient is status post previous gastric bypass. Normal appendix is identified. Moderate air and stool is noted scattered throughout the colon. There is no loculated fluid collection, free fluid or free air within the abdomen. No abnormal mesenteric or retroperitoneal adenopathy is seen. Osseous structures show no acute abnormalities. CT PELVIS: Urinary bladder is unopacified and nondistended. No calculi are seen within the urinary bladder. There is no loculated fluid collection, free fluid or free air. No abnormal lymph nodes are seen. Osseous structures show no acute abnormalities. IMPRESSION: 1. A 6 mm calculus within the proximal right ureter resulting in mild to moderate proximal hydroureteronephrosis. 2. Cholelithiasis, but no CT evidence of acute cholecystitis. 3. Moderate colonic air and stool. Please correlate for constipation. Dictated by: Dictated on workstation # [id number]
[2020-07-31] MEDS ORDERED: ONDA4TAB11 SL (09:15)
[2020-07-31] MEDS ORDERED: ACHD5005 PO (09:15)
[2020-07-31] MEDS ORDERED: CIPR500T5 PO (09:15)
[2020-07-31 09:25] VITALS: BP 119/76
[2020-08-01] MEDS ORDERED: LETR2.5T6 PO (16:07)
[2020-08-01] MEDS ORDERED: CHOL200014 PO (16:15)
[2020-08-01] MEDS ORDERED: MV-M1TAB57 PO (16:15)
== END 2020-07-31 09:25 | disposition home or self-care (01) ==
LOC: EDUNIT# 05:32 → ER 05:33
DX: N13.2 Hydronephrosis with renal and ureteral calculous obstruction (principal); K80.20 Calculus of gallbladder without cholecystitis without obstruction; I10 Essential (primary) hypertension; K21.9 Gastro-esophageal reflux disease without esophagitis; Z77.22 Contact with and (suspected) exposure to environmental tobacco smoke (acute) (chronic); Z79.899 Other long term (current) drug therapy
CPT/HCPCS: 36415; 74176; 80053; 81000; 85025

== ENCOUNTER 2020-08-01 14:00 | Outpatient (CLI) | payer BC ==
[~2020-08-01] VITALS: Ht 170.2 cm; Wt 106.4 kg
[~2020-08-01 14:00] MED LIST changes: -CHOL200014 PO; -CIPR250T3 PO; -LETR2.5T6 PO; -MV-M1TAB57 PO; -NITR-65 PO; -ONDN4T PO; -TMSL.4C PO; -TRAM50TA3 PO
[2020-08-01] MEDS ORDERED: LETR2.5T6 PO (16:07)
[2020-08-01] MEDS ORDERED: CHOL200014 PO (16:15)
[2020-08-01] MEDS ORDERED: MV-M1TAB57 PO (16:15)
[2020-08-02] MEDS ORDERED: ONDN4T PO (08:26)
[2020-08-02] MEDS ORDERED: CIPR250T3 PO (08:26)
[2020-08-02] MEDS ORDERED: TMSL.4C PO (11:21)
[2020-08-02] MEDS ORDERED: TRAM50TA3 PO (11:21)
[2020-08-02] MEDS ORDERED: NITR-65 PO (11:21)
== END 2020-08-01 16:17 | disposition home or self-care (01) ==
LOC: PREOP 14:00
PROVIDERS: ATTEND Urology
DX: Z01.818 Encounter for other preprocedural examination (principal)

== ENCOUNTER → 2020-08-01 | Outpatient (CLI) | payer BC ==
[~2020-08-01] MED LIST changes: +CHOL200014 PO; +CIPR250T3 PO; +CIPR500T5 PO; +LETR2.5T6 PO; +MV-M1TAB57 PO; +NITR-65 PO; +ONDA4TAB11 SL; +ONDN4T PO; +TMSL.4C PO; +TRAM50TA3 PO
--- NOTE | 2020-08-01 13:00 | Diagnostic Imaging Report ---
EXAMINATION: Supine abdomen at 12:31 PM. INDICATION: Right nephrolithiasis. TECHNIQUE: A single supine view was obtained. FINDINGS: The CT abdomen/pelvis exam performed on 07/31/2020 noted partial obstruction of the right collecting system due to a 6 mm calculus in the proximal right ureter. On this exam, the obstructive calculus is again identified. It does not seem to have changed significantly in position since the prior exam. The calculus lies at the level of the right transverse process of L4. There is no other pathological calcification identified. There are a few phleboliths low in the pelvis. Surgical sutures are again seen overlying the left mid abdomen. IMPRESSION: 1. The calculus producing partial obstruction of the right collecting system seen previously is again evident and does not appear to have changed significantly in position. 2. There is no acute abnormality identified otherwise. Dictated by: Dictated on workstation # [id number]
== END ==
LOC: RAD 12:06
PROVIDERS: ATTEND Urology
DX: N20.2 Calculus of kidney with calculus of ureter (principal)
CPT/HCPCS: 74018

== ENCOUNTER 2020-08-02 07:33 | Day surgery (SDC) | payer BC ==
[~2020-08-02] VITALS: Ht 170.2 cm; Wt 106.4 kg
[2020-08-02] VITALS (9 sets, daily range): BP systolic 120–152; BP diastolic 73–87
[~2020-08-02 07:33] MED LIST changes: +CHOL200014 PO; +LETR2.5T6 PO; +MV-M1TAB57 PO
--- NOTE | 2020-08-02 08:13 | Diagnostic Imaging Report ---
EXAMINATION: Supine abdomen at 7:57 AM INDICATION: Nephrolithiasis/urolithiasis. As noted on the prior exam of 08/01/2020, there is a 6 mm calculus overlying the tip of the right transverse process of L4. The calculus is virtually unchanged in position when compared to the prior exam. The overall appearance of the abdomen is otherwise stable. IMPRESSION: The obstructive calculus in the midportion of the right ureter seen previously is again evident and stable in position. Dictated by: Dictated on workstation # [id number]
[2020-08-02] MEDS ORDERED: CIPR250T3 PO (08:26)
[2020-08-02] MEDS ORDERED: ONDN4T PO (08:26)
[2020-08-02] MEDS ORDERED: cefTRIAXone FOR IV USE 1,000 MG in WATER (STERILE) FOR INJECTION 10 ML IV ONE (08:30)
--- NOTE | 2020-08-02 08:32 | Progress Note-Pre Operative ---
Pre-Operative Progress Note H&P Reviewed The H&P was reviewed, patient examined and no changes noted. Date Seen by Provider: August 02, 2020 Time Seen by Provider: 08:32 Date H&P Reviewed: August 02, 2020 Time H&P Reviewed: 08:32 Pre-Operative Diagnosis: RT PROXIMAL URETERAL STONE NATHAN MOSER MD August 02, 2020 08:32
[2020-08-02] MEDS ORDERED: fentaNYL INJ 100 MCG/2 ML AMP ONE (08:44)
[2020-08-02] MEDS ORDERED: ONDANSETRON 4 MG/2 ML (SDV) Z0FRAN ONE (08:44)
[2020-08-02] MEDS ORDERED: LIDOCAINE PF 2% 5 ML (XYLOCAINE) VIAL ONE (08:44)
[2020-08-02] MEDS ORDERED: proPOfol 200 MG/20 ML (DIPRIVAN) VIAL IV ONE (08:44)
[2020-08-02] MEDS ORDERED: MIDAZOLAM 2 MG/2 ML (VERSED) VIAL ONE (08:44)
[2020-08-02] MEDS ORDERED: LACTATED RINGERS 1,000 ML IV PRN (08:45)
[2020-08-02] MEDS ORDERED: SEVOFLURANE (ULTANE) 15 ML INHAL SOLN ONE (08:46)
[2020-08-02] MEDS ORDERED: KETOROLAC 30 MG/ML VIAL ONE (08:46)
[2020-08-02] MEDS ORDERED: FUROSEMIDE 40 MG/4 ML INJ (LASIX) ONE (08:46)
--- NOTE | 2020-08-02 10:05 | Progress Note-Post Operative ---
Post-Operative Progess Note Surgeon (s)/Medical Transcription Radiology (s) Surgeon NATHAN MOSER MD Medical Transcription Radiology: NONE Pre-Operative Diagnosis RT PROXIMAL URETERAL STONE Post-Operative Diagnosis SAME Procedure & Operative Findings Date of Procedure 08/02/20 Procedure Performed/Findings RT ESWL Anesthesia Type GENERAL Estimated Blood Loss Estimated blood loss (mL): NONE Specimens/Packing Specimens Removed NONE Packing: NONE NATHAN MOSER MD August 02, 2020 10:05
--- NOTE | 2020-08-02 10:07 | Discharge Inst-Urology ---
Discharge Inst-Urology Reconcile Patient Problems Problems Reviewed?: Yes Final Diagnosis RT PROXIMAL URETERAL STONE Patient Instructions/Follow Up Plan/Assessment/Instructions Please make appointment to been seen in office Tuesday 08/15. KUB prior to it. KUB on way homt Post ESWL instructions Increase oral fluids for 48 hours and then as needed. Diet and Activity as tolerated. If questions or concerns contact your physician Or seek help at emergency department. NATHAN MOSER MD August 02, 2020 10:07
[2020-08-02] MEDS ORDERED: TRAM50TA3 PO (11:21)
[2020-08-02] MEDS ORDERED: TMSL.4C PO (11:21)
[2020-08-02] MEDS ORDERED: NITR-65 PO (11:21)
--- NOTE | 2020-08-02 11:55 | Diagnostic Imaging Report ---
INDICATION: Nephrolithiasis, post extracorporeal shock wave lithotripsy. TECHNIQUE: Two supine views of the abdomen at 11:30 AM. CORRELATION STUDY: 08/02/2020. FINDINGS: A moderate amount of stool and gas does obscure detail. Surgical suture line in the left mid abdomen. Previously noted calcification projecting over the right L4 transverse process is not well visualized but may have migrated slightly inferiorly at approximately the L5 level. Additional right lower pelvic calcifications are unchanged. Transitional anatomy at the lumbosacral junction. IMPRESSION: Likely slight interval migration of a right ureteral stone now at approximately the L5 level. Dictated by: Dictated on workstation # [id number]
--- NOTE | 2020-08-02 14:13 | OPERATIVE REPORT ---
DATE OF SERVICE: 08/02/2020 PREOPERATIVE DIAGNOSIS: Right proximal ureteral stone. POSTOPERATIVE DIAGNOSIS: Right proximal ureteral stone. OPERATION PERFORMED: Right ESWL. SURGEON: Daniel Moser MD ANESTHESIA: General. COMPLICATIONS: None. DESCRIPTION OF PROCEDURE: Under satisfactory general anesthesia, the patient in supine position, the right proximal ureteral stone was localized. Shocks were delivered at kV of 6. Total of 2500 shocks completely fragmented the stone that was not visualized anymore. The patient received 40 mg of Lasix and 30 mg of Toradol IV at the end of the procedure. She tolerated the procedure and anesthesia well and was sent to recovery room in stable condition. Job ID: [id number] DocumentID: [id number] Dictated Date: 08/02/2020 10:16:38 Professor Of Business Date: 08/02/2020 14:13:11 Dictated By: DANIEL MOSER MD
--- NOTE | 2020-08-02 14:28 | Anesthesia-General Post-Op ---
General Patient Condition Mental Status/LOC: Same as Preop Cardiovascular: Satisfactory Nausea/Vomiting: Absent Respiratory: Satisfactory Pain: Controlled Complications: Absent Post Op Complications Complications None Follow Up Care/Instructions Patient Instructions None needed. Anesthesia/Patient Condition Patient Condition Patient is doing well, no complaints, stable vital signs, no apparent adverse anesthesia problems. No complications reported per nursing. CHRISTINA HOBSON CRNA August 02, 2020 14:28
== END 2020-08-02 11:55 | disposition home or self-care (01) ==
LOC: SDC 07:33
PROVIDERS: ATTEND Urology
DX: N20.1 Calculus of ureter (principal); I10 Essential (primary) hypertension; K21.9 Gastro-esophageal reflux disease without esophagitis; G62.9 Polyneuropathy, unspecified; Z85.3 Personal history of malignant neoplasm of breast; Z79.899 Other long term (current) drug therapy
CPT/HCPCS: 74018; 87081

== ENCOUNTER → 2020-08-15 | Outpatient (CLI) | payer BC ==
[~2020-08-15] MED LIST changes: +CIPR250T3 PO; +NITR-65 PO; +ONDN4T PO; +TMSL.4C PO; +TRAM50TA3 PO
--- NOTE | 2020-08-15 16:05 | Diagnostic Imaging Report ---
INDICATION: Nephrolithiasis KUB 1:43 PM Bowel gas pattern is normal. Patient has had previous partial bowel resection. There are no pathologic masses or calcifications seen. IMPRESSION: No acute abnormalities in the abdomen Dictated by: Dictated on workstation # [id number]
== END ==
LOC: RAD 13:25
PROVIDERS: ATTEND Urology
DX: N20.2 Calculus of kidney with calculus of ureter (principal)
CPT/HCPCS: 74018

== ENCOUNTER → 2020-11-07 | Outpatient (CLI) | payer BC ==
[2020-11-07 15:07] LABS: BASOPHILS % (AUTO) 1 % (0-10); EOSINOPHILS # (AUTO) 0.1 10^3/uL (0.0-0.3); EOSINOPHILS % (AUTO) 2 % (0-10); HEMATOCRIT 42 % (35-52); HEMOGLOBIN 13.7 g/dL (11.5-16.0); LYMPHOCYTES # (AUTO) 1.8 10^3/uL (1.0-4.0); LYMPHOCYTES % (AUTO) 23 % (12-44); MEAN CORPUSCULAR HEMOGLOBIN 31 pg (25-34); MEAN CORPUSCULAR HGB CONC 33 g/dL (32-36); MEAN CORPUSCULAR VOLUME 93 fL (80-99); MEAN PLATELET VOLUME 9.9 fL (9.0-12.2); MONOCYTES # (AUTO) 0.4 10^3/uL (0.0-1.0); MONOCYTES % (AUTO) 6 % (0-12); NEUTROPHILS # (AUTO) 5.3 10^3/uL (1.8-7.8); NEUTROPHILS % (AUTO) 69 % (42-75); PLATELET COUNT 230 10^3/uL (130-400); WHITE BLOOD COUNT 7.7 10^3/uL (4.3-11.0)
[2020-11-07 15:29] LABS: ALBUMIN 3.9 GM/DL (3.2-4.5); BILIRUBIN,TOTAL 0.4 MG/DL (0.1-1.0); CALCIUM 9.2 MG/DL (8.5-10.1); CREATININE SERUM 1.07 MG/DL (0.60-1.30); TOTAL PROTEIN 6.9 GM/DL (6.4-8.2)
== END ==
LOC: ONC 14:56
PROVIDERS: ATTEND Internal Medicine Hematology & Oncology
DX: C50.311 Malignant neoplasm of lower-inner quadrant of right female breast (principal); I10 Essential (primary) hypertension; E66.9 Obesity, unspecified; Z90.11 Acquired absence of right breast and nipple; Z79.811 Long term (current) use of aromatase inhibitors
CPT/HCPCS: 80053; 85025; G0463; 99213

== ENCOUNTER 2022-09-27 13:07 | Outpatient (CLI) | payer BC, OTHER ==
[~2022-09-27] VITALS: Ht 172.7 cm; Wt 113.6 kg
[~2022-09-27 13:07] MED LIST changes: -CHOL200014 PO; +CHOL200052 PO; +OMEP20TA56 PO; -OMEP20TA7 PO
[2022-09-27 14:27] VITALS: BP 122/77
[2022-09-27 14:30] LABS: BILIRUBIN,URINE NEGATIVE (NEGATIVE); CLARITY,URINE CLEAR; COLOR,URINE YELLOW; GLUCOSE, URINE (UA) NEGATIVE (NEGATIVE); KETONES,URINE NEGATIVE (NEGATIVE); LEUKOCYTE ESTERASE ,URINE NEGATIVE (NEGATIVE); NITRITE,URINE NEGATIVE (NEGATIVE); PH,URINE 5.5 (5-9); PROTEIN,URINE NEGATIVE (NEGATIVE)
[2022-09-27 14:47] LABS: BACTERIA,URINE NEGATIVE /HPF; SQUAMOUS EPITHELIAL CELL,UR RARE /HPF
[2022-09-27] MEDS ORDERED: MULTIVITAMIN PATCH TD (14:53)
[2022-09-27] MEDS ORDERED: FERR-84 PO (14:53)
--- NOTE | 2022-09-27 14:59 | Physical Therapy Pre-Op Eval ---
PT Pre-Surgical Assessment Type of Surgery Type of Surgery: Right TKA Prior Level of Function Current Living Status: Spouse Locomotion (Upon Admit): Independent Distance: unlimited Has 4WW and crutches. Will, need FWW for home use Subjective Entry Into Home: Stairs Without Railing Steps Into Home: 2 Steps Accessories: No Railing Motor Control Motor Control: Motor Control WNL ROM ROM: WFL, except focal deficit Right knee flexion 100 degrees; extension 5 degrees hyper extension Strength Strength: WFL Transfers Transfers (B, C, W/C) (FIM): 6 Gait Gait (FIM): 6 Gait Distance (FIM): 6 Distance: 150' Gait Assistive Device: None Right Lower Extremity: Right Full Weight Bearing Left Lower Extremity: Left Full Weight Bearing Treatment Rendered Treatment: Patient instructed in assistive device, supported ambulation. Patient instructed in and given written program of ROM and strengthening exercis es to be preformed post-op. Patient instructed in movement precautions where applicable. Patient demonstrates understandings of post-operative therapy protocol including gait pattern and exercise program. Pre-operative instruction completed; await physical therapy orders after surgery. Treatment Goal Met: Yes Assessment Goals Acheived: I Ambulation w/ FWW, Understands P-op Precaut, I Post-op Exercises Charges/GCodes Time In: 1430 Time Out: 1445 Total Billed Treatment Time: 15 Total Billed Treatment Visit, KAY QUIÑONES PT Sep 27, 2022 14:59
[2022-09-27 15:52] LABS: BASOPHILS % (AUTO) 1 % (0-10); EOSINOPHILS # (AUTO) 0.1 10^3/uL (0.0-0.3); EOSINOPHILS % (AUTO) 2 % (0-10); HEMATOCRIT 39 % (35-52); LYMPHOCYTES # (AUTO) 2.8 X 10^3 (1.0-4.0); LYMPHOCYTES % (AUTO) 36 % (12-44); MEAN CORPUSCULAR HEMOGLOBIN 29 pg (25-34); MEAN CORPUSCULAR HGB CONC 33 g/dL (32-36); MEAN CORPUSCULAR VOLUME 87 fL (80-99); MEAN PLATELET VOLUME 10.2 fL (9.0-12.2); MONOCYTES # (AUTO) 0.6 X 10^3 (0.0-1.0); MONOCYTES % (AUTO) 8 % (0-12); NEUTROPHILS # (AUTO) 4.2 X 10^3 (1.8-7.8); NEUTROPHILS % (AUTO) 55 % (42-75); PLATELET COUNT 253 10^3/uL (130-400); WHITE BLOOD COUNT 7.8 10^3/uL (4.3-11.0)
[2022-09-27 15:56] LABS: ALBUMIN 4.3 GM/DL (3.2-4.5); INR 0.9 (0.8-1.4); POTASSIUM 3.6 MMOL/L (3.6-5.0); PROTHROMBIN TIME PATIENT 12.2 SEC (12.2-14.7)
[2022-09-27 15:57] LABS: CALCIUM 9.3 MG/DL (8.5-10.1)
[2022-09-27 15:58] LABS: TOTAL PROTEIN 6.7 GM/DL (6.4-8.2)
[2022-09-27 16:00] LABS: BILIRUBIN,TOTAL 0.3 MG/DL (0.1-1.0)
[2022-09-27 16:02] LABS: CREATININE SERUM 0.7 MG/DL (0.60-1.30)
[2022-09-27 16:12] LABS: ERYTHROCYTE SEDIMENTATION RATE 9 MM/HR (0-30)
--- NOTE | 2022-09-27 17:15 | Diagnostic Imaging Report ---
EXAMINATION: Chest 2 view. HISTORY: Preop. COMPARISON: None available. FINDINGS: Heart size and pulmonary vasculature are normal. The lungs are clear without consolidation, pleural effusion or pneumothorax. Degenerative changes of the thoracic spine. Osseous structures are otherwise intact. IMPRESSION: No acute radiographic abnormality in the chest. Dictated by: Dictated on workstation # [id number]
== END 2022-09-28 07:30 ==
LOC: PREOP 13:07
PROVIDERS: ATTEND Orthopaedic Surgery
DX: Z01.818 Encounter for other preprocedural examination (principal); M17.11 Unilateral primary osteoarthritis, right knee
CPT/HCPCS: 36415; 71046; 80053; 81000; 82308; 85025; 85610; 85652; 86850; 86900; 86901; 87081; 93005

== ENCOUNTER 2022-10-03 06:04 | Inpatient (IN) | payer OTHER ==
--- NOTE | 2022-09-28 09:17 | HISTORY AND PHYSICAL ---
DATE OF SERVICE: 10/03/2022 This is an inpatient admission on 10/03/2022 for right total knee arthroplasty. The patient will require regular inpatient admission due to need for physical therapy and pain management. HISTORY OF PRESENT ILLNESS: The patient is a 56-year-old female with longstanding right knee pain. Radiographs reveal severe medial, lateral and patellofemoral arthrosis. She has undergone treatment with arthroscopy as well as injections, which are no longer effective. Due to functional impairment and failure to improve with conservative measures, the patient elected to proceed with total knee arthroplasty. REVIEW OF SYSTEMS: No chest pain, no shortness of breath. No dysuria. PAST MEDICAL HISTORY: Breast cancer, hypertension. PAST SURGICAL HISTORY: Right ankle, breast reduction, lumpectomy with reconstruction, Gisela-en-Y for weight loss, bilateral knee arthroscopies, cholecystectomy. SOCIAL HISTORY: Significant for ischemic heart disease. PRIMARY CARE PROVIDER: Dr. Hdz. MEDICATIONS: Letrozole, Vitamin D, vitamin B complex, calcium, acyclovir, Claritin, multivitamin, rosuvastatin. ALLERGIES: No known drug allergies. SOCIAL HISTORY: The patient drinks alcohol socially and denies tobacco use. PHYSICAL EXAMINATION: GENERAL: The patient is well-developed, well-nourished, in no acute distress. HEENT: Normocephalic, atraumatic. Pupils are equal, round and reactive to light. Oropharynx is clear. NECK: Supple, with no lymphadenopathy. LUNGS: Clear to auscultation bilaterally. HEART: Regular rate and rhythm. ABDOMEN: Soft, nontender, nondistended. EXTREMITIES: The right knee demonstrates moderate effusion. She is tender along her medial and lateral joint line. She has pain medially with Wan's. She has patellofemoral crepitus and pain with patellar loading. IMPRESSION: Right knee osteoarthritis, unresponsive to conservative measures. PLAN: Right total knee arthroplasty. The risks, benefits, options, ramifications and recovery were discussed at length with the patient. She understands and wishes to proceed. Job ID: [id number] DocumentID: [id number] Dictated Date: 09/17/2022 12:31:32 Dust Mop Maker Date: 09/17/2022 14:03:00 Dictated By: LU KUMAR MD
[~2022-10-03] VITALS: Ht 172.7 cm; Wt 123.6 kg
[2022-10-03] VITALS (12 sets, daily range): BP systolic 93–133; BP diastolic 54–80
[~2022-10-03 06:04] MED LIST changes: +FERR-84 PO; +MULTIVITAMIN PATCH TD
--- OUTSIDE RECORDS SUMMARY | 2022-10-03 06:07 | XMS REPORT | Encounter Summary ---
Author Author [facility] Organization [facility] Address Unknown Phone Unavailable Care Team Providers Care Casing Soaker Name Role Phone WestClarence Josey DO Unavailable Carisa Bain PA-C Unavailable [phone] Sherif Wallace DO PCP Jh Irizarry MD Unavailable Mychart, Generic Provider Unavailable Unavailable Chuy Kidd RN Unavailable Unavailable Xenia Pugh RN Unavailable Unavailable Ellen Dykes RN Unavailable Unavailable Triny Oconnor RN Unavailable Unavailable Reason for Visit * Reason Comments Cardiac Clearance Knee surgery Encounter Details Care Team Description Date Type Department Nataly Chapman BSN Cardiac Clearance (Knee surgery) 09/10/2022 Documentation Cardiology: [facility]-[address] [place] [id number] Social History Date Tobacco Use Types Packs/Day Years Used Smoking Tobacco: Never Smokeless Tobacco: Never Comments Alcohol Use Standard Drinks/Week on occasion-rare Yes 0 (1 standard drink = 0.6 o z pure alcohol) Date Recorded PHQ-2 Answer 09/07/2022 PHQ-2 Score 0 Date Recorded Alcohol Use Answer Alcohol Use Yes Male: 9+ ounces (15+ Standard Drinks) per week Not o n file Threshold Female: 4.8+ ounces (8+ Standard Drinks) per week 0 Threshold Date Recorded Sex and Gender Information Value 07/22/2019 4:26 PM CDT Sex Assigned at Female 06/30/2018 3:51 PM CDT Gender Identity Female Sexual Orientation Not on file Date Recorded COVID-19 Exposure Response 09/07/2022 3:12 PM CDT In the last 10 days, have you been in contact with N o / Unsure someone who was confirmed or suspected to have Coronavirus/COVID-19? documented as of this encounter Functional Status Date of Assessment Functional Status Response 05/28/2022 Does the patient have a hearing impairment: No 05/28/2022 Does the patient have a visual impairment: No - None 05/28/2022 Does the patient have impaired ambulation: No 05/28/2022 Does the patient have an activity of daily living No (ADL) impairment: 05/28/2022 Does the patient have an instrumental activity of No daily living (IADL) impairment: Date of Assessment Cognitive Status Response 05/28/2022 Does the patient have a cognitive impairment: No documented as of this encounter Progress Notes * Nataly Chapman BSN - 09/10/2022 1:08 PM CDT 09/10/22 1230 AVB letter faxed to Dr. Hodge at [phone]. Sent pt my chart ms castillo this was faxed. documented in this encounter Plan of Treatment Not on filedocumented as of this encounter Goals Goal Patient Associated Recent Progress Patient-Stat Aut hor Goal Type Problems ed? LDL < 100 Lab 101 (04/06/2022 No Leana, Results 10:55 AM METAL SPRAYING MACHINE OPERATOR) MILY Mack Weight (lbs) < 90.7 kg (200 Weight 112.9 kg (09/07/2022 No Warren, lb) 3:20 PM CDT) MILY Choudhary documented as of this encounter Visit Diagnoses Not on filedocumented in this encounter Additional Health Concerns Noted Time Assessment 05/28/2022 2:23 PM METAL SPRAYING MACHINE OPERATOR A fall risk assessment has been complet ed for the patient 09/07/2022 3:15 PM CDT PHQ-2 Depression Total Score: 0 documented as of this encounter Care Teams Start Date End Date Casing Soaker Relationship Specialty 06/15/15 Sherif Wallace DO PCP - General Family Medicine [address] [place] [address] 05/30/15 Clarence West DO Surgery [address] [place] [address] 06/13/15 Carisa Bain, Surgical PA-C Oncology [address] [facility] [place], [place] [id number] 06/17/15 Jh Irizarry MD Plastic Surgery [address] [place] [address] 07/11/15 Mychart, Generic Provider 07/14/15 Chuy Kidd, RN 07/29/15 Xenia Pugh, MILY 08/04/15 Ellen Dykes, MILY 08/22/15 Triny Oconnor, MILY documented as of this encounter
--- OUTSIDE RECORDS SUMMARY | 2022-10-03 06:07 | XMS REPORT | Encounter Summary ---
Author Author [facility] Organization [facility] Address Unknown Phone Unavailable Care Team Providers Care Nurse Plastics Name Role Phone Clarence West Josey DO Unavailable Carisa Bain PA-C Unavailable [phone] Sherif Wallace DO PCP Jh Irizarry MD Unavailable Mychart, Generic Provider Unavailable Unavailable Chuy Kidd RN Unavailable Unavailable Xenia Pugh RN Unavailable Unavailable Ellen Dykes RN Unavailable Unavailable Triny Oconnor RN Unavailable Unavailable Encounter Details Care Team Description Date Type Department 09/07/2022 Travel Social History Date Tobacco Use Types Packs/Day [...] impairment: No documented as of this encounter Plan of Treatment Not on filedocumented as of this encounter Goals Goal Patient Associated Recent Progress Patient-Stat Aut hor Goal Type Problems ed? LDL < 100 Lab 101 (04/06/2022 No Leana, Results 10:55 AM CORPORATE SECURITY OFFICER) MILY Mack Weight (lbs) < 90.7 kg (200 Weight 112.9 kg (09/07/2022 No Warren, lb) 3:20 PM CDT) MILY Choudhary documented as of this encounter Visit Diagnoses Not on filedocumented in this encounter Additional Health Concerns Noted Time Assessment 05/28/2022 2:23 PM CORPORATE SECURITY OFFICER A fall risk assessment has been complet ed for the patient 09/07/2022 3:15 PM CDT PHQ-2 Depression Total Score: 0 documented as of this encounter Care Teams Start Date End Date Nurse Plastics Relationship Specialty 06/15/15 Sherif Wallace DO PCP - General Family [facility] [address] [place], [place] [id number] 05/30/15 Clarence West DO Surgery [address] [place] [address] 06/13/15 Carisa Bain, Surgical PA-C Oncology [address] [place], [place] [id number] 06/17/15 Jh Irizarry MD Plastic Surgery [address] [place] [address] 07/11/15 Aliciat, Generic Provider 07/14/15 Chuy Kidd, RN 07/29/15 Xenia Pugh, MILY 08/04/15 Ellen Dykes, MILY 08/22/15 Triny Oconnor, MILY documented as of this encounter
--- OUTSIDE RECORDS SUMMARY | 2022-10-03 06:07 | XMS REPORT | Encounter Summary ---
Author Author [facility] Organization [facility] Address Unknown Phone Unavailable Care Team Providers Care Materials Handler Name Role Phone Clarence West Josey DO Unavailable Carisa Bain PA-C Unavailable [phone] Sherif Wallace DO PCP Jh Irizarry MD Unavailable Mychart, Generic Provider Unavailable Unavailable Chuy Kidd RN Unavailable Unavailable Xenia Pugh RN Unavailable Unavailable Ellen Dykes RN Unavailable Unavailable Triny Oconnor RN Unavailable Unavailable Reason for Visit * Reason Onset Date Comments Pre-Visit Planning 09/06/202209/07 Dr Jenise Jenkins Encounter Details Care Team Description Date Type Department Eliel Burden MD [address] [place] [address] Pre-Visit Planning (09/07 Dr Jenise Jenkins) 09/06/2022 Telephone Pulmonology: [facility] [address] [facility]. [address], [address] [address] Social History Date Tobacco Use Types Packs/Day [...] Identity Female Sexual Orientation Not on file documented as of this encounter Functional Status [...] impairment: No documented as of this encounter Miscellaneous Notes * Telephone Encounter - Oskar Soria RN - 09/06/2022 11:27 AM CDT Images from the original note were not included. - An encounter has been created for documentation only (often for preparation o f an upcoming appointment or for follow up on orders/imaging or records received ) and patient does not need to contact the RN and did not miss a phone call or a ppointment. - Pre-visit planning for 09/[address] Eliel Burden. NEW Referral from Stan Mckeon MD For Sleep Evaluation - Dxes: KAVIN, Nocturnal Hypoxemia, Obesity, Essential HTN & Rt Atrial & Ventricular Enlargement. HST: 05/12/2022 AHI: 12.2 < 88% = 11.0 min. Lowest Sat = 70.5 % documented in this encounter Plan of Treatment Not on filedocumented as of this encounter Goals Goal Patient Associated Recent Progress Patient-Stat Aut hor Goal Type Problems ed? LDL < 100 Lab 101 (04/06/2022 No Leana, Results 10:55 AM ASSEMBLER FILTERS) MILY Mack Weight (lbs) < 90.7 kg (200 Weight 112.9 kg (09/07/2022 No Warren, lb) 3:20 PM CDT) MILY Choudhary documented as of this encounter Visit Diagnoses Not on filedocumented in this encounter Additional Health Concerns Noted Time Assessment 05/28/2022 2:23 PM ASSEMBLER FILTERS A fall risk assessment has been complet ed for the patient 02/14/2022 10:52 AM ASSEMBLER FILTERS PHQ-2 Depression Total Score: 0 documented as of this encounter Care Teams Start Date End Date Materials Handler Relationship Specialty 06/15/15 Sherif Wallace DO PCP - General Family Medicine [address] [place] [address] 05/30/15 Clarence West DO Surgery [address] [place] [address] 06/13/15 Carisa Bain, Surgical PA-C Oncology [address] [place] [address] 06/17/15 Jh Irizarry MD Plastic Surgery [address] [place] [address] 07/11/15 Mychart, Generic Provider 07/14/15 Chuy Kidd, RN 07/29/15 Xenia Pugh, MILY 08/04/15 Ellen Dykes, MILY 08/22/15 Triny Oconnor, MILY documented as of this encounter
--- OUTSIDE RECORDS SUMMARY | 2022-10-03 06:07 | XMS REPORT | Encounter Summary ---
Author Author [facility] Address Unknown Phone Unavailable Care Team Providers Care Leveling Machine Operator Name Role Phone BrettClarence Josey DO Unavailable Carisa Bain PA-C Unavailable [phone] Sherif Wallace DO PCP Jh Irizarry MD Unavailable Mychart, Generic Provider Unavailable Unavailable Chuy Kidd RN Unavailable Unavailable Xenia Pugh RN Unavailable Unavailable Ellen Dkyes RN Unavailable Unavailable Triny Oconnor RN Unavailable Unavailable Reason for Visit * Reason Comments Follow Up * Consult, Test & Treat (Routine) - New Request Diagnoses / Procedures Referred By Contact Referred To Conta ct Specialty Diagnoses Obstructive sleep apnea (adult) (pediatric) Gely Perkins DO [address] [place] [address] Pulmonology Referral ID Status Reason Start Date Expiration Visits Vi sits Date Requested Authorized [id number] New Request 05/25/2022 05/25/2023 1 Encounter Details Care Team Description Date Type Department Eliel Burden MD [address] [place] [address] Obstructive sleep apnea (Primary Dx); Nocturnal hypoxemia due to obesity; Obesity, Class II, BMI 35-39.9 09/07/2022 Office Visit Pulmonology: Quivir a 3:40 PM [facility] [address] [place] [id number] Social History Date Tobacco Use Types Packs/Day Years Used Smoking Tobacco: Never Smokeless Tobacco: Never Tobacco Cessation: Counseling Given: Not Answered Comments Alcohol Use Standard Drinks/Week on occasion-rare [...] have Coronavirus/COVID-19? documented as of this encounter Last Filed Vital Signs Reading Time Taken Comments Vital Sign 115/68 09/07/2022 3:20 PM CDT Blood Pressure 80 09/07/2022 3:20 PM CDT Pulse 36.6 C (97.9 F) 09/07/2022 3:20 PM CDT Temperature 16 09/07/2022 3:20 PM CDT Respiratory Rate 99% 09/07/2022 3:20 PM CDT Oxygen Saturation - - Inhaled Oxygen Concentration 112.9 kg (248 lb 12.8 oz) 09/07/2022 3:20 PM CDT Weight 170.2 cm (5' 7") 09/07/2022 3:20 PM CDT Height 38.97 09/07/2022 3:20 PM CDT Body Mass Index documented in this encounter Functional Status Date of Assessment [...] as of this encounter Progress Notes * Eliel Burden MD - 09/07/2022 3:40 PM CDT Images from the original note were not included. Date of Service: 09/07/2022 Sherif Wallace DO [address] [place] [address] Dear Caroline Winston Evette Cheng is a very pleasant 56 y.o. female [facility] evaluation of Sleep Problem. Subjective: History of Present Illness Patient had a sleep study done in 2019 that showed mild sleep apnea. Lost about 144 lbs of weight so far. A repeat sleep study was ordered by Cardiology, and this one again shows mild sl eep apnea. H/o high LDL and abnormal calcium score and has been on started on Crestor 10 mg daily. 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 Bedtime: 11 pm. No trouble falling sleep at night. Wake up: 6 am. Feels tired in the morning. Arousals: 1-2 times secondary to bathroom Stimulants/Sedatives: 2 cups of coffee per day. No sleep aids at night. Daytime naps/dozing: No regular naps during daytime. Sleep ROS: no snoring, no choking/gasping spells, dry mouth, no restless legs, n o sleep related hallucinations, no dream enactments, no sleep walking/eating, no sleep paralysis. ESS 09/07/2022: Wells Sleepiness Scale 09/05/2022 Sitting and reading 1 Watching TV 1 Sitting inactive in a public place (e.g. a theater or a meeting) 0 As a passenger in a car for an hour without a break 0 Lying down to rest in the afternoon when circumstances permit 1 Sitting and talking to someone 0 Sitting quietly after a lunch without alcohol 0 In a car, while stopped for a few minutes in traffic 0 Wells Sleepiness Scale Score 3 Review of Systems Constitutional: Negative for unexpected weight change. HENT: Negative for congestion, sore throat and trouble swallowing. Respiratory: Negative for cough, choking, shortness of breath and wheezing. Neurological: Negative for dizziness and seizures. Psychiatric/Behavioral: Negative for hallucinations. The patient is not nervous/ anxious. All other systems reviewed and are negative. Pre-Visit planning: "NEW Referral from Stan Mckeon MD For Sleep Evaluation - Dxes: KAVIN, Nocturnal Hypoxemia, Obesity, Essential HTN & Rt Atrial & Ventricular Enlargement. HST: 05/12/2022 AHI: 12.2 < 88% = 11.0 min. Lowest Sat = 70.5 % " Medical History: Diagnosis Date Arthritis left knee Borderline systolic HTN GERD (gastroesophageal reflux disease) History of chemotherapy 2015 HLD (hyperlipidemia) Hypertension Hypothyroid Malignant neoplasm of lower-inner quadrant of right female breast ([facility]) 12/31 015 RIGHT BREAST Problem List: 2022-01: Hypercholesterolemia 2021-12: Symptomatic cholelithiasis 2018-10: S/P gastric bypass 2018-09: Class 3 severe obesity due to excess calories with serious comorbidity and body mass index (BMI) of 50.0 to 59.9 in adult ([facility]) 2018-06: Obstructive sleep apnea 2018-06: Obesity, Class II, BMI 35-39.9 2018-05: Gastroesophageal reflux disease without esophagitis 2018-05: Essential hypertension 2018-05: Class 2 severe obesity due to excess calories with serious comorbidity and body mass index (BMI) of 38.0 to 38.9 in adult ([facility]) 2015-05: Malignant neoplasm of lower-inner quadrant of right breast of female, estrogen receptor positive ([facility]) Surgical History: Procedure Laterality Date ANKLE SURGERY Right 1986 BREAST REDUCTION 1998 PORTACATH PLACEMENT 2016 removed later Right Radioactive Seed Localized Lumpectomy, [place] Lymph Node Biopsy Righ t 08/04/2015 Performed by Clarence West DO at [facility] OR Oncoplastic reduction-local tissue rearrangement and symmetry procedure for symmetry Case length=2.5 hours Bilateral 08/04/2015 Performed by Jh Irizarry MD at [facility] OR UPPER GASTROINTESTINAL ENDOSCOPY 2018 KNEE ARTHROSCOPY Left 07/2018 LAPAROSCOPIC GLORIA-EN-Y GASTROENTEROSTOMY WITH GASTRIC BYPASS AND SMALL INTES JUAN RECONSTRUCTION LESS THAN 150 CM N/A 10/27/2018 Performed by Gordon العلي II, MD at [facility] OR ESOPHAGOGASTRODUODENOSCOPY N/A 10/27/2018 Performed by Gordon العلي II, MD at [facility] OR LAPAROSCOPIC CHOLECYSTECTOMY N/A 01/19/2022 Performed by Julio Cesar Woody MD at [facility] OR COLONOSCOPY Family History Problem Relation Age of Onset Cancer Mother 71 vulvar Heart Attack Father Cancer-Colon Maternal Grandmother 30s Cancer Sister 41 cervical Cancer Paternal Grandfather brain Stroke Neg Hx Diabetes Neg Hx Social History Socioeconomic History Marital status: Tobacco Use Smoking status: Never Smokeless tobacco: Never Vaping Use Vaping Use: Never used Substance and Sexual Activity Alcohol use: Yes Comment: on occasion-rare Drug use: No Objective: acyclovir (ZOVIRAX) 400 mg tablet Take one tablet by mouth as Needed. ferrous sulfate (FEOSOL) 325 mg (65 mg iron) tablet Take one tablet by mouth daily. takes every third day HYDROcodone/acetaminophen (NORCO) 5/325 mg tablet letrozole (FEMARA) 2.5 mg tablet Take one tablet by mouth daily. loratadine (CLARITIN) 10 mg tablet Take one tablet by mouth daily as needed (allergic rhinnitis). rosuvastatin (CRESTOR) 10 mg tablet Take one tablet by mouth daily. vitamin D3-folic acid 5,000 unit- 1 mg tab TAKE 1 CAPSULE BY MOUTH ONCE ALBINA Y vitamins, multiple tablet Take one tablet by mouth daily. Vitals: 09/07/22 1520 BP: 115/68 Pulse: 80 Temp: 36.6 C (97.9 F) Resp: 16 SpO2: 99% PainSc: Seven Weight: 112.9 kg (248 lb 12.8 oz) Height: 170.2 cm (5' 7") Body mass index is 38.97 kg/m. Physical Exam Vitals reviewed. Constitutional: Appearance: Normal appearance. HENT: Head: Atraumatic. Nose: Nose normal. No congestion. Mouth/Throat: Mouth: Mucous membranes are moist. Pharynx: Oropharynx is clear. Comments: Mallampati 4, very crowded airway, no tonsils seen Eyes: Extraocular Movements: Extraocular movements intact. Conjunctiva/sclera: Conjunctivae normal. Cardiovascular: Rate and Rhythm: Normal rate and regular rhythm. Pulmonary: Effort: Pulmonary effort is normal. Skin: General: Skin is warm and dry. Neurological: Mental Status: He is alert and oriented to person, place, and time. Mental st atus is at baseline. Psychiatric: Behavior: Behavior normal. Thought Content: Thought content normal. Assessment and Plan: Problem List ENDOCRINE AND METABOLIC Obesity, Class II, BMI 35-39.9 Overview Per home sleep test 07/03/18 AHI 13.1 SLEEP Obstructive sleep apnea Overview Mild per home sleep test 07/03/18 Nocturnal hypoxemia as well AHI 13.1 Reviewed sleep study results with the patient, showing mild sleep apnea and Noct urnal Hypoxemia. Patient was counseled regarding the diagnosis of obstructive sl eep apnea. We discussed the importance of treating sleep apnea in preventing ad verse neurologic, endocrine and cardiovascular outcomes. Discussed treatment opt ions including oral appliance, oral surgery, weight loss, hypoglossal nerve stim ulator and CPAP. Patient is interested in oral device/continuous oral airway therapy (COAT). Cou nseled regarding the relative efficacy of oral device as compared to other sleep apnea therapies, the process that entails seeing a sleep qualified dentist for evaluation, ordering, fitting of an oral device. Benefits and potential side ef fects from oral device therapy including TMJ pain, tooth ache, oral ulcerations were discussed and advised that these can usually be mitigated/improved by a pro per fitting and adjustment of the oral device by the dentist. Information regard ing the sleep dentists in the area provided to patient in the chart. Patient un derstands that they have to make contact with 1 of these dentists or any sleep q ualified dentist of their choice, to get her oral device made. Once the device h as been finally adjusted, repeat home sleep apnea test should be done over the n ext 3 to 6 months to evaluate for resolution of sleep apnea/hypoxemia. Patient was also counseled on good sleep hygiene, non-supine sleep, avoidance of alcohol before bedtime, regular exercise as tolerated and weight loss to target body weight. Cautioned on the risks of operating motor vehicle or any heavy mac hinery when sleepy and advised against drowsy driving. Ample opportunity was provided for questions and concerns. Patient is aware they can contact our office via phone or mychart for any further queries. Thank you for the opportunity to participate in the care of this patient. We nain l continue to follow them in Sleep Medicine clinic. Sincerely, Eliel Burden MD Sleep Roller MechanicMaterial Handler [facility] Total Time Today was 45 minutes in the following activities: Preparing to see th e patient, Obtaining and/or reviewing separately obtained history, Performing a medically appropriate examination and/or evaluation, Counseling and educating th e patient/family/caregiver, Documenting clinical information in the electronic o r other health record, and communicating results to the patient/family/caregiver and Care coordination. documented in this encounter Miscellaneous Notes * Patient Instructions - Oskar Soria RN - 09/07/2022 3:40 PM CDT Images from the original note were not included. - If you need to schedule or reschedule an appointment, please call . - For any urgent issues after business hours, please call and hav e the search engine optimization consultant pulmonary physician paged. - If you have any questions regarding your appointment or any concerns, please c ontact my sleep care nurse at [phone]. -Refills on medications, please have your pharmacy fax a refill authorization re quest form to our office at Fax) [phone]. Please allow at least 3 business days for refill requests. >>>>>>>>>>>>>>>>>>>>>>>>>>>>>>>>>>>>>>>>> Please contact one of the dentist's offices listed below and schedule a visit to discuss oral appliance as an alternate option to treat you sleep apnea. Dr Ruth De Los Santos [phone] [facility] Dr Steven Whalen [phone] Orthodontics [facility]ofacial [facility]oped[facility] [address] Dr. Bam Schrader ph [phone] [facility] and [facility] Dr. Albaro Ceja - [facility] Dr. Gely Vela ph [phone]- Has multiple providers in office called [facility]. [facility] [place] ( multiple providers in this office) [place] [address] [employer] [employer] has a list of dental providers for ora l appliance that you can search for in your area: [email or web address]. >>>>>>>>>>>>>>>>>>>>>>>>>>>>>>>>>>>>>>>>>>>>>>>>>>>>>> Oral Appliance Information ICD-10 Diagnosis Code for Obstructive Sleep Apnea: G47.33 Code for Oral Appliance: E0486 Oral appliances are a front-line treatment for snoring and mild to moderate obst ructive sleep apnea. This small plastic device fits in the mouth during sleep li ke a sports mouth guard or orthodontic retainer. Oral appliances help prevent th e collapse of the tongue and soft tissues in the back of the throat, keeping the airway open during sleep and promoting adequate air intake. Oral appliances may be used alone or in combination with other treatments for sleep-related breathi ng disorders, such as weight management, surgery or CPAP. Call your health insurance and see if an oral appliance for sleep apnea is a cov ered benefit. (Codes listed above). If it is a covered benefit, find out what dentists are in-network for your insur [facility]. A list of Dentist's that are certified by the [employer] can be found at http://www.aadsm.org/FindADentist.aspx?1 We are happy to suggest at dentist experienced in dental sleep medicine. Once you have selected a dentist call and let nurse know at [phone] and she will send a referral and a copy of your sleep study. If the oral appliance works for you, once the dentist is finished with any adjus tments, we recommend repeating overnight testing to document resolution of sleep apnea, this will be coordinated through Dr. Nelson and your dentist. These are some examples of an Oral Appliance made for Sleep Apnea. documented in this encounter Plan of Treatment Not on filedocumented as of this encounter Goals Goal Patient Associated Recent Progress Patient-Stat Aut hor Goal Type Problems ed? LDL < 100 Lab 101 (04/06/2022 No Leana, Results 10:55 AM COGNOS ANALYST) MILY Mack Weight (lbs) < 90.7 kg (200 Weight 112.9 kg (09/07/2022 No Warren, kelle) 3:20 PM CDT) MILY Choudhary documented as of this encounter Visit Diagnoses Diagnosis Obstructive sleep apnea - Primary Obstructive sleep apnea (adult) (pediat joe) Nocturnal hypoxemia due to obesity Obesity, unspecified Obesity, Class II, BMI 35-39.9 Morbid obesity documented in this encounter Historical Medications * This list may reflect changes made after this encounter. Start Date End Date Medication Sig Dispensed Refills 09/07/2022 HYDROcodone/acetaminophen 0 (NORCO) 5/325 mg tablet added in this encounter Additional Health Concerns Noted Time Assessment 05/28/2022 2:23 PM COGNOS ANALYST A fall risk assessment has been complet ed for the patient 09/07/2022 3:15 PM CDT PHQ-2 Depression Total Score: 0 documented as of this encounter Care Teams Start Date End Date Leveling Machine Operator Relationship Specialty 06/15/15 Sherif Wallace DO PCP - General Family Medicine [address] [place] [address] 05/30/15 Clarence West DO Surgery [address] [place] [address] 06/13/15 Carisa Bain, Surgical PA-C Oncology [address] [place] [address] 06/17/15 Jh Irizarry MD Plastic Surgery [address] [place] [address] 07/11/15 Mychart, Generic Provider 07/14/15 Chuy Kidd RN 07/29/15 Xenia Pugh RN 08/04/15 Ellen Dykes RN 08/22/15 Triny Oconnor, MILY documented as of this encounter
--- OUTSIDE RECORDS SUMMARY | 2022-10-03 06:07 | XMS REPORT | Clinical Summary ---
Author [facility] Address Unknown Phone Unavailable Care Team Providers Care Welding Machine Operator Electron Beam Name Role Phone WestClarence Josey DO Unavailable Carisa Bain PA-C Unavailable [phone] Sherif Wallace DO PCP hJ Irizarry MD Unavailable Mychart, Generic Provider Unavailable Unavailable Chuy Kidd RN Unavailable Unavailable Xenia Pugh RN Unavailable Unavailable Ellen Dykes RN Unavailable Unavailable Triny Oconnor RN Unavailable Unavailable Source Comments Some departments are not documenting in the electronic medical record. If you d o not see the information that you expected, contact Release of Information in [facility] Information Management department at [phone] for further assistan ce in locating additional records[facility] Allergies Comments Active Allergy Reactions Criticality Noted Date Gloria En Y procedure on 10/27/18. Aspirin STOMACH UPSET Medium 10/27/2018 Gloria En Y procedure on 10/27/18. Nsaids (Non-Steroidal STOMACH UPSET Medium 10/28/19 19 Anti-Inflammatory Drug) Medications End Date Status Medication Sig Dispensed Refills Start Date Active loratadine (CLARITIN) 10 Take one 0 mg tablet tablet by mouth daily as needed (allergic rhinnitis). Active vitamins, multiple tablet Take one 0 tablet by mouth daily. Active vitamin D3-folic acid TAKE 1 0 06/01/19 2 5,000 unit- 1 mg tab CAPSULE BY 0 MOUTH ONCE DAILY Active ferrous sulfate (FEOSOL) Take one 0 325 mg (65 mg iron) tablet by tablet mouth daily. takes every third day Active acyclovir (ZOVIRAX) 400 Take one 60 tablet 3 mg tablet tablet by 3 mouth as Needed. Active letrozole (FEMARA) 2.5 mg Take one 90 tablet 1 tablet tablet by 3 mouth daily. Active rosuvastatin (CRESTOR) 10 Take one 90 tablet 3 mg tablet tablet by 3 mouth daily. Active HYDROcodone/acetaminophen 0 (NORCO) 5/325 mg tablet 3 Active Problems Problem Noted Date Diagnosed Date Hypercholesterolemia 02/14/2022 Symptomatic cholelithiasis 01/19/2022 S/P gastric bypass 11/07/2018 Overview: Lap RYGB 10/27/18 (Dr. العلي) Baseline BMI: 56.12 Obesity-related comorbidities of Pre-Di abetes, Hypertension (resolved), Risk factors for Obstructiv e Sleep Apnea, Low back pain and GERD (resolved) Obstructive sleep apnea 07/17/2018 Overview: Mild per home sleep test 07/03/18 Nocturnal hypoxemia as well AHI 13.1 Obesity, Class II, BMI 35-39.9 07/17/2018 Overview: Per home sleep test 07/03/18 AHI 13.1 Essential hypertension 06/19/2018 Class 2 severe obesity due to excess calories with se rious 06/16/2018 comorbidity and body mass index (BMI) o f 38.0 to 38.9 in adult Overview: Bariatric Surgery Checklist: Pre-Appoin tment Initial consult date: 06/19/18 Surgeon seen at initial consultation:Dr Latesha العلي New patient orientation attendance type : Online Smoking History: No Surgery Payment Type: Insurance Type of insurance: [facility] Number of Medically Supervised Diet Vis its Required:0 Dietitian Evaluation: Referral placed Psychological Evaluation: Referral plac ed Surgeon Notes: Consults Placed by surgeon at initial c onsult: Sleep, psych Candidate Eligibility Location: Unsure Additional notes: Bariatric Surgery Checklist: Post-Appoi ntment Initial Consult BMI: 56.1 Procedure: RNY Location Eligibility: Unsure KAVIN testing required: Yes KAVIN testing completed: Yes - does not r equire CPAP HST done on 07/03/18 showed mild KAVIN wit h AHI of 13.1 Plan to treat with weight loss surgery Dx: G47.33 KAVIN, G47.36 nocturnal hypoxe arturo Monitor carefully post op EGD Required: No Anesthesia review needed: Yes Extended VTE prophylaxis needed: Yes Additional notes: Malignant neoplasm of lower-inner quadrant of right b reast 06/13/2015 of female, estrogen receptor positive Cancer Staging: Clinical: Stage IIA (T2 , N0, cM0) - Signed by Carisa Aleman PA-C on 06/15/2015 Pathologic: Stage IIA (T2, N0, cM0) - S igned by Carisa Aleman PA-C on 08/16/2015 Overview: DIAGNOSIS: Right grade 2 IDC (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 Cheng is a fe male who presented to [facility] on 6 at age 49 for evaluation of right breast cancer. She first felt a lump in the right breast in the summer of 2014, but thought it was scar tissue from her previous reduction . When the area began to enlarge she called her PCP who sent her for imaging. Right breast sono-guided biopsy 5 ([place], [place]) revealed grade [address] yfn. CT chest/abdomen 01/18/15 ([place], [place]) revealed no ev idence of metastasis. On the chest CT there was a 5.1 cm mass in the right breast that did not extend into the skin or mu scle. There were no significantly enlarged lymph nodes in t he axilla. The most prominent lymph node was an 8 mm infrac arinal lymph node that was most likely reactive. Bone sca n ([place], [place]) 01/21/15 revealed no evidence of metast asis. Ms. Cheng underwent right RSL lumpectomy/SLNB/onc oplastic tissue rearrangement on 08/04/15. Final patholog y revealed a 4 cm tumor bed with 3.1 cm residual tumor; 6 0% viable cancer cellularity; all margins at least 1 cm; LVI absent; 2 negative SLNs. She finished radiation therapy with Dr. Gale in 10/2015. She started Tamoxife n in 10/2015. BREAST IMAGING: Mammogram: -- Bilateral diagnostic mammogram 01/18 ([place], [place]) revealed a 6.2 cm lobulated mass in the right inferior and medial breast. There were no left breas t abnormalities. -- Bilateral diagnostic mammogram () revealed the known cancer in the deep right medial b reast, measuring 3.1 cm. A clip was seen on the anterior asp ect. No additional masses were seen. The left breast was u nremarkable. -- Bilateral diagnostic mammogram 03/15 () revealed scattered areas of fibroglandular densi ty. There were post therapeutic changes seen. No masses, d ensities or calcifications to suggest malignancy. No change when compared to prior studies. Ultrasound: -- Right breast ultrasound 01/18/15 ([place], [place]) revealed a 4.5 cm hypoechoic mass with lobulated margins and internal vascularity at 4:30, 8-10 cm FTN. -- Right breast ultrasound 03/14/15 ([place], [place]) revealed a 3.9 cm hypoechoic mass at 4:30, 10 cm FTN compared to 4.5 cm previously. -- Right breast ultrasound 04/22/15 ([place], [place]) revealed a 3.2 cm mass at 4:30 compared to 3.9 c m previously. There was decreased vascularity with color Do ppler. -- Right breast ultrasound 06/15/15 () revealed the known cancer right breast 4:30, 10 cm FTN, cu rrently measuring 2.4 cm. No additional masses were seen. Ambreen luation of the axilla showed no adenopathy. -- Right breast ultrasound 11/19/16 ([place], [place]) revealed a partial fluid collection that was sta ble in size measuring 2.5 x 1.1 cm at 4:00. Overall, there w as slightly more echogenic material, likely representing resolving seroma and/or hematoma. There was no abnormal blood flow. The adjacent smaller seroma was no longer s een on this follow up study. BIRAD 3. 6 month follow up was recommended. REPRODUCTIVE HEALTH: Age at first Menarche: 14 Age at First Live : N/A Age at Menopause: premenopausal : 1 Para: 0 : N/A PROCEDURE: 1. Bilateral breast reduction, 1997 2. Right RSL lumpectomy/SLNB/oncoplasti c tissue rearrangement, 08/04/15 PERTINENT PMH: Hypothyroidism, HLD, bor derline HTN FAMILY HISTORY: No family history of br east, ovarian, or pancreatic cancer. Maternal great uncle with prostate cancer in 70s PHYSICAL EXAM on PRESENTATION: Left - E xam consistent with previous reduction. No palpable masses. Right - Exam consistent with previous reduction. Thi ckening at 4:30 with no discrete mass. No supraclavicular or axillary adenopathy. MEDICAL ONCOLOGY: Dr. Deidra Castellano [place] ESENT THERAPY: Neoadjuvant AC/taxol, finished 07/15/15. Tamoxifen started 10/2015 - switched to letrozole REFERRED BY: Dr. Deidra Castellano Resolved Problems Resolved Date Problem Noted Date Diagnosed Date 12/04/2018 Class 3 severe obesity due to excess calories with se rious 10/27/2018 comorbidity and body mass index (BMI) o f 50.0 to 59.9 in adult 04/14/2019 Gastroesophageal reflux disease without esophagitis 06/19/2018 Encounters Care Team Description Date Type Department Nataly Chapman BSN Cardiac Clearance (Knee surgery) 09/10/2022 Documentation Cardiology: [place] [facility] [place] [address] [facility] [place] [id number] Eliel Burden MD Obstructive sleep apnea (Primary Dx); Nocturnal hypoxemia due to obesity; Obesity, Class II, BMI 35-39.9 09/07/2022 Office Visit Pulmonology: Jerardo herrera 3:40 PM [facility] [address] [place] [phone] 09/07/2022 Travel Eliel Burden MD Pre-Visit Planning (09/07 Dr Burden Appt) 09/06/2022 Telephone Pulmonology: [facility]e [facility] [address] [address] Leyda Barker RN Pre-op Clearance (Requested to TKR) 09/05/2022 Documentation Cardiology: [facility] [place], [address] [place] [address] from Last 3 Months Surgical History Surgery Date Site/Laterality Comments PORTACATH PLACEMENT 04/01/2015 - removed later 03/31/2016 BREAST REDUCTION 04/01/1997 - 03/31/1998 ANKLE SURGERY 04/01/1985 - Right 03/31/1986 BREAST LUMPECTOMY 08/04/2015 Breast/Right Right Radioa ctive Seed Localized Lumpectomy, Quail Lymph Node Biopsy performed by Clarence West DO at [facility] OR/PERI Medical devices from this surgery are i n the Medical Devices section. BREAST REDUCTION 08/04/2015 Breast/Bilatera Oncoplastic reduction-local tissue rearrangement l and symmetry procedure for symmetry Case length=2.5 hours performed by Jh Irizarry MD at [facility] OR/PERIOP Medical devices from this surgery are i n the Medical Devices section. KNEE ARTHROSCOPY 07/30/2018 - Left 08/29/2018 UPPER GASTROINTESTINAL 04/01/2017 - ENDOSCOPY 03/31/2018 COLONOSCOPY BARIATRIC SURGERY 10/27/2018 N/A LAPAROSCOPIC GLORIA-EN-Y GASTROENTEROSTOMY WITH GASTRIC BYPASS AND SMALL INTESTINE WALTER NSTRUCTION LESS THAN 150 CM performed by Gordon العلي II, MD at [facility] OR/PERIOP UPPER GASTROINTESTINAL 10/27/2018 N/A ESOPHAG OGASTRODUODENOSCOPY performed by Severiano, ENDOSCOPY Gordon Jaimes II, MD at [facility] OR/ PERIOP LAP CHOLECYSTECTOMY 01/19/2022 Abdomen/N/A LAPAROSCOP IC CHOLECYSTECTOMY performed by Julio Cesar Woody MD at [facility] OR Medical History Medical History Date Comments Hypothyroid HLD (hyperlipidemia) Borderline systolic HTN Hypertension Malignant neoplasm of lower-inner 12/2014 RIGH T BREAST quadrant of right female breast (HCC) History of chemotherapy 2015 GERD (gastroesophageal reflux disease) Arthritis left knee Family History Medical History Relation Name Comments Heart Attack Father Cancer-Colon Maternal 30s Grandmother Cancer Mother vulvar Cancer Paternal brain Grandfather Cancer Sister cervical Diabetes Neg Hx Stroke Neg Hx Relation Name Status Comments Father Alive Maternal Grandmother Mother Alive Paternal Grandfather Sister Social History Date Tobacco Use Types Packs/Day [...] was confirmed or suspected to have Coronavirus/COVID-19? Obstetrics History Last Filed Vital Signs Reading Time Taken [...] 09/07/2022 3:20 PM CDT Body Mass Index Plan of Treatment Health Maintenance Due Date Last Done Comments HIV SCREENING 1981 DTAP/TDAP VACCINES (1 - 1984 Tdap) HEPATITIS C SCREENING 1984 PHYSICAL (COMPREHENSIVE) 1984 EXAM COLORECTAL CANCER 10/07/2011 SCREENING SHINGLES RECOMBINANT 2016 VACCINE (1 of 2) CERVICAL CANCER SCREENING 05/28/2020 05/28/2017 INFLUENZA VACCINE (#1) 2022 01/05/2022, 01/27/2019 BREAST CANCER SCREENING 05/28/2023 05/28/2022, 05/11/2021, 04/14/2020, Additional history exists COVID-19 VACCINE Completed 01/05/2022, 09/20/2021, 01/12/2021, Additional history exists DEPRESSION SCREENING Completed 09/07/2022 PNEUMOCOCCAL VACCINE 0-64 Aged Out No longer el igible based on patient's age to YRS complete this topic Goals Goal Patient Associated Recent Progress Patient-Stat Aut hor Goal Type Problems ed? LDL < 100 Lab 101 (04/06/2022 No Leana, Results 10:55 AM STUNT DRIVER) MILY Mack Weight (lbs) < 90.7 kg (200 Weight 112.9 kg (09/07/2022 No Warren, lb) 3:20 PM CDT) MILY Choudhary Medical Devices Device Identifier Shelf Expiration Date Model / Serial / L ot Implanted Type Area Manufactur er 06/29/2016 [id number] / [id number] / [id number] Sealant Hstat Tisseel Frzn 4ml Right: Breast SOTO :BIO Implanted: Qty: 1 on 08/04/2015 by Clarence Youssef, DO at [facility] Results Not on filefrom Last 3 Months Insurance Type Payer Benefit Subscriber ID Effective Phone Address Plan / Dates Group CAROLINA FIGUEROA [id number] 2021-P [phone] [address] [facility] [address] [place] [address] (Home) [place] [address] Advance Directives 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 Date Inactivated Comments Code Status Date Activated 08/05/2015 12:57 PM Full Code 08/04/2015 6:56 PM Comments Question Answer Provider has No, discussion not necessar y based on Dx discussed Code Status w/Patient or Family? Care Teams Start Date End Date Welding Machine Operator Electron Beam Relationship Specialty 06/15/15 Sherif Wallace DO PCP - General Family [facility] [address] [place] [address] 05/30/15 Clarence West DO Surgery [address] [place] [address] 06/13/15 Carisa Bain, Surgical PA-C Oncology [address] [place], [place] [phone] 06/17/15 Jh Irizarry MD Plastic Surgery [address] [place] [phone] 07/11/15 Mychart, Generic Provider 07/14/15 Chuy Kidd, RN 07/29/15 Xenia Pugh, MILY 08/04/15 Ellen Dykes, MILY 08/22/15 Triny Oconnor, MILY
--- OUTSIDE RECORDS SUMMARY | 2022-10-03 06:07 | XMS REPORT | Encounter Summary ---
Author Author [facility] Organization [facility] Address Unknown Phone Unavailable Care Team Providers Care Buttermaker Name Role Phone Clarence West Josey DO Unavailable Carisa Bain PA-C Unavailable [phone] Sherif Wallace DO PCP Jh Irizarry MD Unavailable Mychart, Generic Provider Unavailable Unavailable Chyu Kidd RN Unavailable Unavailable Xenia Pugh RN Unavailable Unavailable Ellen Dykes RN Unavailable Unavailable Triny Oconnor RN Unavailable Unavailable Reason for Visit * Reason Comments Pre-op Clearance Requested to TKR Encounter Details Care Team Description Date Type Department Leyda Barker, MILY Pre-op Clearance (Requested to TKR) 09/05/2022 Documentation [facility]iology: [facility], [address] [place] [address]. [address] [place] [address] Social History Date Tobacco Use Types Packs/Day Years Used Smoking Tobacco: Never Smokeless Tobacco: Never Comments Alcohol Use Standard Drinks/Week on occasion-rare Yes 0 (1 standard drink = 0.6 o z pure alcohol) Date Recorded PHQ-2 Answer 02/14/2022 PHQ-2 Score 0 Date Recorded Alcohol Use [...] as of this encounter Progress Notes * Leyda Barker RN - 09/05/2022 12:34 PM CDT Message sent to Dr. Mckeon asking for his thoughts on surgical clearance for a ri ght TKR with [facility]. The paperwork to be signed is in the Dr. Jalloh t file to be signed. documented in this encounter Plan of Treatment Not on filedocumented as of this encounter Goals Goal Patient Associated Recent Progress Patient-Stat Aut hor Goal Type Problems ed? LDL < 100 Lab 101 (04/06/2022 No Leana, Results 10:55 AM LOCOMOTIVE PIPE FITTER) MILY Mack Weight (lbs) < 90.7 kg (200 Weight 112.9 kg (09/07/2022 No Warren, lb) 3:20 PM CDT) MILY Choudhary documented as of this encounter Visit Diagnoses Not on filedocumented in this encounter Additional Health Concerns Noted Time Assessment 05/28/2022 2:23 PM LOCOMOTIVE PIPE FITTER A fall risk assessment has been complet ed for the patient 02/14/2022 10:52 AM LOCOMOTIVE PIPE FITTER PHQ-2 Depression Total Score: 0 documented as of this encounter Care Teams Start Date End Date Buttermaker Relationship Specialty 06/15/15 Sherif Wallace DO PCP - General Family [address] [address] 05/30/15 Clarence West DO Surgery [address] [place] [address] 06/13/15 Carisa Bain, Surgical PA-C Oncology [address] [place], [place] [phone] 06/17/15 Jh Irizarry MD Plastic Surgery [address] [place] [address] 07/11/15 Mychart, Generic Provider 07/14/15 Chuy Kidd, RN 07/29/15 Xenia Pugh, MILY 08/04/15 Ellen Dykes RN 08/22/15 Triny Oconnor, MILY documented as of this encounter
[2022-10-03] MEDS ORDERED: CEFUROXIME INJECTION 1,500 MG in NS (IVPB) 50 ML IV ONE (06:15)
[2022-10-03] MEDS ORDERED: ROSU10TA28 PO (06:18)
[2022-10-03] MEDS: LACTATED RINGERS 1,000 ML IV PRN ×2 (06:40→09:35)
[2022-10-03] MEDS ORDERED: fentaNYL INJ 100 MCG/2 ML AMP ONE (06:58)
[2022-10-03] MEDS ORDERED: PROPOFOL INJECTION 50 ML IV ONE ×2 (06:58→08:23)
[2022-10-03] MEDS ORDERED: BUPIVACAINE 0.5% 30 ML (SENSORCAINE) VIAL ONE (07:00)
[2022-10-03] MEDS ORDERED: MIDAZOLAM 2 MG/2 ML (VERSED) VIAL ONE ×3 (07:01→08:22)
[2022-10-03] MEDS ORDERED: morphine INJ 10 MG/ML 1ML (SYR OR VIAL) IVP STA (07:13)
[2022-10-03] MEDS ORDERED: diphenhydrAMINE 50 MG/ML INJ (BENADRYL) IVP PRN (07:15)
[2022-10-03] MEDS ORDERED: NALOXONE 0.4 MG/ML 1 ML (NARCAN) VIAL IV PRN (07:15)
[2022-10-03] MEDS ORDERED: ONDANSETRON 4 MG/2 ML (SDV) Z0FRAN IVP PRN (07:15)
[2022-10-03] MEDS ORDERED: TRANEXAMIC ACID 100 MG/ML 10 ML INJECTION ONE (07:17)
[2022-10-03] MEDS ORDERED: INTRA-ARTICULAR IU ONE ×5 (07:30)
--- NOTE | 2022-10-03 07:32 | Progress Note-Pre Operative ---
Pre-Operative Progress Note Date of Available H&P: Sep 28, 2022 Date H&P Reviewed: Oct 03, 2022 Time H&P Reviewed: 07:11 Changes from last HP none Pre-Operative Diagnosis: right knee primary osteoarthritis LU KUMAR MD Oct 03, 2022 07:32
--- NOTE | 2022-10-03 07:34 | Progress Note-Post Operative ---
Post-Operative Progess Note Surgeon (s)/Disposal Worker (s) Surgeon LU KUMAR MD Disposal Worker: Nahun Mackenzie Pre-Operative Diagnosis right knee primary osteoarthritis Post-Operative Diagnosis right knee primary osteoarthritis Procedure & Operative Findings Date of Procedure 10/03/22 Procedure Performed/Findings right total knee arthroplasty Anesthesia Type spinal Estimated Blood Loss Estimated blood loss (mL): minimal Specimens/Packing Specimens Removed none Packing: none LU KUMAR MD Oct 03, 2022 07:34
--- NOTE | 2022-10-03 07:36 | D/C HH Face to Face Order ---
D/C Face to Face Orders Reconcile Patient Problems Problems Reviewed?: Yes Instructions for Patient Via [facility], Patient Instructions/FollowUp: three weeks Physician to follow Patient: three weeks Discharge Diet for Home: Regular Diet Patient Data-Allergies,Ht & Wt Patient Allergies: Coded Allergies: NSAIDS (Non-Steroidal Anti-Inflamma (Verified Allergy, Unknown, WEIGHT LOSS SURGERY, 10/03/22) Height (Feet): 5 Height (Inches): 8.00 Weight (Pounds): 390 Weight (Ounces): 0.0 Home Health Need/Face to Face Date of Face to Face: Oct 03, 2022 Clinical Findings: Muscle weakness, Pain with ambulation, Unsteady gait I have seen Pt [id number]: Yes Discharged To: Home Diagnosis/Conditions: right total knee arthroplasty Patient is Homebound due to: Pain w/ambulation Homebound Status Due to the above stated illness, injury or surgical procedure (medical condition or diagnosis) and associated clinical findings, the patient is homebound because of his/her inability to leave home except with aid of a supportive device and/or person AND leaving the home requires a considerable and taxing effort or is medically contraindicated. Pt req the following assistanc: Walker Home Health Nursing Orders Home Health Services Order: Physical Therapy-Evaluate & Treat DC right knee chelsea and apply steri strips 10/17/22 Home Health Infusion Therapy Line Start Date: Oct 03, 2022 Therapy Orders Therapy Orders: Physical Therapy, PT to assess for OT Therapy Specific Orders: Eval assistive deivces, Teach enviro modifications/safety, Gait training, Increase strength/endurance, Provider maintenance therapy, Restore ROM Certify Stmt I certify that this patient is under my care and that I, a nurse practitioner or a physician; a hospital nursing assistant working with me, had a face to face encounter that -me ets the physician face to face encounter requirements with this patient as dated. LU KUMAR MD Oct 03, 2022 07:36
--- NOTE | 2022-10-03 09:32 | Anesthesia-Regional Post-Op ---
Regional Patient Condition Mental Status: Alert, Oriented x3 Circulation: Same as Pre-Op Headache: Absent Sensation: Decreased Motor Block: Present Post Op Complications Complications None Follow Up Care/Instructions Patient Instructions None needed. Anesthesia/Patient Condition Patient is doing well, no complaints, stable vital signs, no apparent adverse anesthesia problems. No complications reported per nursing. TREVOR SERRANO CRNA Oct 03, 2022 09:32
--- NOTE | 2022-10-03 09:52 | Diagnostic Imaging Report ---
INDICATION: Status post total knee replacement. TIME OF EXAM: 9:34 AM. TECHNIQUE: Two views of the right knee were obtained. FINDINGS: Postop changes of total knee arthroplasty are noted. The prosthetic elements are in good position without fracture or loosening. There are overlying skin chelsea and soft tissue gas. IMPRESSION: Satisfactory postop appearance to the right knee. Dictated by: Dictated on workstation # [id number]
--- NOTE | 2022-10-03 10:05 | Progress Note ---
Standard Progress Note Progress Notes/Assess & Plan Date Seen by a Provider: Oct 03, 2022 Time Seen by a Provider: 10:04 Progress/Assessment & Plan post op check no complaints radiographs--HW well positioned without fracture RLE--2 plus DP pulse with brisck cap refill sensation intact to light touch throughout intact DF and PF of toes and ankle s/p RTKA mobilize as able LU KUMAR MD Oct 03, 2022 10:05
[2022-10-03] MEDS: NS IV 1000 ML 1,000 ML IV SCH ×2 (10:43→23:23)
--- NOTE | 2022-10-03 13:07 | OPERATIVE REPORT ---
DATE OF SERVICE: 10/03/2022 PREOPERATIVE DIAGNOSIS: Right knee primary osteoarthritis. POSTOPERATIVE DIAGNOSIS: Right knee primary osteoarthritis. PROCEDURE: Right total knee arthroplasty. SURGEON: Joel Kumar MD CREDIT CARD SPECIALIST: Nahun Mackenzie, who assisted throughout the procedure and closed the incision. ANESTHESIA: Spinal by Zachary Whitney CRNA. TOURNIQUET TIME: Approximately 60 minutes at 300 mmHg. ESTIMATED BLOOD LOSS: Minimal. DRAINS: None. COMPLICATIONS: None. POSTOPERATIVE PLAN: Routine protocol. MATERIALS: MicroPort cemented size 6 femur, cemented size 5 tibia with a 14 mm insert and cemented size 32 patellar button. The patient was transferred to recovery room in awake and stable condition. STATEMENT OF MEDICAL NECESSITY: The patient is a 56-year-old female with longstanding progressive right knee pain. Radiographs revealed severe lateral and patellofemoral arthrosis. She has undergone treatment with arthroscopy as well as injections without lasting relief; therefore, the patient elected to proceed with surgical intervention. DESCRIPTION OF PROCEDURE: After risks and benefits of the procedure were discussed and questions were answered, informed consent was signed and placed on the chart. The operative site was confirmed in the preoperative holding and initialed by the surgeon. The patient was then transferred to the operating room. After adequate levels of regional anesthetic were obtained, a timeout was called, confirming the operative site. The right lower extremity was prepped and draped in the usual sterile fashion with the leg elevated and the knee flexed and tourniquet inflated to 300 mmHg. Standard anterior approach was utilized. Hemostasis was obtained with cautery. A medial parapatellar arthrotomy was performed, leaving 1 cm cuff on the patella for later reattachment. Portion of fat pad was resected. Subperiosteal release was performed on the proximal medial tibia, being careful to stay on the bony surface. The ACL was resected. The custom cutting block guide was placed on the femur. This was pinned into position, distal cut was made and the 6 cutting block was placed at the previously prepared drill holes. This was felt to be well aligned. Cuts were then made from posterior to anterior. Subperiosteal release was then carefully performed on the posterior distal femur, being careful to stay on the bony surface. The custom tibial guide was then placed and pinned into position, the cut was made. The drop beny transected the intermalleolar axis prior to the cut being made. The 5 baseplate was placed. This was pinned into position. Again, the drop beny transected the intermalleolar axis. This was then prepared with the drill and keel punch. The patella was then prepared by resecting 10 mm off the undersurface. The peg guide was placed and peg holes were drilled. The femoral trial was placed and trochlear cut was made. A 14 mm insert provided full extension with 120 degrees of flexion. There was no anterior/posterior or medial/lateral laxity in flexion or extension and the patella tracked well. Trials were removed. The joint was irrigated with pulse lavage. IrriSept was used throughout the procedure as well. The bone ends were irrigated and dried. A periarticular block was placed in the posterior capsule, medial and lateral retinaculum extensor mechanism and subcutaneous tissues. The bone ends were again irrigated and dried. The tibial baseplate was then cemented into position. Excessive cement was removed. Superior surface was irrigated and dried and the polyethylene insert was placed. Distal femur was irrigated and dried. The femoral prosthesis was cemented into position. Excessive cement was removed. The knee was brought out into full extension until cement had cured. The undersurface of the patella was irrigated and dried and the patellar button was cemented into position. Excessive cement was removed. The knee was held out in full extension until cement had cured. Once the cement had cured, knee was taken through range of motion. Full extension was easily obtained under 20 degrees of flexion with gravity was easily obtained. There was no anterior/posterior, medial/lateral laxity in flexion or extension and the patella tracked well. The joint was further irrigated with pulse lavage as well as using IrriSept. The arthrotomy was closed with #2 Tevdek in esmuey-jx-vjlmv interrupted fashion. Knee was flexed. Repair was stable. The subcutaneous tissues were irrigated using a total of 6 liters throughout the procedure as well as the Aricept. An 0 Vicryl was used for deep subcutaneous layer, 2-0 Vicryl for the superficial subcutaneous layer, [place] were used on the skin. The tourniquet was deflated after placing a soft dressing and the patient was transferred to the recovery room awake and stable condition. Job ID: [id number] DocumentID: [id number] Dictated Date: 10/03/2022 09:18:55 Hydrometeorological Technician Date: 10/03/2022 13:04:00 Dictated By: JOEL KUMAR MD
[2022-10-03] MEDS: CEFUROXIME INJECTION 750 MG in NS (IVPB) 50 ML IV SCH ×2 (15:24→23:23)
[2022-10-03] MEDS: oxyCODONE/APAP 5/325MG (PERCOCET 5) TABLET PO PRN ×2 (15:30→22:52)
--- NOTE | 2022-10-03 15:33 | Physical Therapy Evaluation ---
PT Evaluation-General Medical Diagnosis Admission Date Oct 03, 2022 at 06:04 Medical Diagnosis: right knee OA Onset Date: Oct 03, 2022 Therapy Diagnosis Therapy Diagnosis: impaired mobility Height/Weight Height (Feet): 5 Height (Inches): 8.00 Weight (Pounds): 390 Weight (Ounces): 0.0 Precautions Precautions/Isolations: Fall Prevention, Standard Precautions Weight Bear Status Full Weight Bearing Full Weight Bearing Referral Physician: Joel Hodge Reason for Referral: Evaluation/Treatment Medical History Pertinent Medical History: Arthritis, Breast CA S/P Mastectomy, OA Current History Pt underwent elective right TKA 10/03/22 following longstanding knee pain and lack of response to conservative treatment. Social History Home: Single Level Current Living Status: Spouse Entry Into Home: Stairs With Railing PT Steps Into Home: 2 Patient will have her to help her into the home. Prior Prior Level of Function SCALE: Activities may be completed with or without assistive devices. 1-Plsvfshyov-xzghspy completes the activity by him/herself with no assistance from a helper. 5-Set-up or Clean-up Assistance-helper sets up or cleans up; patient completes activity. [place] assists only prior to or following the activity. 4-Supervision or Touching Assistance-helper provides verbal cues and/or touching/steadying and/or contact guard assistance as patient completes activity. Assistance may be provided throughout the activity or intermittently. 3-Partial/Moderate Assistance-helper does LESS THAN HALF the effort. [place] lifts, holds or supports trunk or limbs, but provides less than half the effort. 2-Substantial/Maximal Assistance-helper does MORE THAN HALF the effort. [place] lifts or holds trunk or limbs and provides more than half the effort. 4-Zenrahnid-ujohul does ALL the effort. Patient does none of the effort to complete the activity. Or, the assistance of 2 or more helpers is required for the patient to complete the activity. If activity was not attempted, code reason: 7-Patient Refused. 9-Not Applicable-not attempted and the patient did not perform the activity before the current illness, exacerbation or injury. 10-Not Attempted due to Environmental Limitations-(lack of equipment, weather restraints, etc.). 88-Not Attempted due to Medical Conditions or Safety Concerns. Bed Mobility: 6 Transfers (B,C,W/C): 6 Gait: 6 Stairs: 6 PT Evaluation-Current Subjective Pt reports she had Iovara injection 2 weeks ago and has been feeling great. She has had a knee scope and knows several knee exercises. Objective Patient Orientation: Normal For Age Attachments: IV ROM/Strength ROM Lower Extremities right knee 5-90 degrees Strength Lower Extremities gross 5/5 on (L); right quad 75% max contraction Sensory Vision: Functional Hearing: Functional Transfers Roll Left to Right (QC): 6 Sit to Lying (QC): 6 Lying to Sitting/Side of Bed(Q: 6 Sit to Stand (QC): 6 Chair/Rgt-tg-Iwiln Xfer(QC): 6 Gait Does the Patient Walk?: Yes Mode of Locomotion: Walk Anticipated Mode of Locomotion: Walk Distance: 200 Gait Assistive Device: FWW Comments/Gait Description Ambulate 200ft with FWW and SBA with assist for IV pole. Balance Sitting Static: Normal Sitting Dynamic: Normal Standing Static: Good Standing Dynamic: Good Assessment/Needs Pt has lack of ROM in the right knee and minor impairment to gait following TKA. She will benefit from PT to address knee ROM, strength, and general loss of mobility. Rehab Potential: Good Equipment Needs FWW PT Chcf Goals Chcf Goals PT Flag Car Driver Goals Time Frame: Oct 04, 2022 Roll Left & Right (QC): 6 Sit to Lying (QC): 6 Lying-Sitting on Side/Bed(QC): 6 Sit to Stand (QC): 6 Chair/Rcm-ng-Wxiai Xfer(QC): 6 Walk 150 ft (QC): 6 4 Steps (QC): 4 PT Plan Problem List Problem List: Functional Strength, Balance, Gait, ROM Treatment/Plan Treatment Plan: Continue Plan of Care Treatment Duration: Oct 04, 2022 Frequency: 11 times per week Estimated Hrs Per Day: .25 hour per day Patient and/or Family Agrees t: Yes Time Time In: 1445 Time Out: 1515 DATE: Oct 03, 2022 Total Billed Treatment Time: 30 Total Billed Treatment visit, evaluation low complexity 30 min RACHEL LIRIANO PT Oct 03, 2022 15:33
--- NOTE | 2022-10-03 16:59 | Consultation - Hospitalist ---
HPI History of Present Illness: HPI/Chief Complaint Caroline Cheng is a 56 year old female with PMH breast cancer currently in remission, morbid obesity, history of gastric bypass, osteoarthritis, who presented for a scheduled total knee arthroplasty. She was seen post- operatively. She is doing well. She has no complaints. She denies pain. She denies nausea. Source: patient Exam Limitations: no limitations Date Seen 10/03/22 Attending Physician Sherif Wallace DO PCP Admitting Physician: Joel Hodge MD Attending Physician: Joel Hodge MD Referring Physician Date of Admission Oct 03, 2022 at 06:04 Home Medications & Allergies Home Medications Reviewed patient Home Medication Reconciliation performed by pharmacy medication reconciliations fiscal technician and/or nursing. Patients Allergies have been reviewed. Allergies Allergies Coded Allergies NSAIDS (Non-Steroidal Anti-Inflamma (Verified Allergy, Unknown, WEIGHT LOSS SURGERY, 10/03/22) Past Xjofwiu-Inobyk-Anpaao Hx Patient Social History Tobacco Use?: No Smoking Status: Never a Smoker Smokeless Tobacco Frequency: Never a User Use of E-Cig and/or Vaping dev: No Use of E-Cig and/or Vaping Zoltan: Never a User Substance use?: No Alcohol Use?: No Pt feels they are or have been: No Immunizations Up To Date Date of Influenza Vaccine: Jan 14, 2022 First/Initial COVID19 Vaccinat: 04/02/20 Second COVID19 Vaccination Jaya: 05/22 Tetanus Booster (TDap): Unknown Hepatitis A: No Hepatitis B: No Seasonal Allergies Seasonal Allergies: Yes Current Status status: No status: No Advance Directives: No Communicates: Verbally Primary Language: Armenian Preferred Spoken Language: Armenian Is interpretation needed?: No Implanted or Applied Medical D: None Past Medical History Surgeries: Adenoidectomy, Gallbladder, Tonsillectomy Sleep Apnea Currently Using CPAP: No Currently Using BIPAP: No Hypertension 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 Sexually Transmitted Disease: No HIV/AIDS: No Kidney Stones Gastroesophageal Reflux, Polyps, Gall Bladder Disease Arthritis Tonsilitis Loss of Vision: Bilateral Hearing Impairment: Denies Breast Did You Recieve Any Treatments: Yes What Type of Treatment Did You: Chemotherapy, Radiation, Surgical Intervention Blood Disorders: Yes (ANEMIA) Adverse Reaction/Blood Tranf: No (N/A) Family Medical History No Pertinent Family Hx Review of Systems Constitutional: no symptoms reported Respiratory: no symptoms reported Cardiovascular: no symptoms reported Gastrointestinal: no symptoms reported Physical Exam Physical Exam Vital Signs Vital Signs - First Documented 10/03/22 06:15 Temp 35.9 Pulse 72 Resp 18 B/P (MAP) 120/76 (91) Pulse Ox 96 O2 Delivery Room Air Capillary Refill : Height, Weight, BMI Height: 5'8.00" Weight: 390lbs. 0.0oz. [id number]; 41.44 BMI Method:Estimated General Appearance: No Apparent Distress, Obese HEENT: PERRL/EOMI, Pharynx Normal Neck: Normal Inspection, Supple Respiratory: Lungs Clear, Normal Breath Sounds, No Respiratory Distress Cardiovascular: Regular Rate, Rhythm, No Edema, No Murmur Gastrointestinal: Normal Bowel Sounds, Non Tender, Soft Extremity: Normal Inspection, No Pedal Edema Neurologic/Psychiatric: Alert, Normal Mood/Affect Skin: Normal Color, Warm/Dry Results Results/Procedures Labs Patient resulted labs reviewed. Imaging: Reviewed Imaging Report Assessment/Plan Assessment and Plan Assess & Plan/Chief Complaint s/p total knee arthroplasty Osteoarthritis of the right knee Ortho primary, Dr. Hodge PT/OT Pain regimen Bowel regimen Incentive spirometry Lovenox Hyperlipidemia Breast cancer in remission Morbid obesity History of gastric bypass Continue home meds Diagnosis/Problems Diagnosis/Problems (1) Osteoarthritis of right knee Status: Acute Qualifiers: Osteoarthritis type: primary Qualified Codes: M17.11 - Unilateral primary osteoarthritis, right knee (2) S/P total knee arthroplasty Status: Acute Qualifiers: Laterality: right Qualified Codes: Z96.651 - Presence of right artificial knee joint (3) Morbid obesity Status: Chronic (4) History of gastric bypass Status: Chronic (5) History of breast cancer Status: Chronic (6) HLD (hyperlipidemia) Status: Chronic MICHAEL MOLINA MD Oct 03, 2022 16:59
[2022-10-03] MEDS: GABAPENTIN 300 MG (NEURONTIN) CAP PO SCH (20:33)
[2022-10-03] MEDS: SENNA W/DOCUSATE (SENOKOT S) TABLET PO SCH (20:33)
[2022-10-03] MEDS: ROSUVASTATIN 10 MG (CRESTOR) TABLET PO SCH (20:33)
[2022-10-04 03:24] VITALS: BP 120/76
[2022-10-04] MEDS: oxyCODONE/APAP 5/325MG (PERCOCET 5) TABLET PO PRN ×4 (03:43→18:41)
[2022-10-04 05:20] LABS: HEMOGLOBIN 10.7 g/dL (11.5-16.0)
--- NOTE | 2022-10-04 07:45 | Progress Note ---
Standard Progress Note Progress Notes/Assess & Plan Date Seen by a Provider: Oct 04, 2022 Time Seen by a Provider: 07:33 Progress/Assessment & Plan post op check no complaints radiographs--HW well positioned without fracture RLE--2 plus DP pulse with brisck cap refill sensation intact to light touch throughout intact DF and PF of toes and ankle s/p RTKA mobilize as able Final Diagnosis no complaints Laboratory Tests Test 10/04/22 04:52 Range/Units Hemoglobin 10.7 L 11.5-16.0 g/dL Hematocrit 32 L 35-52 % Vital Signs Date Time Temp Pulse Resp B/P (MAP) Pulse Ox O2 Delivery O2 Flow Rate FiO2 10/04/22 03:24 36.8 75 16 120/76 (91) 97 Room Air 10/03/22 23:30 37.1 77 16 133/78 (96) 95 Room Air 10/03/22 20:26 37.1 64 17 122/64 (83) 99 Room Air 10/03/22 20:00 Room Air 10/03/22 16:10 36.9 56 17 120/80 (93) 98 Room Air 10/03/22 15:26 Room Air 10/03/22 11:37 36.4 66 17 109/60 (76) 98 Room Air 10/03/22 10:59 98 Room Air 10/03/22 10:18 36.4 66 17 109/60 (76) 98 Room Air 10/03/22 10:05 Room Air 10/03/22 10:00 36.6 16 111/59 (76) 100 Room Air 10/03/22 09:50 20 109/69 (82) 100 Room Air 10/03/22 09:45 Room Air 10/03/22 09:40 17 100/59 (73) 100 OxyMask 2.00 10/03/22 09:30 18 104/56 (72) 100 OxyMask 2.00 10/03/22 09:30 OxyMask 2.00 10/03/22 09:20 20 98/54 (69) 100 OxyMask 4.00 10/03/22 09:14 36.9 16 93/55 (68) 100 OxyMask 4.00 10/03/22 09:14 OxyMask 4.00 I & O 10/04/22 07:00 Intake Total 5771 ml Output Total 0 ml Balance 5771 ml RLE--NVI distally no calf tenderness neg Zara's s/p RTKA doing well PT/OT DC tomorrow LU KUMAR MD Oct 04, 2022 07:45
[2022-10-04] MEDS: SENNA W/DOCUSATE (SENOKOT S) TABLET PO SCH ×2 (08:01→19:31)
[2022-10-04] MEDS: ENOXAPARIN INJECTION 30 MG/0.3 ML SYR SC SCH ×2 (08:02→19:31)
[2022-10-04] MEDS: LETROZOLE 2.5 MG (FEMARA) TAB PO SCH (08:03)
[2022-10-04 08:21] VITALS: BP 140/67
[2022-10-04] MEDS ORDERED: ASPIRIN E.C. 81 MG (ECOTRIN) TAB PO SCH (09:00)
--- NOTE | 2022-10-04 10:45 | Physical Therapy Daily Note ---
PT Daily Note-Current Subjective Patient agrees to therapy. Family present. Pain Numeric Pain Scale: 5-Moderate Pain Location: Right Location Body Site: Knee Pain Description: Acute Section J - Health Conditions 1. Rarely or not at all 2. Occasionally 3. Frequently 4. Almost constantly 8. Unable to answer Pain Effect on Sleep: 1 Pain Interference with Therapy: 1 Pain Interference w/Day-to-Day: 1 Mental Status Patient Orientation: Normal For Age Transfers SCALE: Activities may be completed with or without assistive devices. 1-Ilgwconind-pljfwmw completes the activity by him/herself with no assistance from a helper. 5-Set-up or Clean-up Assistance-helper sets up or cleans up; patient completes activity. [place] assists only prior to or following the activity. 4-Supervision or Touching Assistance-helper provides verbal cues and/or touching/steadying and/or contact guard assistance as patient completes activity. Assistance may be provided throughout the activity or intermittently. 3-Partial/Moderate Assistance-helper does LESS THAN HALF the effort. [place] lifts, holds or supports trunk or limbs, but provides less than half the effort. 2-Substantial/Maximal Assistance-helper does MORE THAN HALF the effort. [place] lifts or holds trunk or limbs and provides more than half the effort. 2-Hcjwoznkd-mtodqr does ALL the effort. Patient does none of the effort to complete the activity. Or, the assistance of 2 or more helpers is required for the patient to complete the activity. If activity was not attempted, code reason: 7-Patient Refused. 9-Not Applicable-not attempted and the patient did not perform the activity before the current illness, exacerbation or injury. 10-Not Attempted due to Environmental Limitations-(lack of equipment, weather restraints, etc.). 88-Not Attempted due to Medical Conditions or Safety Concerns. Lying to Sitting/Side of Bed(Q: 6 Sit to Stand (QC): 6 Chair/Haq-xt-Mioyu Xfer(QC): 6 Weight Bearing Full Weight Bearing Full Weight Bearing Gait Training Distance: 250' Walk 10 feet (QC): 6 Walk 50 ft with 2 Turns(QC): 6 Walk 150 ft (QC): 6 Gait Assistive Device: FWW steady, reciprocal pattern Exercises Supine Ex: Ankle pumps, Quad Set, Heel Slides, Straight leg raise Supine Reps: 15 Seated Therapy Exercises: Long arc quads Seated Reps: 15 Assessment Patient progressing with treatment plan. Patient instructed to perform HEP issues at preop PRN during day. Patient also instructed to be up ad tracee in room and hallway. RN notified. PT Professor Of Radiology Goals Professor Of Radiology Goals PT Half-Way Goals Time Frame: Oct 04, 2022 Roll Left & Right (QC): 6 Sit to Lying (QC): 6 Lying-Sitting on Side/Bed(QC): 6 Sit to Stand (QC): 6 Chair/Ikh-mc-Obgya Xfer(QC): 6 Walk 150 ft (QC): 6 4 Steps (QC): 4 PT Plan Treatment/Plan Treatment Plan: Continue Plan of Care Treatment Duration: Oct 04, 2022 Frequency: 11 times per week Estimated Hrs Per Day: .25 hour per day Patient and/or Family Agrees t: Yes Time Time In: 841 Time Out: 908 DATE: Oct 04, 2022 Total Billed Treatment Time: 27 Total Billed Treatment 1 visit EX 16 min GT 11 min SADA TERRELL PT Oct 04, 2022 10:45
[2022-10-04 11:19] VITALS: BP 148/73
--- NOTE | 2022-10-04 14:08 | Physical Therapy Daily Note ---
PT Daily Note-Current Subjective Patient agrees to PT. She reports she has been up independently. Pain Numeric Pain Scale: 5-Moderate Pain Location: Right Location Body Site: Knee Pain Description: Acute Section J - Health Conditions 1. Rarely or not at all 2. Occasionally 3. Frequently 4. Almost constantly 8. Unable to answer Pain Effect on Sleep: 1 Pain Interference with Therapy: 1 Pain Interference w/Day-to-Day: 1 Mental Status Patient Orientation: Normal For Age Transfers SCALE: Activities may be completed with or without assistive devices. 2-Klmvqgoybe-qhvjkza completes the activity by him/herself with no assistance from a helper. 5-Set-up or Clean-up Assistance-helper sets up or cleans up; patient completes activity. [place] assists only prior to or following the activity. 4-Supervision or Touching Assistance-helper provides verbal cues and/or touching/steadying and/or contact guard assistance as patient completes activity. Assistance may be provided throughout the activity or intermittently. 3-Partial/Moderate Assistance-helper does LESS THAN HALF the effort. [place] lifts, holds or supports trunk or limbs, but provides less than half the effort. 2-Substantial/Maximal Assistance-helper does MORE THAN HALF the effort. [place] lifts or holds trunk or limbs and provides more than half the effort. 0-Uqhhrjqma-frfuvi does ALL the effort. Patient does none of the effort to complete the activity. Or, the assistance of 2 or more helpers is required for the patient to complete the activity. If activity was not attempted, code reason: 7-Patient Refused. 9-Not Applicable-not attempted and the patient did not perform the activity before the current illness, exacerbation or injury. 10-Not Attempted due to Environmental Limitations-(lack of equipment, weather restraints, etc.). 88-Not Attempted due to Medical Conditions or Safety Concerns. Sit to Stand (QC): 6 Weight Bearing Full Weight Bearing Full Weight Bearing Gait Training Distance: 250' Walk 10 feet (QC): 6 Walk 50 ft with 2 Turns(QC): 6 Walk 150 ft (QC): 6 Gait Assistive Device: FWW Exercises Supine Ex: Ankle pumps, Quad Set, Heel Slides, Straight leg raise Supine Reps: 15 Seated Therapy Exercises: Long arc quads Seated Reps: 15 Assessment Patient much improved this p.m. AROM right knee 5-80 degrees. Plan dismissal to home tomorrow. PT Threat Analyst Goals Threat Analyst Goals PT Fdc Goals Time Frame: Oct 04, 2022 Roll Left & Right (QC): 6 Sit to Lying (QC): 6 Lying-Sitting on Side/Bed(QC): 6 Sit to Stand (QC): 6 Chair/Sib-bb-Xpnej Xfer(QC): 6 Walk 150 ft (QC): 6 4 Steps (QC): 4 PT Plan Treatment/Plan Treatment Plan: Continue Plan of Care Treatment Duration: Oct 04, 2022 Frequency: 11 times per week Estimated Hrs Per Day: .25 hour per day Patient and/or Family Agrees t: Yes Time Time In: 1255 Time Out: 1315 DATE: Oct 04, 2022 Total Billed Treatment Time: 20 Total Billed Treatment 1 visit FA 20 min SADA TERRELL PT Oct 04, 2022 14:08
--- NOTE | 2022-10-04 14:15 | DISCHARGE SUMMARY ---
DIAGNOSES: 1. Right knee primary osteoarthritis. 2. History of breast cancer. 3. Hypertension. PROCEDURE: Right total knee arthroplasty. SUMMARY OF HOSPITAL COURSE: The patient is a 56-year-old female who underwent a right total knee arthroplasty on the date of admission. Postoperatively, she did well. At time of discharge, her wound was clean and dry. She had no calf tenderness. Negative Homans' sign. She was tolerating diet well and tolerating pain with oral pain medication. CONDITION AT DISCHARGE: Good. DISCHARGE DIET: Regular. Followup is in 3 weeks. Home physical therapy has been arranged. DISCHARGE MEDICATIONS: Home medications, 1 aspirin per day, tramadol and oxycodone for breakthrough pain. Job ID: [id number] DocumentID: [id number] Dictated Date: 10/04/2022 07:46:44 Sterile Products Processor Date: 10/04/2022 13:57:00 Dictated By: LU KUMAR MD
[2022-10-04 15:14] VITALS: BP 128/75
[2022-10-04 19:08] VITALS: BP 128/77
[2022-10-04] MEDS: ROSUVASTATIN 10 MG (CRESTOR) TABLET PO SCH (19:31)
[2022-10-04] MEDS: GABAPENTIN 300 MG (NEURONTIN) CAP PO SCH (19:31)
[2022-10-04 23:12] VITALS: BP 143/71
[2022-10-05] MEDS: oxyCODONE/APAP 5/325MG (PERCOCET 5) TABLET PO PRN ×3 (01:04→09:35)
[2022-10-05 04:00] VITALS: BP 145/70
--- NOTE | 2022-10-05 06:43 | Progress Note ---
Standard Progress Note Progress Notes/Assess & Plan Date Seen by a Provider: Oct 05, 2022 Time Seen by a Provider: 06:42 Progress/Assessment & Plan post op check no complaints radiographs--HW well positioned without fracture RLE--2 plus DP pulse with brisck cap refill sensation intact to light touch throughout intact DF and PF of toes and ankle s/p RTKA mobilize as able Final Diagnosis no complaints ambulating on walker Vital Signs Date Time Temp Pulse Resp B/P (MAP) Pulse Ox O2 Delivery O2 Flow Rate FiO2 10/05/22 04:00 36.6 81 18 145/70 (95) 98 Room Air 10/04/22 23:12 36.6 86 18 143/71 (95) 98 Room Air 10/04/22 20:00 96 Room Air 10/04/22 19:08 37.0 83 18 128/77 (94) 95 Room Air 10/04/22 15:14 36.8 75 16 128/75 (92) 98 Room Air 10/04/22 11:19 36.6 67 16 148/73 (98) 99 Room Air 10/04/22 08:21 36.7 68 16 140/67 (91) 96 Room Air 10/04/22 08:00 96 Room Air I & O 10/05/22 07:00 Intake Total 1790 ml Balance 1790 ml Laboratory Tests Test 10/05/22 05:15 Range/Units Hemoglobin 10.0 L 11.5-16.0 g/dL Hematocrit 30 L 35-52 % RLE--incision clean and dry no calf tenderness neg Zara's s/p RTKA doing well DC home after PT LU KUMAR MD Oct 05, 2022 06:43
[2022-10-05 07:46] VITALS: BP 144/71
--- NOTE | 2022-10-05 07:50 | Physical Therapy Daily Note ---
PT Daily Note-Current Subjective Patient agrees to PT. Pain Numeric Pain Scale: 5-Moderate Pain Location: Right Location Body Site: Knee Pain Description: Acute Section J - Health Conditions 1. Rarely or not at all 2. Occasionally 3. Frequently 4. Almost constantly 8. Unable to answer Pain Effect on Sleep: 1 Pain Interference with Therapy: 1 Pain Interference w/Day-to-Day: 1 Mental Status Patient Orientation: Normal For Age Transfers SCALE: Activities may be completed with or without assistive devices. 5-Hzfgpsfkon-rordwce completes the activity by him/herself with no assistance from a helper. 5-Set-up or Clean-up Assistance-helper sets up or cleans up; patient completes activity. Shiloh assists only prior to or following the activity. 4-Supervision or Touching Assistance-helper provides verbal cues and/or touching/steadying and/or contact guard assistance as patient completes activity. Assistance may be provided throughout the activity or intermittently. 3-Partial/Moderate Assistance-helper does LESS THAN HALF the effort. Shiloh lifts, holds or supports trunk or limbs, but provides less than half the effort. 2-Substantial/Maximal Assistance-helper does MORE THAN HALF the effort. Shiloh lifts or holds trunk or limbs and provides more than half the effort. 6-Wdhhrixyr-wqmmta does ALL the effort. Patient does none of the effort to complete the activity. Or, the assistance of 2 or more helpers is required for the patient to complete the activity. If activity was not attempted, code reason: 7-Patient Refused. 9-Not Applicable-not attempted and the patient did not perform the activity befo re the current illness, exacerbation or injury. 10-Not Attempted due to Environmental Limitations-(lack of equipment, weather re straints, etc.). 88-Not Attempted due to Medical Conditions or Safety Concerns. Lying to Sitting/Side of Bed(Q: 6 Sit to Stand (QC): 6 Chair/Elt-pt-Icejk Xfer(QC): 6 Weight Bearing Full Weight Bearing Full Weight Bearing Gait Training Distance: 275' Walk 10 feet (QC): 6 Walk 50 ft with 2 Turns(QC): 6 Walk 150 ft (QC): 6 Gait Assistive Device: FWW slow, steady, reciprocal pattern Stair Training Stair Training: Handrails/: 1 handrail, uses walker #of Steps: 4 1 Step (curb) (QC): 4 4 Steps (QC): 4 Stairs: Pattern: Step to Exercises Seated Therapy Exercises: Long arc quads Seated Reps: 5 (static stretch with spouse assist in recliner) Assessment Patient instructed to perform HEP issued at preop 3/day. Patient voices understanding. Patient encouraged to perform right knee flexion exercises to improve AROM. Patient demonstrates good technique with these activities. PT to dismiss patient from services at this time. PT Halfway Goals Six Sigma Black Belt Engineer Goals PT Halfway Goals Time Frame: Oct 04, 2022 Roll Left & Right (QC): 6 Sit to Lying (QC): 6 Lying-Sitting on Side/Bed(QC): 6 Sit to Stand (QC): 6 Chair/Ckh-hu-Mhakb Xfer(QC): 6 Walk 150 ft (QC): 6 4 Steps (QC): 4 PT Plan Treatment/Plan Treatment Plan: Discontinue PT, goals met Treatment Duration: Oct 04, 2022 Frequency: 11 times per week Estimated Hrs Per Day: .25 hour per day Patient and/or Family Agrees t: Yes Time Time In: 725 Time Out: 744 DATE: Oct 05, 2022 Total Billed Treatment Time: 19 Total Billed Treatment 1 visit FA 19 min SADA TERRELL PT Oct 05, 2022 07:50
[2022-10-05] MEDS: SENNA W/DOCUSATE (SENOKOT S) TABLET PO SCH (07:57)
[2022-10-05] MEDS: ENOXAPARIN INJECTION 30 MG/0.3 ML SYR SC SCH (07:57)
[2022-10-05] MEDS: LETROZOLE 2.5 MG (FEMARA) TAB PO SCH (07:58)
[2022-10-05 09:43] VITALS: BP 144/71
== END 2022-10-05 09:40 | disposition home health service (06) | DRG 470 ==
LOC: 4TH 06:04 → SURG 06:05 → 4TH 10:14
PROVIDERS: ADMIT Orthopaedic Surgery; ATTEND Orthopaedic Surgery
PROC: 0SRC0J9 Replacement of Right Knee Joint with Synthetic Substitute, Cemented, Open Approach (ICD-10-PCS; principal; 2022-10-03 07:33)
DX: M17.11 Unilateral primary osteoarthritis, right knee (principal); Z68.41 Body mass index [BMI] 40.0-44.9, adult; E66.01 Morbid (severe) obesity due to excess calories; Z98.84 Bariatric surgery status; C50.919 Malignant neoplasm of unspecified site of unspecified female breast; G47.30 Sleep apnea, unspecified; I10 Essential (primary) hypertension; G62.9 Polyneuropathy, unspecified; K21.9 Gastro-esophageal reflux disease without esophagitis; Z92.21 Personal history of antineoplastic chemotherapy; Z92.3 Personal history of irradiation; E78.5 Hyperlipidemia, unspecified
CPT/HCPCS: 36415; 73560; 85014; 85018; 93005; 94664

== ENCOUNTER 2022-10-29 14:30 | Outpatient (RCR) | payer OTHER ==
[~2022-10-29 14:30] MED LIST changes: +ROSU10TA28 PO
== END 2022-10-30 01:50 | disposition home or self-care (01) ==
PROVIDERS: ATTEND Orthopaedic Surgery
DX: M17.11 Unilateral primary osteoarthritis, right knee (principal); Z96.651 Presence of right artificial knee joint

== ENCOUNTER 2022-11-27 09:15 | Outpatient (RCR) | payer OTHER | END 2022-11-29 | disposition home or self-care (01) | PROVIDERS: ATTEND Orthopaedic Surgery | DX: M17.11 Unilateral primary osteoarthritis, right knee (principal); Z96.651 Presence of right artificial knee joint ==

== ENCOUNTER → 2022-12-14 | Outpatient (CLI) | payer OTHER ==
--- NOTE | 2022-12-14 13:53 | Diagnostic Imaging Report ---
INDICATION: Cough, shortness of air. EXAMINATION: 2 view chest 12/14/2022. COMPARISON: 09/27/2022 FINDINGS: Heart and pulmonary vasculature normal. Lungs and pleural spaces clear. No infiltrates, effusions or pneumothorax. IMPRESSION: No acute cardiopulmonary process. Dictated by: Dictated on workstation # [id number]
== END ==
LOC: RAD 09:27
PROVIDERS: ATTEND Family Medicine
DX: R05.9 Cough, unspecified (principal); R50.9 Fever, unspecified
CPT/HCPCS: 71046

== ENCOUNTER 2023-01-09 05:38 | Outpatient (CLI) | payer OTHER ==
[~2023-01-09] VITALS: Ht 170.1 cm; Wt 106.0 kg
== END 2023-01-10 10:23 | disposition home or self-care (01) ==
LOC: PREOP 05:38
PROVIDERS: ATTEND Surgery
DX: Z01.818 Encounter for other preprocedural examination (principal)

== ENCOUNTER 2023-01-16 12:31 | Day surgery (SDC) | payer OTHER ==
[~2023-01-16] VITALS: Ht 170.1 cm; Wt 106.0 kg
[2023-01-16] MEDS ORDERED: LACTATED RINGERS 1,000 ML 1,000 ML IV STA (12:41)
[2023-01-16] MEDS ORDERED: LIDOCAINE JELLY 2% 6 ML SYRINGE MM PRN (12:45)
[2023-01-16 12:49] VITALS: BP 103/68
[2023-01-16] MEDS ORDERED: LIDOCAINE JELLY 2% 6 ML SYRINGE ONE (12:56)
--- NOTE | 2023-01-16 13:13 | Progress Note-Pre Operative ---
Pre-Operative Progress Note Date of Available H&P: Jan 16, 2023 Date H&P Reviewed: Jan 16, 2023 Time H&P Reviewed: 13:00 History & Physical: No changes noted Pre-Operative Diagnosis: screening colo with personal hx breast ca HERACLIO BRADFORD MD Jan 16, 2023 13:13
--- NOTE | 2023-01-16 13:14 | Discharge Inst-Surgical ---
D/C Lap Instructions-SANCHEZ Follow Up Activity as tolerated High Fiber Diet 25g or more per day Avoid Alcohol, Caffeine, Spicy Roxton and Acid foods. Drink 64 fluid oz or more of fluids per day. Symptoms to Report: Fever over 101 degree F, Nausea/Vomiting If any problems/questions: Contact your physician or go to Emergency Room HERACLIO BRADFORD MD Jan 16, 2023 13:14
[2023-01-16] MEDS ORDERED: ONDANSETRON INJECTION 4 MG/2 ML (SDV) IVP PRN (13:15)
[2023-01-16] MEDS ORDERED: ONDANSETRON 4 MG ORAL DISSOLVE TABLET PO PRN (13:15)
[2023-01-16 15:10] VITALS: BP 121/79
--- NOTE | 2023-01-16 15:13 | Anesthesia-General Post-Op ---
MAC Patient Condition Mental Status/LOC: Same as Preop Cardiovascular: Satisfactory Nausea/Vomiting: Absent Respiratory: Satisfactory Pain: Controlled Complications: Absent Post Op Complications Complications None Follow Up Care/Instructions Patient Instructions None needed. Anesthesiology Discharge Order Discharge Order Patient is doing well, no complaints, stable vital signs, no apparent adverse anesthesia problems. No complications reported per nursing. TREVOR SERRANO CRNA Jan 16, 2023 15:13
[2023-01-16 15:15] VITALS: BP 121/81
--- NOTE | 2023-01-16 15:23 | Progress Note-Post Operative ---
Post-Operative Progess Note Surgeon (s)/Driver'S Education Instructor (s) Surgeon HERACLIO BRADFORD MD Driver'S Education Instructor: none Pre-Operative Diagnosis screening colo with personal hx breast ca Post-Operative Diagnosis normal colon and rectum. Procedure & Operative Findings Date of Procedure 01/16/23 Procedure Performed/Findings colonoscopy Anesthesia Type mac Estimated Blood Loss Estimated blood loss (mL): minimal Specimens/Packing Specimens Removed none HEARCLIO BRADFORD MD Jan 16, 2023 15:23
[2023-01-16 15:45] VITALS: BP 121/81
--- NOTE | 2023-01-16 21:57 | OPERATIVE REPORT ---
DATE OF SERVICE: 01/16/2023 ATTENDING PRIMARY CARE PHYSICIAN: Sherif Wallace DO PREOPERATIVE DIAGNOSIS: Screening colonoscopy with personal history of breast cancer. POSTOPERATIVE DIAGNOSIS: Normal colon and rectum. PROCEDURE: Colonoscopy. SURGEON: Heraclio Bradford MD ANESTHESIA: Monitored anesthesia care. ESTIMATED BLOOD LOSS: Minimal. FINDINGS: Normal colon and rectum. DISPOSITION: The patient tolerated the procedure well. INDICATIONS: The patient is a 57-year-old female known to us. In 2014, she had noticed a breast lesion along the right breast, which was biopsied and consistent with invasive breast cancer. She underwent neoadjuvant chemoradiation and then underwent right breast mastectomy and reconstruction. We had also done an EGD on her in 2018 where she was found to have reflux esophagitis grade B, small hiatal hernia, 1.5 cm in size as well as moderate gastritis. She also underwent a colonoscopy at the same time, was found to have a small polyp of the rectosigmoid junction and this was consistent with a benign tubular adenoma. Due to her personal history of breast cancer, she did decide on proceeding with screening colonoscopies every 5 years. DESCRIPTION OF PROCEDURE: The patient was brought to the endoscopy suite and laid in the left lateral decubitus position. After adequate IV pain and sedative medications and monitored anesthesia care, a digital rectal examination was performed. No significant hemorrhoids were identified at this time. Normal sphincter tone was felt and there were no palpable masses. The endoscope was then intubated into the anus, rectum gently insufflated. The endoscope was then advanced through the valves of Maloney of the rectum with no polyps or any neoplasms identified. We then proceeded through the sigmoid colon where no diverticulosis was identified. The endoscope was then advanced through the remainder of the descending, transverse and ascending colon to the cecum, which were normal. There were no polyps or any neoplasms identified throughout the colon or rectum. The endoscope was then slowly withdrawn while taking a second look and suctioning of residual air with no additional findings. The patient tolerated the procedure well. We will recommend continued medical management with a high-fiber diet with addition of a fiber supplement, which should equal or exceed 25 grams daily as well as significant amounts of water to promote soft consistency stools on a daily basis. We will leave the decision up to her as to when to do her next screening colonoscopy. Again, there is a slightly increased risk of other cancers when an initial primary breast cancer is identified and she may proceed with her followup colonoscopies every 5 years; however, she does not know of any first-degree family relatives with a history of colon cancer and if she decides to go every 10 years, she may do that as well. Job ID: [id number] DocumentID: [id number] Dictated Date: 01/16/2023 15:17:42 Ham Boner Date: 01/16/2023 21:55:00 Dictated By: HERACLIO BRADFORD MD
== END 2023-01-16 15:45 | disposition home or self-care (01) ==
LOC: ENDO 12:31
PROVIDERS: ATTEND Surgery
DX: Z12.11 Encounter for screening for malignant neoplasm of colon (principal); Z85.3 Personal history of malignant neoplasm of breast; Z86.010 Personal history of colon polyps; E66.01 Morbid (severe) obesity due to excess calories; Z68.36 Body mass index [BMI] 36.0-36.9, adult

== ENCOUNTER 2023-02-20 05:34 | Outpatient (CLI) | payer OTHER ==
[~2023-02-20] VITALS: Ht 175.3 cm; Wt 105.9 kg
[2023-02-20 09:30] VITALS: BP 111/70
--- NOTE | 2023-02-20 10:04 | Physical Therapy Pre-Op Eval ---
PT Pre-Surgical Assessment Type of Surgery Type of Surgery: Prior Level of Function Current Living Status: Spouse Locomotion (Upon Admit): Independent Distance: Unlimited PLOF DME: Front Wheeled Walker Subjective Subjective Patient reports 0/10 pain in her left knee currently. Reports she had a RTKA in September 2022. Home: Single Level Current Living Status: Spouse Entry Into Home: Stairs Without Railing Steps Into Home: 2 Motor Control Motor Control: Motor Control WNL ROM ROM: WFL, except focal deficit Strength Strength: WFL Transfers Transfers (B, C, W/C) (FIM): 6 Gait Gait (FIM): 6 Gait Distance (FIM): 6 Distance: 100' Gait Assistive Device: FWW Right Lower Extremity: Right Full Weight Bearing Left Lower Extremity: Left Full Weight Bearing Treatment Rendered Treatment: Patient instructed in assistive device, supported ambulation. Patient instructed in and given written program of ROM and strengthening exercises to be preformed post-op. Patient instructed in movement precautions where applicable. Patient demonstrates understandings of post-operative therapy protocol including gait pattern and exercise program. Pre-operative instruction completed; await physical therapy orders after surgery. Treatment Goal Met: Yes Assessment Goals Acheived: I Ambulation w/ FWW, Understands P-op Precaut, I Post-op Exercises Charges/GCodes Time In: 916 Time Out: 928 Total Billed Treatment Time: 12 Total Billed Treatment Visit, KAY QUIÑONES PT Feb 20, 2023 10:04
[2023-02-20 10:30] LABS: BASOPHILS % (AUTO) 1 % (0-10); EOSINOPHILS # (AUTO) 0.1 10^3/uL (0.0-0.3); EOSINOPHILS % (AUTO) 2 % (0-10); HEMATOCRIT 38 % (35-52); HEMOGLOBIN 12.5 g/dL (11.5-16.0); LYMPHOCYTES # (AUTO) 1.3 10^3/uL (1.0-4.0); LYMPHOCYTES % (AUTO) 22 % (12-44); MEAN CORPUSCULAR HEMOGLOBIN 29 pg (25-34); MEAN CORPUSCULAR HGB CONC 33 g/dL (32-36); MEAN CORPUSCULAR VOLUME 89 fL (80-99); MEAN PLATELET VOLUME 10.3 fL (9.0-12.2); MONOCYTES # (AUTO) 0.4 10^3/uL (0.0-1.0); MONOCYTES % (AUTO) 7 % (0-12); NEUTROPHILS # (AUTO) 4.2 10^3/uL (1.8-7.8); NEUTROPHILS % (AUTO) 69 % (42-75); PLATELET COUNT 213 10^3/uL (130-400)
[2023-02-20 10:40] LABS: ALBUMIN 3.8 GM/DL (3.2-4.5); POTASSIUM 3.9 MMOL/L (3.6-5.0)
[2023-02-20 10:41] LABS: CALCIUM 8.7 MG/DL (8.5-10.1)
[2023-02-20 10:42] LABS: BACTERIA,URINE FEW /HPF; BILIRUBIN,URINE NEGATIVE (NEGATIVE); CLARITY,URINE CLEAR; COLOR,URINE YELLOW; GLUCOSE, URINE (UA) NEGATIVE (NEGATIVE); KETONES,URINE TRACE (NEGATIVE); LEUKOCYTE ESTERASE ,URINE 1+ (NEGATIVE); NITRITE,URINE NEGATIVE (NEGATIVE); PH,URINE 5.5 (5-9); PROTEIN,URINE NEGATIVE (NEGATIVE); RBC,URINE 0-2 /HPF
[2023-02-20 10:43] LABS: TOTAL PROTEIN 6.1 GM/DL (6.4-8.2)
[2023-02-20 10:43] LABS: AMORPHOUS SEDIMENT,UR FEW AMOR URATES /LPF
[2023-02-20 10:44] LABS: BILIRUBIN,TOTAL 0.4 MG/DL (0.1-1.0)
[2023-02-20 10:46] LABS: CREATININE SERUM 0.67 MG/DL (0.60-1.30)
[2023-02-20 10:51] LABS: PROTHROMBIN TIME PATIENT 13.3 SEC (12.2-14.7)
--- NOTE | 2023-02-20 11:25 | Diagnostic Imaging Report ---
INDICATION: Preoperative evaluation prior to knee arthroscopy. COMPARISON: 12/14/2022. FINDINGS: Frontal and lateral views of the chest demonstrate normal heart size and pulmonary vascularity. The lungs are clear. There are no signs of infiltrate, pleural effusions or pneumothoraces. The visualized osseous structures show no acute abnormalities. IMPRESSION: 1. No acute process. No signs of infiltrates, effusions or pneumothoraces. Dictated by: Dictated on workstation # [id number]
== END 2023-02-20 12:17 ==
LOC: PREOP 05:34
PROVIDERS: ATTEND Orthopaedic Surgery
DX: Z01.811 Encounter for preprocedural respiratory examination (principal); M17.12 Unilateral primary osteoarthritis, left knee
CPT/HCPCS: 36415; 71046; 80053; 81000; 85025; 85610; 86850; 86900; 86901; 87081; 87088

== ENCOUNTER 2023-02-27 06:09 | Day surgery (SDC) | payer OTHER ==
--- NOTE | 2023-02-11 09:53 | HISTORY AND PHYSICAL ---
DATE OF SERVICE: 02/27/2023 ADMISSION HISTORY AND PHYSICAL This will be for inpatient admission on 02/27/2023 for left total knee arthroplasty. ADMISSION DATE: 02/27/2023 HISTORY: The patient is a 57-year-old female with longstanding left knee pain. Radiographs reveal severe medial, lateral and patellofemoral arthrosis. She has undergone treatment with arthroscopy as well as injections, which are no longer effective. Due to functional impairment and failure to improve with conservative measures, the patient has elected to proceed with surgical intervention. REVIEW OF SYSTEMS: No chest pain, no shortness of breath. No dysuria. PAST MEDICAL HISTORY: Breast cancer, hypertension. PAST SURGICAL HISTORY: Right ankle, breast reduction, lumpectomy with reconstruction, Gisela-en-Y for weight loss, bilateral knee arthroscopies, right total knee arthroplasty, and cholecystectomy. FAMILY HISTORY: Ischemic heart disease. PRIMARY CARE PROVIDER: Dr. Wallace. MEDICATIONS: Letrozole, vitamin D, vitamin complex, calcium, acyclovir, Claritin, multivitamin, Rosuvastatin. ALLERGIES: No known drug allergies. SOCIAL HISTORY: The patient drinks socially. She denies tobacco use. PHYSICAL EXAMINATION: GENERAL: The patient is well-developed, well-nourished, in no acute distress. HEENT: Normocephalic, atraumatic. Pupils are equal, round, reactive to light. Oropharynx is clear. NECK: Supple. No lymphadenopathy. LUNGS: Clear to auscultation bilaterally. HEART: Regular rate and rhythm. ABDOMEN: Soft, nontender, nondistended. EXTREMITIES: The left lower extremity demonstrates varus alignment. She is tender along her medial joint line. She has pain medially with Wan's. There is no varus or valgus laxity. Negative anterior and posterior drawer. Active range of motion is 0/2/125. IMPRESSION: Severe left knee osteoarthritis, unresponsive to conservative measures. PLAN: Left total knee arthroplasty. The risks, benefits, options, ramifications and recovery have been discussed at length with the patient. She understands and wishes to proceed. Job ID: [id number] DocumentID: [id number] Dictated Date: 02/11/2023 08:12:21 Medical Pathologist Date: 02/11/2023 09:12:00 Dictated By: LU KUMAR MD
[2023-02-27] VITALS (11 sets, daily range): BP systolic 98–127; BP diastolic 53–81
[~2023-02-27] VITALS: Ht 175.3 cm; Wt 105.9 kg
--- OUTSIDE RECORDS SUMMARY | 2023-02-27 06:14 | XMS REPORT ---
Author Author [facility] ter of [facility] ter of [facility] Address Unknown Phone Unavailable Care Team Providers Care Wood Lathe Operator Name Role Phone DIA RIOJAS Unavailable PROBLEMS Type Condition ICD9-CM Code [id number] Code Onset Dates Condition Status W/U Status Risk SNOMED Code Notes Problem Flank pain R10.9 confirmed 367152543 Problem Bladder irritation N32.89 confirmed [id number] ALLERGIES No Known Allergies ENCOUNTERS from 1965 to 2022-11-23 Encounter Location Date Provider Diagnosis [facility] [address] [facility] [id number] [address] 11 Nov, 2020 DIA RIOJAS Cough R05 IMMUNIZATIONS Vaccine Route Administration Date Status COVID-19 Pfizer (history) Unknown Apr 02, 2020 Ad ministered COVID-19 Pfizer (history) Unknown Apr 22, 2020 Ad ministered COVID-19 Pfizer (history) Unknown Jan 12, 2021 Ad ministered 2nd Booster PFIZER, COVID-19 , 0.3ml (Comirnaty) IM Intramuscular September 20, 2021 Administered 1st Booster PFIZER Bivalent , COVID-19, 0.3mL (Comirnaty) IM Intramuscular Jan 05, 2022 Administered PRIVATE FLU -23 (FLULAVAL) AGE 6MO AND UP IM Intramuscular Jan 05, 2022 Administered SOCIAL HISTORY Sex Assigned At : Social History Observation Description Sex Assigned At Unknown PHQ2 Question Answer Notes In the last 2 weeks, how oft en have you had little interest or pleasure in doing things? Not at all In the last 2 weeks, how oft en have you been feeling down, depressed, or hopeless? Not at all Total PHQ2 Score 0 REASON FOR REFERRAL No Information MEDICATIONS Medication SIG (Take, Route, Frequency, Duration) Notes Start Date End Date Status Ondansetron HCl 4 MG 1 tablet Orally every 8 hours as needed for 5 days May, Active Baclofen 10 MG 1 tablet with food or milk Orally at bedtime as needed for 7 days Active Claritin 10 MG 1 tablet Orally Once a day Active Phenazopyridine HCl 100 MG 2 tablets after meals Orally Three times a day for 2 day(s) Info: give after meals May, Active Letrozole 2.5 MG 1 tablet Orally Once a day Active REASON FOR VISIT Covid Testing-symptomatic, fully vax, no known exposure, red keisha MEDICAL (GENERAL) HISTORY Type Description Date Medical History breast cancer Medical History kidney stone Medical History bariatric weight loss surgery Surgical History bariatric weight loss surgery Surgical History lumpectomy Surgical History breast reconstruction Hospitalization History surgeries MENTAL STATUS No Information ASSESSMENTS Encounter Date Diagnosis Assessment Notes Treatment Notes Treatment Clinical Notes Nov, Cough (ICD-10 - R05) Nov, Other Patient was instructed to self-isolate at home until further instruction from clinic staff PLAN OF TREATMENT Medication Medication Name Sig Start Date Stop Date Ondansetron HCl 4 MG 1 tablet Orally gisele ry 8 hours as needed for 5 days May, Phenazopyridine HCl 100 MG 2 tablets aft er meals Orally Three times a day for 2 day(s) May, Baclofen 10 MG 1 tablet with food o r milk Orally at bedtime as needed for 7 days Insurance Providers Payer Name Payer Address Payer Phone Insured Name Patient Relationship to Insured Coverage Start Date Coverage End Date Subscriber Number Group Number [facility] [employer] Benefits [address] [facility] [id number] Caroline Cheng Self - patient is the insured 2 2 [id number] [place] [id number] [facility] [id number] 01 Caroline Cheng Self - patient is the insured 1 1 [id number]
--- OUTSIDE RECORDS SUMMARY | 2023-02-27 06:14 | XMS REPORT ---
Author Author [facility] ter of [facility] ter of [facility] Address Unknown Phone Unavailable Care Team Providers Care First Calender Worker Name Role Phone JULIO MONROY Unavailable PROBLEMS Type Condition ICD9-CM Code [id number] Code Onset Dates Condition Status W/U Status Risk SNOMED Code Notes Problem Flank pain R10.9 confirmed [id number] Problem Bladder irritation N32.89 confirmed [id number] ALLERGIES No Known Allergies ENCOUNTERS from 1965 to 2022-10-16 Encounter Location Date Provider Diagnosis [facility] [address] [facility] [id number] [address] Oct, JULIO MONROY History of renal stone Z87.442 and Hematuria, unspecified type R31.9 IMMUNIZATIONS Vaccine Route Administration Date Status 1st Booster PFIZER Bivalent , COVID-19, 0.3mL (Comirnaty) IM Intramuscular Jan 05, 2022 Administered PRIVATE FLU 22-23 (FLULAVAL) AGE 6MO AND UP IM Intramuscular Jan 05, 2022 Administered 2nd Booster PFIZER, COVID-19 , 0.3ml (Comirnaty) IM Intramuscular September 20, 2021 Administered COVID-19 Pfizer (history) Unknown Jan 12, 2021 Ad ministered COVID-19 Pfizer (history) Unknown Apr 22, 2020 Ad ministered COVID-19 Pfizer (history) Unknown Apr 02, 2020 Ad ministered SOCIAL HISTORY Sex Assigned At : Social [...] Score 0 REASON FOR REFERRAL No Information VITAL SIGNS Height 67.5 in Oct, Height-cm 171.45 cm Oct, Weight 236 lbs Oct, Weight-kg 107.05 kg Oct, Temperature 97.5 degrees Fahrenheit Oct, Heart Rate 80 bpm Oct, Respiratory Rate 18 bpm Oct, Oximetry 97 % Oct, BMI 36.41 kg/m2 Oct, Blood pressure systolic 136 mmHg Oct, Blood pressure diastolic 84 mmHg Oct, MEDICATIONS Medication SIG (Take, Route, Frequency, Duration) [...] Once a day Active REASON FOR VISIT possible kidney stone had one in July. Had intense cramps and back pain. Today she woke up and thought she had blood in her urine and feeling like she is having cramps again. No back pain as of yet.--VALERIE Zeng MEDICAL (GENERAL) HISTORY Type Description Date Medical History breast cancer Medical History kidney stone Medical History bariatric weight loss surgery Surgical History bariatric weight loss surgery Surgical History lumpectomy Surgical History breast reconstruction Hospitalization History surgeries MENTAL STATUS No Information ASSESSMENTS Encounter Date Diagnosis Assessment Notes Treatment Notes Treatment Clinical Notes Oct, Hematuria, unspecified type (ICD-10 - R31.9) Blood in the Urine: Care Instructions material was published likely a kidney stone, push water nsaids as sarah rtc for toradol inj if needed follow up with liz on oct, History of renal stone (ICD-10 - Z87.442) Oct, Other Medications as directed, supportive care and monitoring, rest as able, push fluids to maintain hydration. Office visit it not improving. Patient verbalized understanding of above instructions. PLAN OF TREATMENT Medication Medication Name Sig [...] at bedtime as needed for 7 days Treatment Notes Assessment Notes Clinical Notes Hematuria, unspecified type Blood in the Urine: Care Instructions material was published likely a kidney stone, push water nsaids as sarah rtc for toradol inj if needed follow up with liz on saturday Next Appt Details if not improving with PCP or reg follow up Reason: Insurance Providers Payer Name Payer Address Payer Phone Insured Name Patient Relationship to Insured Coverage Start Date Coverage End Date Subscriber Number Group Number [facility] [employer] Benefits [address] [facility] [phone] Caroline Cheng Self - patient is the insured 2 2 [id number] [facility] [address] [facility] [id number] 01 Caroline Cheng Self - patient is the insured 1 1 [id number]
--- OUTSIDE RECORDS SUMMARY | 2023-02-27 06:14 | XMS REPORT ---
Author Author [facility] ter of [facility] ter of [facility] Address Unknown Phone Unavailable Care Team Providers Care Hospital Account Liaison Name Role Phone ULYSSES CHIN Unavailable PROBLEMS Type Condition ICD9-CM Code [id number] Code Onset Dates Condition Status W/U Status Risk SNOMED Code Notes Problem Flank pain R10.9 confirmed [id number] Problem Bladder irritation N32.89 confirmed [id number] ALLERGIES No Known Allergies ENCOUNTERS from 1965 to 2022-11-05 Encounter Location Date Provider Diagnosis [facility] [address] [facility] [facility] [id number] [address] Oct, CRYSTAL ELSY Dysuria R30.0 and Pelvic pressure in female R10.2 IMMUNIZATIONS Vaccine Route Administration Date Status PRIVATE FLU 22-23 (FLULAVAL) AGE 6MO AND UP IM Intramuscular Jan 05, 2022 Administered 1st Booster PFIZER Bivalent , COVID-19, 0.3mL (Comirnaty) IM Intramuscular Jan 05, 2022 Administered 2nd [...] in Oct, Height-cm 171.45 cm Oct, Weight 232.7 lbs Oct, Weight-kg 105.55 kg Oct, Temperature 97.2 degrees Fahrenheit Oct, Heart Rate 78 bpm Oct, Respiratory Rate 18 bpm Oct, Oximetry 97 % Oct, BMI 35.90 kg/m2 Oct, Blood pressure systolic 130 mmHg Oct, Blood pressure diastolic 68 mmHg Oct, MEDICATIONS Medication SIG (Take, Route, [...] day Active REASON FOR VISIT possible kidney infection-was seen a couple of weeks ago and was passing a fragment of a previous kidney stone. She is now having urinary freuquency and pressure.--VALERIE Zeng MEDICAL (GENERAL) HISTORY Type Description Date Medical History breast cancer Medical History kidney stone Medical History bariatric weight loss surgery Surgical History bariatric weight loss surgery Surgical History lumpectomy Surgical History breast reconstruction Hospitalization History surgeries MENTAL STATUS No Information ASSESSMENTS Encounter Date Diagnosis Assessment Notes Treatment Notes Treatment Clinical Notes Oct, Dysuria (ICD-10 - R30.0) Oct, Pelvic pressure in female (ICD-10 - R10.2) Pelvic Pain: Care Instructions material was published PLAN OF TREATMENT Medication Medication Name Sig [...] days Treatment Notes Assessment Notes Clinical Notes Pelvic pressure in female Pelvic Pain: C are Instructions material was published Next Appt Details if not improving or regular follow up with pcp Reason: Insurance Providers Payer Name Payer Address Payer Phone Insured Name Patient Relationship to Insured Coverage Start Date Coverage End Date Subscriber Number Group Number [employer] [place] [address] [facility] [id number] Caroline Cheng Self - patient is the insured 1 1 [id number] [facility] Benefits [address] [facility] [id number] 05 Caroline Cheng Self - patient is the insured 2 2 [id number]
[2023-02-27] MEDS ORDERED: CEFUROXIME INJECTION 1,500 MG in NS (IVPB) 50 ML 50 ML IV ONE (06:15)
[2023-02-27] MEDS ORDERED: CEFUROXIME 1.5 GM VIAL ONE ×2 (06:18→06:19)
[2023-02-27] MEDS ORDERED: NS (IVPB) 100 ML 100 ML ONE (06:19)
[2023-02-27] MEDS ORDERED: MIDAZOLAM INJ 2 MG/2 ML VIAL ONE (06:56)
[2023-02-27] MEDS ORDERED: fentaNYL INJECTION 100 MCG/2 ML VIAL ONE ×2 (06:56→06:58)
[2023-02-27] MEDS ORDERED: GABA300S3 PO (06:57)
[2023-02-27] MEDS ORDERED: ACET-93 PO (06:57)
[2023-02-27] MEDS ORDERED: CELE50CA PO (06:57)
[2023-02-27] MEDS: LACTATED RINGERS 1,000 ML 1,000 ML IV PRN ×2 (06:58→08:16)
[2023-02-27] MEDS ORDERED: diphenhydrAMINE INJ 50 MG/ML VIAL IVP PRN (07:30)
[2023-02-27] MEDS ORDERED: INTRA-ARTICULAR IU ONE ×5 (07:30)
[2023-02-27] MEDS ORDERED: ONDANSETRON INJECTION 4 MG/2 ML (SDV) IV PRN (07:30)
[2023-02-27] MEDS ORDERED: TEMAZEPAM 15 MG (RESTORIL) CAP PO PRN (07:30)
--- NOTE | 2023-02-27 07:35 | Progress Note-Pre Operative ---
Pre-Operative Progress Note Date of Available H&P: Feb 11, 2023 Date H&P Reviewed: Feb 27, 2023 Time H&P Reviewed: 07:11 Changes from last HP none Pre-Operative Diagnosis: left knee primary osteoarthritis LU KUMAR MD Feb 27, 2023 07:35
--- NOTE | 2023-02-27 07:36 | Progress Note-Post Operative ---
Post-Operative Progess Note Surgeon (s)/Camp Director (s) Surgeon LU KUMAR MD Camp Director: Nahun Mackenzie Pre-Operative Diagnosis left knee primary osteoarthritis Post-Operative Diagnosis left knee primary osteoarthritis Procedure & Operative Findings Date of Procedure 02/27/23 Procedure Performed/Findings left total knee arthroplasty Anesthesia Type spinal Estimated Blood Loss Estimated blood loss (mL): minimal Specimens/Packing Specimens Removed none Packing: none LU KUMAR MD Feb 27, 2023 07:36
--- NOTE | 2023-02-27 07:38 | D/C HH Face to Face Order ---
D/C Face to Face Orders Reconcile Patient Problems Problems Reviewed?: Yes Instructions for Patient Via [employer], Patient Instructions/FollowUp: three weeks Physician to follow Patient: three weeks Discharge Diet for Home: Regular Diet Patient Data-Allergies,Ht & Wt Patient Allergies: Coded Allergies: NSAIDS (Non-Steroidal Anti-Inflamma (Verified Allergy, Unknown, WEIGHT LOSS SURGERY, 02/27/23) Height (Feet): 5 Height (Inches): 8.00 Weight (Pounds): 390 Weight (Ounces): 0.0 Home Health Need/Face to Face Date of Face to Face: Feb 27, 2023 Clinical Findings: Muscle weakness, Pain with ambulation, Unsteady gait I have seen Pt zjwl-gx-jhev: Yes Discharged To: Home Diagnosis/Conditions: left total knee arthroplasty Patient is Homebound due to: Muscle weakness, Pain w/ambulation Homebound Status Due to the above stated illness, injury or surgical procedure (medical condition or diagnosis) and associated clinical findings, the patient is homebound because of his/her inability to leave home except with aid of a supportive device and/or person AND leaving the home requires a considerable and taxing effort or is medically contraindicated. Pt req the following assistanc: Walker Home Health Nursing Orders Home Health Services Order: Physical Therapy-Evaluate & Treat DC left knee chelsea and apply steri strips 03/13/23 Home Health Infusion Therapy Line Start Date: Feb 27, 2023 Therapy Orders Therapy Orders: Physical Therapy, PT to assess for OT Therapy Specific Orders: Eval assistive deivces, Teach enviro modifications/safety, Gait training, Increase strength/endurance, Provider maintenance therapy, Restore ROM Certify Stmt I certify that this patient is under my care and that I, a nurse practitioner or a physician; a assistant finance director working with me, had a face to face encounter that - meets the physician face to face encounter requirements with this patient as dated. LU KUMAR MD Feb 27, 2023 07:38
[2023-02-27] MEDS ORDERED: TRANEXAMIC ACID 100 MG/ML 10 ML INJECTION ONE (07:56)
[2023-02-27] MEDS ORDERED: ROPIVACAINE 5 MG/ML 30ML VIAL ONE (08:29)
[2023-02-27] MEDS ORDERED: BUPIVACAINE 0.5% 30 ML VIAL ONE (09:04)
[2023-02-27] MEDS ORDERED: fentaNYL INJECTION 100 MCG/2 ML VIAL IVP ONE (09:30)
[2023-02-27] MEDS ORDERED: morphine INJ 10 MG/ML 1ML (SYR OR VIAL) IVP ONE (09:30)
[2023-02-27] MEDS ORDERED: MEPERIDINE INJ 50 MG/ML VIAL IVP ONE (09:30)
--- NOTE | 2023-02-27 10:56 | Progress Note ---
Standard Progress Note Progress Notes/Assess & Plan Date Seen by a Provider: Feb 27, 2023 Time Seen by a Provider: 09:32 Progress/Assessment & Plan post op check no complaints spinal in effect LLE--brisk cap refill with 2 plus DP pulse s/p LTKA mobilize as able LU KUMAR MD Feb 27, 2023 10:56
[2023-02-27] MEDS: SENNA W/DOCUSATE TABLET PO SCH ×2 (12:27→19:57)
--- NOTE | 2023-02-27 14:33 | OPERATIVE REPORT ---
DATE OF SERVICE: 02/27/2023 PREOPERATIVE DIAGNOSIS: Left knee primary osteoarthritis. POSTOPERATIVE DIAGNOSIS: Left knee primary osteoarthritis. PROCEDURE: Left total knee arthroplasty. SURGEON: Joel Kumar MD FIRMWARE SOFTWARE VERIFICATION ENGINEER: Nahun Mackenzie, who assisted throughout the procedure and closed the incision. ANESTHESIA: Spinal by Nahun Carson CRNA. TOURNIQUET TIME: 55 minutes at 300 mmHg. ESTIMATED BLOOD LOSS: Minimal. DRAINS: None. COMPLICATIONS: None. POSTOPERATIVE PLAN: Routine protocol. The patient was transferred to the recovery room awake and stable condition. MATERIALS: Microport cemented size 5 femur, cemented size 5 tibia with 10 mm insert and cemented size 29 patellar button. STATEMENT OF MEDICAL NECESSITY: The patient is a 57-year-old female with longstanding progressive left knee pain. She has undergone treatment with injections, anti-inflammatories, arthroscopy and rest without relief. Radiographs revealed severe tricompartmental osteoarthritis. Due to functional impairment and failure to improve with conservative measures, the patient elected to proceed with surgical intervention. DESCRIPTION OF PROCEDURE: After risks and benefits of the procedure were discussed and questions were answered and informed consent was signed and placed on the chart, the operative site was confirmed in the preoperative holding area initialed by surgeon. The patient was then transported to the operating room and after adequate levels of regional anesthetic were obtained, a timeout was called, confirming the operative site. The left lower extremity was prepped and draped in the usual sterile fashion. With the leg elevated and the knee flexed, tourniquet was inflated to 300 mmHg. Standard anterior approach was utilized. Hemostasis was obtained with cautery. A medial parapatellar arthrotomy was performed, leaving 1 cm cuff on the patella for later reattachment. A portion of the fat pad was resected. The ACL was resected. The custom block was placed on the femur with good coverage. This was then pinned into position and the distal cut was made. The 5 cutting block was placed at the previously drilled holes and cuts were made from posterior to anterior. Subperiosteal release was then carefully performed on the posterior distal femur, being careful to stay on the bony surface. The custom block was then placed on the tibia. Again, this provided excellent coverage and this was pinned into position. The drop beny transected the intermalleolar axis and the cut was made. The 5 baseplate was pinned into position. Again, the drop beny transected the intermalleolar axis. This was then prepared with the drill and keel punch. The femoral trial was placed and trochlear cut was made. A 10 mm insert trial was placed. The patella was then prepared by resecting 10 mm off the undersurface using the freehand technique, the peg guide was placed and the peg holes were drilled. The 29 trial was placed and knee was taken through range of motion. Full extension was easily obtained, 120 degrees of flexion with gravity was easily obtained. There was no anterior/posterior or medial/lateral laxity in flexion or extension. The trials were removed. The joint was irrigated with pulse lavage. In addition, IrriSept was used throughout the procedure. The bone ends were irrigated and dried. The tibial baseplate was cemented in position. Excessive cement was removed. The superior surface was irrigated and dried and the polyethylene insert was placed. Distal femur was irrigated and dried the femoral prosthesis was cemented into position. Excessive cement was removed. The knee was brought out into full extension until cement had cured. The undersurface of the patella was irrigated and dried. The patellar button was cemented into position. Excessive cement was removed. The knee was held in full extension until the cement had cured. The knee was copiously irrigated. After the cement had cured, the knee was taken through range of motion. Full extension was easily obtained under 20 degrees of flexion with gravity was easily obtained. The patella tracked well. There was no anterior/posterior or medial/lateral laxity in flexion or extension. The joint was further irrigated with IrriSept and pulse lavage. The arthrotomy was closed with #2 Tevdek in trgzis-px-vgnve interrupted fashion. Knee was flexed. Repair was stable. Subcutaneous tissues were irrigated using a total of 6 liters throughout the procedure and 450 mL of IrriSept. 0 Vicryl was used to deep subcutaneous layer, 2-0 Vicryl for the superficial subcutaneous layer, chelsea used on the skin and soft dressing was applied. The tourniquet was deflated and the patient was transported to the recovery room awake and stable condition. Job ID: [id number] DocumentID: [id number] Dictated Date: 02/27/2023 09:14:42 Sales And Marketing Intern Date: 02/27/2023 14:30:00 Dictated By: JOEL KUMAR MD
[2023-02-27] MEDS: oxyCODONE/ACETAMINOPHEN 5/325MG TABLET PO PRN ×2 (14:35→19:02)
--- NOTE | 2023-02-27 14:39 | Physical Therapy Evaluation ---
PT Evaluation-General Medical Diagnosis Admission Date Feb 27, 2023 at 06:09 Medical Diagnosis: Left TKA Onset Date: Feb 27, 2023 Therapy Diagnosis Therapy Diagnosis: Gait deficit, strength deficit Height/Weight Height (Feet): 5 Height (Inches): 8.00 Weight (Pounds): 390 Weight (Ounces): 0.0 Precautions Precautions/Isolations: Fall Prevention, Standard Precautions Weight Bear Status Right Lower Extremity: Right Full Weight Bearing Left Lower Extremity: Left Weight Bearing/Tolerated Referral Physician: Dr. Hodge Reason for Referral: Evaluation/Treatment Medical History Pertinent Medical History: Arthritis, Breast CA S/P Mastectomy, OA Social History Home: Single Level Current Living Status: Spouse Entry Into Home: Stairs Without Railing PT Steps Into Home: 2 Prior Prior Level of Function SCALE: Activities may be completed with or without assistive devices. 5-Icuxcbqiqe-gvvrtoe completes the activity by him/herself with no assistance from a helper. 5-Set-up or Clean-up Assistance-helper sets up or cleans up; patient completes activity. [place] assists only prior to or following the activity. 4-Supervision or Touching Assistance-helper provides verbal cues and/or touching/steadying and/or contact guard assistance as patient completes activity. Assistance may be provided throughout the activity or intermittently. 3-Partial/Moderate Assistance-helper does LESS THAN HALF the effort. [place] lifts, holds or supports trunk or limbs, but provides less than half the effort. 2-Substantial/Maximal Assistance-helper does MORE THAN HALF the effort. [place] lifts or holds trunk or limbs and provides more than half the effort. 8-Rxmwbvfec-nwlihv does ALL the effort. Patient does none of the effort to complete the activity. Or, the assistance of 2 or more helpers is required for the patient to complete the activity. If activity was not attempted, code reason: 7-Patient Refused. 9-Not Applicable-not attempted and the patient did not perform the activity before the current illness, exacerbation or injury. 10-Not Attempted due to Environmental Limitations-(lack of equipment, weather restraints, etc.). 88-Not Attempted due to Medical Conditions or Safety Concerns. Bed Mobility: 6 Transfers (B,C,W/C): 6 Gait: 6 Stairs: 6 Indoor Mobility (Ambulation): Independent Stairs: Independent PT Evaluation-Current Subjective Patient lying supine in bed upon PT arrival, agreeable to treatment. Patient rates pain at 0/10 currently. Objective Patient Orientation: Person, Place, Time, Situation Attachments: IV ROM/Strength ROM Lower Extremities Left knee flexion/Extension 105/0 degrees. Right LE WFLs all planes Sensory Vision: Functional Hearing: Functional Sensation Right Lower Extremit: Intact Sensation Left Lower Extremity: Intact Transfers Roll Left to Right (QC): 4 Sit to Lying (QC): 4 Lying to Sitting/Side of Bed(Q: 4 Sit to Stand (QC): 2 Chair/Gbd-ev-Xmuba Xfer(QC): 2 Gait Does the Patient Walk?: No and Walking Goal IS indicated Mode of Locomotion: Walk Anticipated Mode of Locomotion: Walk Balance Sitting Static: Normal Sitting Dynamic: Normal Standing Static: Poor Standing Dynamic: Poor Assessment/Needs Patient performs all bed mobility and transfers with SBA to max A. Patient attempts sit to stand and knees immediately give out. She was returned to sitting EOB, then performed SPT with max A to the chair. Patient in chair post treatment with all needs met, nursing notified, call light in hand. Rehab Potential: Fair PT Lens Gauger Goals Care Home Goals PT Care Home Goals Time Frame: Mar 29, 2023 Roll Left & Right (QC): 6 Sit to Lying (QC): 6 Lying-Sitting on Side/Bed(QC): 6 Sit to Stand (QC): 6 Chair/Qse-yk-Lalxl Xfer(QC): 6 Toilet Transfer (QC): 6 Does the Patient Walk: Yes Walk 10 feet (QC): 6 Walk 50ft with 2 Turns (QC): 6 Walk 150 ft (QC): 6 1 Step (curb) (QC): 4 4 Steps (QC): 4 PT Plan Problem List Problem List: Activity Tolerance, Functional Strength, Safety, Balance, Gait, Transfer, Bed Mobility, ROM Treatment/Plan Treatment Plan: Continue Plan of Care Treatment Plan: Bed Mobility, Education, Functional Activity Soto, Functional Strength, Group Therapy, Gait, Safety, Therapeutic Exercise, Transfers Treatment Duration: Mar 30, 2023 Frequency: 11 times per week Estimated Hrs Per Day: .25 hour per day Patient and/or Family Agrees t: Yes Safety Risks/Education Patient Education: Transfer Techniques Teaching Recipient: Patient Teaching Methods: Demonstration, Discussion Response to Teaching: Verbalize Understanding, Return Demonstration Time Time In: 1315 Time Out: 1332 DATE: Feb 27, 2023 Total Billed Treatment Time: 17 Total Billed Treatment Visit, KAY SANTANA PT Feb 27, 2023 14:39
--- NOTE | 2023-02-27 15:21 | Progress Note - Hospitalist ---
Objective Exam Vital Signs Vital Signs Date Time Temp Pulse Resp B/P (MAP) Pulse Ox O2 Delivery O2 Flow Rate FiO2 02/27/23 12:52 Room Air 02/27/23 11:05 35.6 60 15 98/57 (71) 99 02/27/23 09:50 3.00 Capillary Refill : Less Than 3 Seconds Results/Procedures Lab Patient resulted labs reviewed. Assessment/Plan Assessment and Plan Assess & Plan/Chief Complaint s/p total knee arthroplasty Osteoarthritis of the left knee Ortho primary, Dr. Hodge PT/OT Social work consulte Pain regimen Bowel regimen Incentive spirometry Lovenox Hyperlipidemia Breast cancer in remission Morbid obesity History of gastric bypass Continue home meds as able DVT ppx: Lovenox MADYSON BAUGH MD Feb 27, 2023 15:20
--- NOTE | 2023-02-27 15:28 | Consultation - Hospitalist ---
HPI History of Present Illness: HPI/Chief Complaint Patient was admitted to the hospital for left osteoarthritis of her knee for knee replacement. She had surgery this morning and reports that she is doing very well. Her pain is controlled and she has already been up with PT. She has no complaints at this time. Source: patient Date Seen 02/27/23 Attending Physician Sherif Wallace DO PCP Admitting Physician: Joel Hodge MD Attending Physician: Joel Hodge MD Referring Physician Date of Admission Feb 27, 2023 at 06:09 Home Medications & Allergies Home Medications Reviewed patient Home Medication Reconciliation performed by pharmacy medication reconciliations highway maintenance technician and/or nursing. Patients Allergies have been reviewed. Allergies Allergies Coded Allergies NSAIDS (Non-Steroidal Anti-Inflamma (Verified Allergy, Unknown, WEIGHT LOSS SURGERY, 02/27/23) aspirin (Verified Allergy, Unknown, STOMACH UPSET, 02/27/23) Past Iasezpn-Vgwfdb-Cjqfqw Hx Patient Social History Tobacco Use?: No Smoking Status: Never a Smoker Smokeless Tobacco Frequency: Never a User Use of E-Cig and/or Vaping dev: No Use of E-Cig and/or Vaping Zoltan: Never a User Substance use?: No Alcohol Use?: Yes Alcohol type: Beer, Wine Alcohol Frequency: Several times a month Pt feels they are or have been: No Immunizations Up To Date Date of Influenza Vaccine: Feb 13, 2023 First/Initial COVID19 Vaccinat: 04/02/20 Second COVID19 Vaccination Jaya: 05/22 Tetanus Booster (TDap): Unknown Hepatitis A: No Hepatitis B: No Seasonal Allergies Seasonal Allergies: Yes Current Status status: No status: No Advance Directives: No Advance Directive Location: Home Communicates: Verbally Primary Language: [place] Preferred Spoken Language: Guinean Is interpretation needed?: No Sensory deficits: Vision impairment, Other Implanted or Applied Medical D: Orthopedic hardware Past Medical History Surgeries: Adenoidectomy, Breast, Gallbladder, Joint Replacement, Tonsillectomy Sleep Apnea Currently Using CPAP: No Currently Using BIPAP: No Hypertension Neuropathy [employer] History: Menopausal Sexually Transmitted Disease: No HIV/AIDS: No Kidney Stones Gastroesophageal Reflux, Polyps, Gall Bladder Disease Arthritis, Fractures Tonsilitis Loss of Vision: Bilateral Hearing Impairment: Denies Breast Did You Recieve Any Treatments: Yes What Type of Treatment Did You: Chemotherapy, Radiation, Surgical Intervention LUMPECTOMY, 2 LYMPH NODES REMOVED AND RECONSTRUCTION OF THE RIGHT SIDE. PT HAS BEEN MONITORED FOR 5 YEARS FOR LYMPHODEMA AND THERE IS NO LONGER CONCERN FOR REACTIONS TO USING HER RIGHT SIDE. NO LIMB RESTRICTIONS ARE NEEDED AT THIS TIME Blood Disorders: Yes (ANEMIA) Adverse Reaction/Blood Tranf: No (N/A) Family Medical History No Pertinent Family Hx Review of Systems Constitutional: see HPI Physical Exam Physical Exam Vital Signs Vital Signs - First Documented 02/27/23 06:20 Temp 36.1 Pulse 71 Resp 18 B/P (MAP) 116/70 (85) Pulse Ox 98 O2 Delivery Room Air Capillary Refill : Less Than 3 Seconds Height, Weight, BMI Height: 5'8.00" Weight: 390lbs. 0.0oz. 176.751296hs; 34.46 BMI Method:Estimated General Appearance: No Apparent Distress, Obese Respiratory: Lungs Clear, No Respiratory Distress Cardiovascular: Regular Rate, Rhythm, No Murmur Gastrointestinal: Normal Bowel Sounds, Soft Neurologic/Psychiatric: Alert, Oriented x3 Results Results/Procedures Labs Patient resulted labs reviewed. Imaging: Reviewed Imaging Report Imaging [facility], [place] NAME: [facility] REC#: [id number] PT STATUS: ADM IN : 1965 PHYSICIAN: MIRIAM ADAMES ADMIT DATE: 02/27/23 Draft Date of Exam:02/27/23 KNEE, LEFT, 2 VIEWS (AP & LAT) INDICATION: Status post total left knee replacement. COMPARISON: None. FINDINGS: Multiple radiographic views of the left knee were obtained. Expected postoperative changes are seen from left knee total arthroplasty. Femoral and tibial components appear well-seated. There is no evidence of periprosthetic fracture. No unexpected radiopaque foreign bodies are identified. IMPRESSION: Expected postsurgical changes from left knee total arthroplasty, as described above. No evidence of hardware compromise. Dictated on workstation # [id number] Dict: 02/27/23 1550 Trans: 02/27/23 1552 [id number] Interpreted by: RUPESH CABRERA MD Electronically signed by: Assessment/Plan Assessment and Plan Assess & Plan/Chief Complaint s/p total knee arthroplasty Osteoarthritis of the left knee Ortho primary, Dr. Hodge PT/OT Social work consulted, appreciate recs Pain regimen Bowel regimen Incentive spirometry Lovenox Hyperlipidemia Breast cancer in remission Morbid obesity History of gastric bypass Continue home meds as able DVT ppx: Lovenox Will round prn, place call for any needs MADYSON BAUGH MD Feb 27, 2023 15:28
[2023-02-27] MEDS: NS IV 1000 ML 1,000 ML IV SCH (15:52)
--- NOTE | 2023-02-27 15:52 | Diagnostic Imaging Report ---
INDICATION: Status post total left knee replacement. COMPARISON: None. FINDINGS: Multiple radiographic views of the left knee were obtained. Expected postoperative changes are seen from left knee total arthroplasty. Femoral and tibial components appear well-seated. There is no evidence of periprosthetic fracture. No unexpected radiopaque foreign bodies are identified. IMPRESSION: Expected postsurgical changes from left knee total arthroplasty, as described above. No evidence of hardware compromise. Dictated by: Dictated on workstation # [id number]
[2023-02-27] MEDS: CEFUROXIME INJECTION 750 MG in NS (IVPB) 50 ML 50 ML IV SCH ×2 (15:54→23:36)
[2023-02-27] MEDS ORDERED: GABAPENTIN 300 MG CAPSULE PO SCH (21:00)
[2023-02-28] MEDS: oxyCODONE/ACETAMINOPHEN 5/325MG TABLET PO PRN ×2 (02:48→09:40)
[2023-02-28] MEDS: NS IV 1000 ML 1,000 ML IV SCH (03:33)
[2023-02-28 03:46] VITALS: BP 138/73
--- NOTE | 2023-02-28 07:52 | Progress Note ---
Standard Progress Note Progress Notes/Assess & Plan Date Seen by a Provider: Feb 28, 2023 Time Seen by a Provider: 07:40 Progress/Assessment & Plan post op check no complaints spinal in effect LLE--brisk cap refill with 2 plus DP pulse s/p LTKA mobilize as able Final Diagnosis no complaints ambulating indep. radiographs--HW well positioned without fracture Vital Signs Date Time Temp Pulse Resp B/P (MAP) Pulse Ox O2 Delivery O2 Flow Rate FiO2 02/28/23 03:46 36.2 80 16 138/73 (94) 97 Room Air 02/27/23 23:57 36.5 73 16 121/81 (94) 99 Room Air 02/27/23 21:00 36.2 70 16 111/58 (75) 98 Room Air 02/27/23 20:02 Room Air 02/27/23 17:00 36.2 67 16 127/65 (85) 99 Room Air 02/27/23 12:52 Room Air 02/27/23 11:05 35.6 60 15 98/57 (71) 99 Room Air 02/27/23 10:15 Room Air 02/27/23 10:05 Room Air 02/27/23 10:00 12 105/59 (74) 99 Room Air 02/27/23 09:55 Room Air 02/27/23 09:50 13 104/53 (70) 100 OxyMask 3.00 02/27/23 09:40 16 105/61 (76) 100 OxyMask 3.00 02/27/23 09:40 OxyMask 3.00 02/27/23 09:30 18 109/61 (77) 100 OxyMask 3.00 02/27/23 09:25 OxyMask 3.00 02/27/23 09:20 14 103/55 (71) 100 OxyMask 8 02/27/23 09:11 OxyMask 8 02/27/23 09:11 36.2 16 112/53 (72) 100 OxyMask 8 I & O 02/28/23 06:59 Intake Total 2965 ml Output Total 1100 ml Balance 1865 ml LLE--sensation intact throughout intact DF and PF of toes and ankle s/p LTKA doing well DC after PT LU KUMAR MD Feb 28, 2023 07:51
[2023-02-28 08:00] VITALS: BP 107/72
[2023-02-28] MEDS ORDERED: ENOXAPARIN 30 MG/0.3 ML SYRINGE SC SCH (08:00)
[2023-02-28] MEDS: SENNA W/DOCUSATE TABLET PO SCH (08:00)
--- NOTE | 2023-02-28 10:00 | Physical Therapy Daily Note ---
PT Daily Note-Current Subjective Patient agrees to PT. Very motivated to return to home this morning. Pain Section J - Health Conditions 1. Rarely or not at all 2. Occasionally 3. Frequently 4. Almost constantly 8. Unable to answer Pain Effect on Sleep: 1 Pain Interference with Therapy: 1 Pain Interference w/Day-to-Day: 1 Transfers SCALE: Activities may be completed with or without assistive devices. 7-Zjdfexyfkc-ifsadsv completes the activity by him/herself with no assistance fr om a helper. 5-Set-up or Clean-up Assistance-helper sets up or cleans up; patient completes activity. [place] assists only prior to or following the activity. 4-Supervision or Touching Assistance-helper provides verbal cues and/or touching/steadying and/or contact guard assistance as patient completes activity. Assistance may be provided throughout the activity or intermittently. 3-Partial/Moderate Assistance-helper does LESS THAN HALF the effort. [place] lifts, holds or supports trunk or limbs, but provides less than half the effort. 2-Substantial/Maximal Assistance-helper does MORE THAN HALF the effort. [place] lifts or holds trunk or limbs and provides more than half the effort. 5-Rubqtkxww-yapyuj does ALL the effort. Patient does none of the effort to complete the activity. Or, the assistance of 2 or more helpers is required for the patient to complete the activity. If activity was not attempted, code reason: 7-Patient Refused. 9-Not Applicable-not attempted and the patient did not perform the activity before the current illness, exacerbation or injury. 10-Not Attempted due to Environmental Limitations-(lack of equipment, weather restraints, etc.). 88-Not Attempted due to Medical Conditions or Safety Concerns. Lying to Sitting/Side of Bed(Q: 6 Sit to Stand (QC): 6 Chair/Cgc-qy-Kylns Xfer(QC): 6 Weight Bearing Right Lower Extremity: Right Full Weight Bearing Left Lower Extremity: Left Weight Bearing/Tolerated Gait Training Distance: 250' Walk 10 feet (QC): 6 Walk 50 ft with 2 Turns(QC): 6 Walk 150 ft (QC): 6 Gait Assistive Device: FWW steady, reciprocal pattern Exercises Supine Ex: Ankle pumps, Quad Set, Heel Slides, Straight leg raise Supine Reps: 15 Seated Therapy Exercises: Long arc quads Seated Reps: 15 Assessment Patient performing HEP PRN without difficulty. Patient progressing with treatment plan and will dismiss to home this a.m. PT Retirement Goals Retirement Goals PT Retirement Goals Time Frame: Mar 29, 2023 Roll Left & Right (QC): 6 Sit to Lying (QC): 6 Lying-Sitting on Side/Bed(QC): 6 Sit to Stand (QC): 6 Chair/Gis-kq-Qcifu Xfer(QC): 6 Toilet Transfer (QC): 6 Does the Patient Walk: Yes Walk 10 feet (QC): 6 Walk 50ft with 2 Turns (QC): 6 Walk 150 ft (QC): 6 1 Step (curb) (QC): 4 4 Steps (QC): 4 PT Plan Treatment/Plan Treatment Plan: Discontinue PT Treatment Plan: Bed Mobility, Education, Functional Activity Soto, Functional Strength, Group Therapy, Gait, Safety, Therapeutic Exercise, Transfers Treatment Duration: Mar 30, 2023 Frequency: 11 times per week Estimated Hrs Per Day: .25 hour per day Patient and/or Family Agrees t: Yes Time Time In: 755 Time Out: 811 DATE: Feb 28, 2023 Total Billed Treatment Time: 16 Total Billed Treatment 1 visit FA 16 min SADA TERRELL PT Feb 28, 2023 10:00
--- NOTE | 2023-02-28 15:27 | Anesthesia-Regional Post-Op ---
Regional Patient Condition Mental Status: Alert, Oriented x3 Circulation: Same as Pre-Op Headache: Absent Sensation: Full Recovery Motor Block: Absent Post Op Complications Complications None Follow Up Care/Instructions Patient Instructions None needed. Anesthesia/Patient Condition Patient is already discharged to home but she was doing well, no complaints, stable vital signs, no apparent adverse anesthesia problems noted per nursing staff prior to her discharge. No complications reported per nursing. PANCHITO DUDLEY DO Feb 28, 2023 15:27
== END 2023-02-28 10:29 | disposition home health service (06) ==
LOC: SDC 06:09 → UNDOADMIN 06:09 → 4TH 06:09 → SURG 06:10 → EDSTATUS 08:00 → 4TH 10:20 → SURG 10:20 → SDC 02-28 10:29 → UNDODISIN 02-28 10:29
PROVIDERS: ATTEND Orthopaedic Surgery
DX: M17.12 Unilateral primary osteoarthritis, left knee (principal); E78.5 Hyperlipidemia, unspecified; E66.01 Morbid (severe) obesity due to excess calories; C50.919 Malignant neoplasm of unspecified site of unspecified female breast; Z68.35 Body mass index [BMI] 35.0-35.9, adult; Z98.890 Other specified postprocedural states
CPT/HCPCS: 27447; 73560; 86850; 86900; 86901; 94664; 97162; 97530; C1713 ×2; C1776 ×4